=== PATIENT | female | born 1935 | race Caucasian/White ===

== ENCOUNTER 2018-09-13 05:22 | Inpatient (IN) ==
[2018-09-13] MEDS ORDERED: Metoprolol Tartrate 25 MG Tablet PO ONE (06:11)
[2018-09-13] MEDS ORDERED: Chlorhexidine Gluconate 2% 1 Pack (2 Cloths) TOPICAL ONE (06:11)
[2018-09-13] MEDS ORDERED: Sodium Chlor 0.9% Inj 40 ML, Bupivacaine Liposo PF 1.3% Inj 20 ML P-ARTICULR SCH ×2 (06:15)
[2018-09-13] MEDS ORDERED: Chlorhexidine 4% Topical 120 APPLIC/120 ML Bottle TOPICAL SCH (06:15)
[2018-09-13] MEDS ORDERED: Glycopyrrolate Inj 1 MG/5 ML Syringe IV.PUSH ONE (06:48)
[2018-09-13] MEDS ORDERED: Neostigmine Inj 5 MG/5 ML Syringe IV.PUSH ONE (06:48)
[2018-09-13] MEDS ORDERED: Phenylephrine/NS 1000 MCG/10ML Syringe IV.PUSH ONE (06:48)
[2018-09-13] MEDS ORDERED: Lidocaine PF 1% Inj 5 ML Syringe OTHER ONE (06:48)
[2018-09-13] MEDS ORDERED: SODIUM CHLOR 0.9% IV.SIG SCH ×2 (07:00→10:00)
[2018-09-13] MEDS ORDERED: ceFAZolin 2 GM Premix Inj 2 GM/50 ML PIGGYBACK IV.SIG SCH (07:00)
[2018-09-13] MEDS ORDERED: TRANEXAMIC ACID IV.SIG SCH ×2 (07:00→10:00)
[2018-09-13] MEDS ORDERED: Sodium Chlor 0.9% Inj 500 ML IV.SIG SCH (07:00)
[2018-09-13] MEDS ORDERED: Tranexamic Acid Inj 0 MG in Sodium Chlor 0.9% Inj 100 ML IV.SIG ONE (10:28)
[2018-09-13] MEDS ORDERED: Aluminum/Magnesium/Simethacone Susp 30 ML UDC PO PRN (10:28)
[2018-09-13] MEDS ORDERED: Acetaminophen 325 MG Tablet PO PRN (10:28)
[2018-09-13] MEDS ORDERED: Post-op Orders (for Pharmacy) OTHER STA (10:28)
[2018-09-13] MEDS ORDERED: Bisacodyl 10 MG Supp RECTAL PRN (10:28)
--- NOTE | 2018-09-13 10:42 | P.OP ---
- Preoperative Diagnosis (1) Primary osteoarthritis of left hip - Postoperative Diagnosis (1) Primary osteoarthritis of left hip Date of procedure: 09/13/18 Procedure: Left total hip arthroplasty using [place] prosthesis (direct anterior) Anesthesia: FARAZ local (Exparel) Surgeon: Fransisco Rothman MD Ball Winder: DEVEN Alvarez Estimated blood loss (mL): 200 Pathology: none sent Operation and Findings: Indications and Findings: This 82-year-old woman has had long-standing arthritis in her left hip that has been nonresponsive to conservative measures. She is unable to take nonsteroidal anti-inflammatory agents because she takes Plavix. She previously had a right total hip arthroplasty through an anterior approach by another orthopedic surgeon. 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 Physical findings showed limited range of motion in the left hip with tenderness on motion. She has an antalgic gait. There is a 1 cm leg length inequality with the left leg being longer than the right. Radiographic findings show severe osteoarthritis in the left hip with osteophytes, subchondral sclerosis and loss of articular cartilage to [id number]. We have had a discussion about her leg length inequality. She is aware that there is a chance that the left leg will be slightly longer than the preoperative findings which would result in her leg length inequality being slightly greater. The alternative of making the leg shorter to match her right leg could make her significantly unstable. Because she had an anterior hip done previously, this is done today. Operative findings: There was severe osteoarthritis in the left hip with loss of articular cartilage to expose subchondral bone. There is subchondral sclerosis. There were osteophytes. Implants: The acetabular component was a 50 mm Trident II cluster shell with a 36 mm inner diameter 0 X3 polyethylene liner. The femoral component was an Accolade 2, size 3 x 132 degree neck angle. The femoral head was a Biolox Delta , 36 mm outer diameter, -5 mm offset. The patient was brought to the clean air operating suite and a general endotracheal 45 anesthetic was administered. The patient was then positioned into a supine position. Both hips and lower extremities were then prepped with alcohol, Hibiclens and ChloraPrep and draped in the usual manner with the hips draped free. Patient received prophylactic antibiotics preoperatively. The patient also received tranexamic acid preoperatively. An appropriate timeout procedure was carried out. An incision was then made from a point 2 fingerbreadths distal and posterior to the anterior superior iliac spine. The incision was deepened through subcutaneous tissues down to the tensor fascia tarik. The fascia tarik was split longitudinally in line with its fibers the length of the incision. The tensor fascia tarik was teased away from the medial aspect of the fascia tarik itself. Retractors were placed in the lateral aspect of the hip at the femoral neck and at the lateral aspect of the greater trochanter. A retractor was placed on the medial side. And relief incision was made in the fascia tarik distally. Hemostasis was then carried out with electrocautery and ties. The posterior aspect of the fascia tarik was opened exposing the periarticular fat, which was excised as well. With retractors placed around the femoral neck as well as under the origin of the rectus femoris and reflected head of the rectus femoris , a longitudinal capsulotomy was made longitudinally along the femoral neck to the base of the femoral neck. Dissection was then carried out along the edge of the acetabulum. This was then carried down to the anterior aspect of the femoral neck opening the capsule and doing partial capsulectomy. The saw blade was placed into the appropriate position for a neck cut. C-arm fluoroscopy was used to verify its position. A single cut was made across the femoral neck. A second cut was made proximal to this under the femoral head. The napkin ring of bone was removed. The femoral head was removed. The acetabular soft tissues were cleaned including the depths of the acetabulum and the remnants of the ligamentum teres as well as the labrum. Retractors were placed about the acetabulum. Reaming this was initiated with a 45 millimeter reamer. This was carried in 1-2 mm increments up to 49 millimeters. A 50 millimeter external diameter trial prosthesis was placed into the acetabulum and seated appropriately. C-arm fluoroscopy verified this position. The trial prosthesis was removed. The actual prosthesis as noted above was impacted in place. When this was seated C arm fluoroscopy verified the appropriate position. A drill hole was made into the pelvis through the fenestration in the cup. An appropriate sized screw was inserted. Release of the capsule around the femur was then carried out with electrocautery. A bone hook in the medullary canal helped to position and appropriate this appropriately. With the previous retractors removed, retractors were placed about the proximal femur. Carefully, a double pronged retractor was placed under the tip of the greater trochanter posteriorly. The hook was used to laterally and distally place the proximal end of the femur. The position was placed into Trendelenburg with the foot dropped somewhat to break the bed. This hyperextended the hip. Preparation of the femur was initiated with a box osteotome followed by a curet to identify the medullary canal. Broaching was initiated with the starting broach and went in 1 size increments from size 0 up to size 3. The broach handle was removed. The femoral neck was trimmed with a calcar planar. Osteophytes were trimmed from the acetabulum. Local anesthetic was administered throughout the area of the acetabulum and posterior aspect of the femur. The trial neck was placed on the broach for the above-noted prosthesis. The femoral head trial was placed onto the femoral neck . A trial reduction was then carried out. Adjustment was made as needed. The stability, leg length and motion were excellent. There was no pistoning. The trial prosthesis was removed. The broach was removed. The femoral component was impacted into the medullary canal of the femur after irrigation and suctioning. When this was appropriately seated a trial reduction was carried out with the trial prosthesis. Again, there was no pistoning. The leg length was appropriate as verified clinically and radiographically. The stability and motion were excellent. The trial prosthesis was removed. After cleaning and drying the trunion of the femoral component, the above-noted femoral head was impacted onto the trunnion. The hip was reduced. The stability and mobility were checked along with leg lengths as noted above. The hip was positioned appropriately. Closure commenced after the remainder of the local anesthetic was injected throughout the hip. The fascia tarik was repaired with #1 Vicryl interrupted [id number] sutures. The subcutaneous tissues were closed with 2-0 Vicryl interrupted simple sutures with buried knots. The skin was closed with a continuous subcuticular closure of 4-0 Monocryl. The wound was approximated with Dermabond Prineo. A silver impregnated dressing was applied to the hip. The patient was transferred from the operating room to the recovery room in satisfactory condition having tolerated the procedure well. Counts are correct. Specimens: None. Estimated blood loss: 200 mL
[2018-09-13] MEDS ORDERED: fentaNYL Citrate Inj 100 MCG/2 ML Ampul ONE (10:54)
--- NOTE | 2018-09-13 10:55 | P.DCO ---
- Physical Therapy Physical Therapy: Gait training Hip: Total hip, Other (Anterior hip precautions), Protocol: Left, Progress to weight bearing Left Lower Extremity Weight Bearing: Weight bearing as tolerated Left Lower Extremity Range of Motion: Active ROM - Nursing Nursing: Dressing changes (Do not remove Dermabond Prineo (the tape that is directly on the wound).Leave the Optifoam dressing in place for 7 days. After this, daily dressing changes will be done taking care to avoid injuring or removing the Dermabond Prineo.) Dressing changes: Daily dressing change (Do not remove Dermabond Prineo (the tape that is directly on the wound).Leave the Optifoam dressing in place for 7 days. After this, daily dressing changes will be done taking care to avoid injuring or removing the Dermabond Prineo.), Coverderm/Primapore - Certification Need for Home Health services: I have seen patient Suzie Cole on 09/13/18. My clinical findings support the need for the requested home health care services because: Need for Home Health Services: Deconditioned with increased weakness, High risk of falls Homebound Certification: I certify that my clinical findings support that this patient is homebound because: Homebound Certification: Post-op weakness, Unsteady gait/balance, Unsafe to leave home unassisted
[2018-09-13] MEDS ORDERED: Ketorolac Inj 30 MG/ML (IVP) Vial ONE (11:34)
[2018-09-13] MEDS: Ketorolac Inj 30 MG/ML (IVP) Vial IV.PUSH SCH ×3 (11:38→23:30)
--- NOTE | 2018-09-13 14:05 | XR ---
EXAM DATE: 09/13/2018 2:01 PM EDT AGE/SEX: 82 years / Female INDICATIONS: Total left hip replacement. CLINICAL DATA: This is the patient's initial encounter. Patient reports that signs and symptoms have been present for 1 day and indicates a pain score of Nonresponsive. MEDICAL/SURGICAL HISTORY: None. Non-responsive. COMPARISON: . FINDINGS: The patient is post left hip arthroplasty. Orthopedic hardware is in excellent position. The alignmen t is good. CONCLUSION: Orthopedic hardware in excellent position. Electronically signed by: Garrison Sumner MD 09/13/2018 2:04 PM EDT
--- NOTE | 2018-09-13 17:30 | P.CON ---
History of Present Illness Service: Hospitalist Consult date: 09/13/18 Requesting Physician: Fransisco Rothman Reason for Consult: Assist with medical management Primary Care Provider: KELLIE Orona History of Present Illness: This is an 82yo female with a PMHX of DDD lumbar spine with cauda equina syndrome who self caths, HTN, dyslipidemia, hx of mesenteric artery stenosis s/ p angioplasty, bilateral carotid endarterectomy, bilateral iliac vein thrombosis s/p stenting, previous right total hip replacement and degenerative joint disease of the left hip who tried and failed attempts at conservative therapy as outpatient and underwent an elective left AASHISH performed by Dr. Rothman earlier today. Patient had an EBL of 200cc. Hospitalist services have been consulted to assist with ongoing medical management. Patient seen and examined. She is complaining of postoperative pain in the left hip and anterior thigh. She is upset she cannot have cranberry juice on a nondairy diet. She is asking for her Neurontin medication. She denies any chest pain or dyspnea. She denies any nausea, vomiting or abdominal pain. She lives alone and performs all of her own ADLs. Review of Systems All other systems reviewed negative except as stated in HPI PMFSH - History History Provided By: Patient - Medical History Medical History: Medical History (Last Reviewed 09/13/18 @ 17:13 by Hilary Rojo) Able to perform intermittent urethral self-catheterization Cauda equina syndrome Dental bridge present High cholesterol History of anesthesia reaction History of iliac vein thrombosis Hx of hysterectomy Hypertension Mesenteric artery stenosis Neuropathy Pain in right hip Self-catheterizes urinary bladder Wears glasses Wears partial dentures - Surgical History Surgical History: Surgical History (Last Reviewed 09/13/18 @ 17:13 by Hilary Rojo) History of bilateral carotid endarterectomy History of bunionectomy of both great toes History of total right hip arthroplasty Hx of appendectomy Hx of cataract removal with insertion of prosthetic lens Hx of detached retina repair Hx of dilation and curettage Hx of lumbar discectomy Hx of vein stripping - Family History Family History: Family History (Last Updated 09/13/18 @ 17:13 by Hilary Rojo) Father Tuberculosis Mother COPD (chronic obstructive pulmonary disease) - Social History I have reviewed the patient's Social History: Yes - Tobacco History Second Hand Smoke Exposure: No Smoking Status: Former smoker - Alcohol History How Often Do You Have a Drink Containing Alcohol: Never - Substance Use History Substance History: No History of Abuse - Travel History Recent Travel in the [place] Within the Last 8 Weeks: No Recent Travel Out of the Country Within the Last 8 Weeks: No Medications and Allergies Active Medications: Active Medications Acetaminophen (Tylenol) 650 mg PO Q6H PRN PRN Reason: Pain Less Than 3 On Scale Hydrocodone Bitart/Acetaminophen ([place] 7.5/325) 1 tab PO Q4H PRN PRN Reason: PAIN SCALE 4 TO 6 MODERATE Last Admin: 09/13/18 13:02 Dose: 1 tab Hydrocodone Bitart/Acetaminophen ([place] 7.5/325) 2 tab PO Q6H PRN PRN Reason: PAIN SCALE 7 TO 10 SEVERE Al Hydrox/Mg Hydrox/Simethicone (Mag-Al Plus Susp Liq) 30 ml PO Q6H PRN PRN Reason: INDIGESTION Al Hydroxide/Mg Hydroxide (Milk Of Magnesia Liq) 30 ml PO BID PRN PRN Reason: Mild Constipation Amlodipine Besylate (Norvasc) 10 mg PO HS [facility] Atorvastatin Calcium (Lipitor) 20 mg PO DAILY [facility] Bisacodyl (Dulcolax Supp) 10 mg RECTAL DAILY PRN PRN Reason: SEVERE CONSITIPATION Calcium Carbonate (Oscal) 500 mg PO BID [facility] Chlorhexidine Gluconate (Hibiclens 4% Topical) 1 applicatio TOPICAL ONCE [facility] Stop: 09/17/18 06:14 Clopidogrel Bisulfate (Plavix) 75 mg PO DAILY [facility] Diphenhydramine HCl (Benadryl) 25 mg PO Q6H PRN PRN Reason: ITCHING Docusate Sodium (Colace Liq) 50 mg PO HS [facility] Gabapentin (Neurontin) 300 mg PO TID [facility] Cefazolin Sodium/Dextrose (Ancef 2 Gm Premix Inj) 2 gm in 50 mls @ 100 mls/hr IV.SIG DEPUTY PROBATION OFFICER [facility] Stop: 09/17/18 06:59 Last Infusion: 09/13/18 08:32 Dose: Infused Tranexamic Acid 657 mg/ Sodium (Chloride) 106.57 mls @ 200 mls/hr IV.SIG ONCE [facility] Stop: 09/13/18 18:00 Last Infusion: 09/13/18 10:45 Dose: Infused Lactated Ringer's (Lr 1000 Ml Inj) 1,000 mls @ 30 mls/hr IV.SIG .Q24H [facility] Stop: 09/14/18 06:14 Last Infusion: 09/13/18 10:45 Dose: Infused Sodium Chloride (Ns Inj) 500 mls @ 30 mls/hr IV.SIG .Q10H [facility] Last Admin: 09/13/18 06:31 Dose: Not Given Lactated Ringer's (Lr 1000 Ml Inj) 1,000 mls @ 80 mls/hr IV.CONT .[id number] [facility] Last Admin: 09/13/18 11:30 Dose: 80 mls/hr Cefazolin Sodium 1,000 mg/ (Sodium Chloride) 100 mls @ 200 mls/hr IV.SIG Q6H [facility] Stop: 09/14/18 01:29 Last Admin: 09/13/18 13:25 Dose: 200 mls/hr Ketorolac Tromethamine (Toradol Inj) 15 mg IV.PUSH Q6H [facility] Stop: 09/15/18 05:31 Last Admin: 09/13/18 11:38 Dose: 15 mg Lactulose (Lactulose Liq) 30 ml PO DAILY PRN PRN Reason: SEVERE CONSITIPATION Loratadine (Claritin) 10 mg PO DAILY PRN PRN Reason: ALLERGIES Losartan Potassium (Cozaar) 50 mg PO BID [facility] Magnesium Oxide (Mag-Ox) 400 mg PO DAILY [facility] Metoprolol Tartrate (Lopressor) 25 mg PO DAILY [facility] Metoprolol Tartrate (Lopressor) 50 mg PO HS [facility] Miscellaneous Information (Mis Nursing Information) 0 each OTHER UNSCH PRN PRN Reason: SEE LABEL COMMENTS Stop: 09/14/18 10:48 Morphine Sulfate (Morphine Inj) 2 mg IV.PUSH Q3H PRN PRN Reason: BREAKTHROUGH PAIN Ondansetron HCl (Zofran Odt) 4 mg PO Q6H PRN PRN Reason: NAUSEA OR VOMITING Senna/Docusate Sodium (Anh-Colace) 1 tab PO BID [facility] Sennosides (Senokot) 17.2 mg PO BID PRN PRN Reason: Moderate Constipation Sodium Chloride (Ns Flush) 2 ml IV.FLUSH BID [facility] Sodium Chloride (Ns Flush) 2 ml IV.FLUSH PRN PRN PRN Reason: FLUSH AFTER USING IV ACCESS Spironolactone (Aldactone) 25 mg PO DAILY [facility] Vitamin D (Vitamin D3) 2,000 unit PO DAILY [facility] Zolpidem Tartrate (Ambien) 5 mg PO HS PRN PRN Reason: INSOMNIA Allergies Allergy/AdvReac Type Severity Reaction Status Date / Time ciprofloxacin Allergy Severe rash Verified 09/13/18 06:05 diatrizoate meglumine Allergy Severe hives Verified 09/13/18 06:05 gadobenic acid Allergy Severe hives Verified 09/13/18 06:05 gadodiamide Allergy Severe hives Verified 09/13/18 06:05 gadoteridol Allergy Severe hives Verified 09/13/18 06:05 hydrochlorothiazide Allergy Severe Itching, Verified 09/13/18 06:05 Generalized iodixanol Allergy Severe hives Verified 09/13/18 06:05 iohexol Allergy Severe hives Verified 09/13/18 06:05 milk [Dairy] Allergy Severe Swelling Verified 09/13/18 06:05 of Lip/Tongue/Throat penicillin G Allergy Severe rash Verified 09/13/18 06:05 Sulfa (Sulfonamide Allergy Severe rash Verified 09/13/18 06:05 Antibiotics) epinephrine AdvReac Severe elevated Verified 09/13/18 06:05 HEART RATE Home Medications Medication Instructions Recorded Confirmed Type amlodipine [Norvasc] 10 mg PO HS 09/02/18 09/13/18 History calcium carbonate [Calcium 500] 500 mg PO BID 09/02/18 09/13/18 History cholecalciferol (vitamin D3) 2,000 unit PO DAILY 09/02/18 09/13/18 History [Vitamin D3] clopidogrel [Plavix] 75 mg PO DAILY 09/02/18 09/13/18 History docusate sodium [Stool Softener] 50 mg PO HS 09/02/18 09/13/18 History fexofenadine [Dena Allergy] 180 mg PO Q24H PRN 09/02/18 09/13/18 History gabapentin [Neurontin] 1 cap PO TID 09/02/18 09/13/18 History hydrocodone-acetaminophen 1 tab PO HS PRN 09/02/18 09/13/18 History magnesium 250 mg PO DAILY 09/02/18 09/13/18 History metoprolol tartrate 25 mg PO DAILY 09/02/18 09/13/18 History metoprolol tartrate 50 mg PO HS 09/02/18 09/13/18 History olmesartan [Benicar] 20 mg PO BID 09/02/18 09/13/18 History omega [id number]-fish oil [Fish Oil] 2 cap PO DAILY 09/02/18 09/13/18 History rosuvastatin [Crestor] 10 mg PO DAILY 09/02/18 09/13/18 History spironolactone 25 mg PO DAILY 09/02/18 09/13/18 History Physical Exam Vital signs: Vital Signs 09/13/18 06:00 09/13/18 10:48 09/13/18 11:00 Temperature 98.3 F 97.4 F L Pulse Rate 66 70 69 Respiratory Rate 16 26 H 12 Blood Pressure 172/75 H 129/58 L 126/59 L Pulse Oximetry 98 99 100 09/13/18 11:15 09/13/18 11:30 09/13/18 11:45 Temperature Pulse Rate 66 63 66 Respiratory Rate 15 14 12 Blood Pressure 133/62 134/62 130/59 L Pulse Oximetry 99 100 100 09/13/18 12:00 09/13/18 12:58 Temperature 97.3 F L 98.7 F Pulse Rate 68 62 Respiratory Rate 14 18 Blood Pressure 126/60 132/60 Pulse Oximetry 100 99 Intake & Output 09/12/18 09/13/18 09/13/18 18:59 06:59 18:59 Intake Total 1663.14 / 1663.14 Output Total 400 / 400 Balance 1263.14 / 1263.14 Weight 65.7 kg Intake: IV 1263.14 / 1263.14 LR 1000 mL Inj 1,000 ML @ 30 1000 / 1000 mls/hr IV.SIG .Q24H [facility] Rx#: [id number] Cyklokapron Inj 657 MG In NS 213.14 / 213.14 Inj 100 ML @ 200 mls/hr IV.SIG ONCE [facility] Rx#:[id number] Ancef 2 GM Premix Inj 2 gm In 50 / 50 50 ml @ 100 mls/hr IV.SIG DEPUTY PROBATION OFFICER [facility] Rx#:[id number] Anesthesia Amount 400 / 400 Output: Estimated Blood Loss 400 / 400 Other: Weight On Admission 65.7 kg Narrative: GENERAL: WDWN elderly female patient, INAD. Awake and alert. Sitting up in bedside chair. SKIN: Warm and dry. HEAD: Atraumatic. Normocephalic. EYES: Pupils equal and round. No scleral icterus. No injection or drainage. ENT: No nasal bleeding or discharge. Mucous membranes pink and moist. NECK: Trachea midline. CARDIOVASCULAR: Regular rate and rhythm. RESPIRATORY: No accessory muscle use. Clear to auscultation. Breath sounds equal bilaterally. GASTROINTESTINAL: Abdomen soft, non-tender, nondistended. Hypoactive BS. MUSCULOSKELETAL: Extremities without clubbing, cyanosis, or edema. s/p Left total hip replacement, postop dressing in place, C/D/I. NEUROLOGICAL: Awake and alert. No obvious cranial nerve deficits. Motor grossly within normal limits. Able to move all extremities spontaneously. Normal speech. PSYCHIATRIC: Appropriate mood and affect; insight and judgment normal. - Urinary Catheter Management Straight Cath placed during this visit: yes, but has since been removed by the nurse Reason for continuing: Not indwelling catheter Insertion date: 09/13/18 Insertion time: 11:50 Removal date: 09/13/18 Removal time: 12:02 Assessment and Plan - Plan 82yo female with a PMHX of 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 Rothman earlier today. Hospitalist services have been consulted to assist with ongoing medical management. DJD left hip, tried and failed attempts at conservative management, s/p elective left total hip arthroplasty -Management per Ortho service -maintain hip precautions -monitor H/H postoperatively -PT eval/tx -pain management with bowel regimen -monitor wound for proper healing Hypertension BP currently well controlled -continue on Lopressor, Cozaar, Norvasc and Aldactone -continue to monitor BP and adjust treatment accordingly Dyslipidemia -continue patient on statin therapy Neuropathy -continue patient on home Gabapentin 300mg TID DDD lumbar spine Cauda equina syndrome, chronic Self caths at home -continue with self catheterization Hx of carotid stenosis, mesenteric artery stenosis and bilateral iliac vein thrombosis -patient resumed on home medication Plavix per Ortho service DVT prophylaxis -per Orthopedic service Thank you very kindly for this consultation. We will continue to follow along with you. Code Status: Full Discussed Condition With: patient, nursing staff Discharge Planning: discharge disposition per primary service
[2018-09-13] MEDS ORDERED: Zolpidem Tartrate 5 MG Tablet PO PRN (21:00)
[2018-09-13] MEDS ORDERED: amLODIPine 10 MG Tablet PO SCH (21:00)
[2018-09-13] MEDS ORDERED: Gabapentin 300 MG Capsule PO SCH (21:00)
[2018-09-13] MEDS ORDERED: Metoprolol Tartrate 50 MG Tablet PO SCH (21:00)
[2018-09-13] MEDS: Gabapentin 300 MG Capsule PO SCH (21:48)
[2018-09-13] MEDS: Morphine Inj 4 MG/ML Vial IV.PUSH PRN (21:48)
[2018-09-13] MEDS: Docusate Sodium Liq 100 MG/10 ML UDC PO SCH (21:51)
[2018-09-13] MEDS: Senna/Docusate Sodium 8.6/50 MG Tablet PO SCH (21:52)
[2018-09-13] MEDS: Calcium Carbonate 500 MG Tablet PO SCH (21:52)
[2018-09-14] MEDS: Morphine Inj 4 MG/ML Vial IV.PUSH PRN ×2 (02:17→05:51)
[2018-09-14 05:39] LABS: Hematocrit 25.8 % (35.0-46.0); Hemoglobin 9.1 gm/dL (11.6-15.3)
[2018-09-14 05:55] LABS: Calcium 8.2 mg/dL (8.5-10.1); Carbon Dioxide 29.6 meq/L (21.0-32.0); Potassium 4.7 meq/L (3.5-5.1)
[2018-09-14] MEDS: Ketorolac Inj 30 MG/ML (IVP) Vial IV.PUSH SCH ×3 (06:00→17:37)
--- NOTE | 2018-09-14 06:19 | P.PNOP ---
Subjective Interval history: Postop day #1 She indicates that she has been very painful. She has been taking the pain medication. She has trouble moving her leg. Physical therapy reports that the ambulation distance was 30 feet. Physical Exam Vital signs: Vital Signs 09/13/18 10:48 09/13/18 11:00 09/13/18 11:15 Temperature 97.4 F L Pulse Rate 70 69 66 Respiratory Rate 26 H 12 15 Blood Pressure 129/58 L 126/59 L 133/62 Pulse Oximetry 99 100 99 09/13/18 11:30 09/13/18 11:45 09/13/18 12:00 Temperature 97.3 F L Pulse Rate 63 66 68 Respiratory Rate 14 12 14 Blood Pressure 134/62 130/59 L 126/60 Pulse Oximetry 100 100 100 09/13/18 12:58 09/13/18 16:00 09/13/18 20:00 Temperature 98.7 F 98.1 F 97.3 F L Pulse Rate 62 70 61 Respiratory Rate 18 18 18 Blood Pressure 132/60 121/65 116/56 L Pulse Oximetry 99 100 97 09/14/18 00:00 Temperature 97.9 F Pulse Rate 72 Respiratory Rate 17 Blood Pressure 120/55 L Pulse Oximetry 94 L Intake & Output 09/13/18 09/13/18 09/14/18 06:59 18:59 06:59 Intake Total 2163.14 / 2163.14 100 / 100 Output Total 800 / 800 Balance 1363.14 / 1363.14 100 / 100 Weight 65.7 kg 65.7 kg Intake: IV 1363.14 / 1363.14 100 / 100 LR 1000 mL Inj 1,000 ML @ 30 1000 / 1000 mls/hr IV.SIG .Q24H [facility] Rx#: [id number] Cyklokapron Inj 657 MG In NS 213.14 / 213.14 Inj 100 ML @ 200 mls/hr IV.SIG ONCE [facility] Rx#:[id number] Ancef 2 GM Premix Inj 2 gm In 50 / 50 50 ml @ 100 mls/hr IV.SIG [employer] [facility] Rx#:[id number] Ancef Inj 1,000 MG In NS Inj 100 / 100 100 / 100 100 ML @ 200 mls/hr IV.SIG Q6H [facility] Rx#:[id number] Anesthesia Amount 800 / 800 Output: Estimated Blood Loss 800 / 800 Other: Date of Last Bowel Movement 09/12/18 Weight On Admission 65.7 kg Narrative: She is resting comfortably, supine in bed. The neurovascular status is intact. The dressing is dry and intact. There is no significant tenderness to palpation in the thigh or perioperative area. - Urinary Catheter Management Straight Cath placed during this visit: yes, but has since been removed by the nurse Reason for continuing: Not indwelling catheter Insertion date: 09/13/18 Insertion time: 11:50 Removal date: 09/13/18 Removal time: 12:02 Results - Labs CBC & Chem 7: 09/14/18 05:15 09/14/18 05:15 Laboratory Results - last 24 hr 09/13/18 09/14/18 09/14/18 06:10 05:15 05:15 Hgb 9.1 L Hct 25.8 L Sodium 138 Potassium 4.7 Chloride 103 Carbon Dioxide 29.6 Anion Gap 5 BUN 21 H Creatinine 0.90 Estimated GFR 60 L Random Glucose 125 H Calcium 8.2 L Blood Type O Positive Blood Type Recheck Not needed Antibody Screen Negative - Imaging Impressions Hip X-Ray 09/13/18 00:00 CONCLUSION: Orthopedic hardware in excellent position. - Procedures Postop right total hip arthroplasty using Vinod prosthesis (direct anterior approach). Assessment and Plan - Ortho Post Op Day # 1 - Problem List (1) Status post total replacement of left hip Code(s): Z96.642 - Presence of left artificial hip joint Status: Acute - Assessment and Plan Condition: Good. Orthopedically stable. DVT prophylaxis: TEDs, resumption of Plavix, sequentials. Discharge plans: Home with home health care. An appointment was scheduled through the office. Prescriptions: [place] 7.5/325; Patient is having significant pain caused by a total hip arthroplasty which will last more than 3 days. Trial of Tylenol has not helped. I believe that it is medically necessary to treat patients pain because it is affecting patients ability to participate in postoperative rehabilitation and perform activities of daily living in a comfortable and efficient manner.
[2018-09-14] MEDS ORDERED: Spironolactone 25 MG Tablet PO SCH (09:00)
[2018-09-14] MEDS ORDERED: Non-Formulary Drug (Omega 3-Dha-Epa-Fish Oil [Fish Oil] 2 CAP) PO SCH (09:00)
[2018-09-14] MEDS ORDERED: Loratadine 10 MG Tablet PO PRN (09:00)
--- NOTE | 2018-09-14 09:00 | P.PNIM ---
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 Patient seen and examined laying in bed, complains she cannot move her left. Patient stated that this happened to her when she had back surgery and had a physical therapy for 3 months. Patient stated pain under control right now patient denies any headache, chest pain or shortness of breath. Patient denies any abdominal pain, nausea, vomiting, diarrhea or constipation. Patient denies any fever or chills. Physical Exam Vital signs: Vital Signs 09/13/18 10:48 09/13/18 11:00 09/13/18 11:15 Temperature 97.4 F L Pulse Rate 70 69 66 Respiratory Rate 26 H 12 15 Blood Pressure 129/58 L 126/59 L 133/62 Pulse Oximetry 99 100 99 09/13/18 11:30 09/13/18 11:45 09/13/18 12:00 Temperature 97.3 F L Pulse Rate 63 66 68 Respiratory Rate 14 12 14 Blood Pressure 134/62 130/59 L 126/60 Pulse Oximetry 100 100 100 09/13/18 12:58 09/13/18 16:00 09/13/18 20:00 Temperature 98.7 F 98.1 F 97.3 F L Pulse Rate 62 70 61 Respiratory Rate 18 18 18 Blood Pressure 132/60 121/65 116/56 L Pulse Oximetry 99 100 97 09/14/18 00:00 09/14/18 04:00 Temperature 97.9 F 98.4 F Pulse Rate 72 80 Respiratory Rate 17 18 Blood Pressure 120/55 L 102/49 L Pulse Oximetry 94 L 95 Intake & Output 09/13/18 09/14/18 09/14/18 18:59 06:59 18:59 Intake Total 2163.14 / 2163.14 100 / 100 Output Total 800 / 800 500 / 500 Balance 1363.14 / 1363.14 -400 / -400 Weight 65.7 kg 65.5 kg Intake: IV 1363.14 / 1363.14 100 / 100 LR 1000 mL Inj 1,000 ML @ 30 1000 / 1000 mls/hr IV.SIG .Q24H [facility] Rx#: [id number] Cyklokapron Inj 657 MG In NS 213.14 / 213.14 Inj 100 ML @ 200 mls/hr IV.SIG ONCE [facility] Rx#:[id number] Ancef 2 GM Premix Inj 2 gm In 50 / 50 50 ml @ 100 mls/hr IV.SIG STEWARD/STEWARDESS BATH [facility] Rx#:[id number] Ancef Inj 1,000 MG In NS Inj 100 / 100 100 / 100 100 ML @ 200 mls/hr IV.SIG Q6H [facility] Rx#:[id number] Anesthesia Amount 800 / 800 Output: Estimated Blood Loss 800 / 800 Urine Amount (Catheter) 500 / 500 Straight 500 / 500 Other: Date of Last Bowel Movement 09/12/18 Narrative: GENERAL: Well-developed, well-nourished, elderly female, in no apparent distress SKIN: Warm and dry. Left hip incision dressed dry and intact, trace edema HEAD: Atraumatic. Normocephalic. EYES: Pupils equal and round. No scleral icterus. No injection or drainage. ENT: No nasal bleeding or discharge. Mucous membranes pink and moist. NECK: Trachea midline. No JVD. CARDIOVASCULAR: Regular rate and rhythm, positive murmur RESPIRATORY: No accessory muscle use. Clear to auscultation. Breath sounds equal bilaterally. GASTROINTESTINAL: Abdomen obese, soft, non-tender, nondistended. Hepatic and splenic margins not palpable. MUSCULOSKELETAL: Extremities without clubbing, cyanosis. No obvious deformities. Left hip/lower leg with very limited range of motion, left hip trace edema. Moving all other 3 extremities NEUROLOGICAL: Awake and alert. No obvious cranial nerve deficits. Motor grossly within normal limits. Normal speech. PSYCHIATRIC: Anxious mood and affect; insight and judgment normal. - Urinary Catheter Management Straight Cath placed during this visit: yes, but has since been removed by the nurse Reason for continuing: Not indwelling catheter Insertion date: 09/13/18 Insertion time: 11:50 Removal date: 09/13/18 Removal time: 12:02 Results - Labs CBC & Chem 7: 09/14/18 05:15 09/14/18 05:15 Laboratory Results - last 24 hr 09/14/18 09/14/18 05:15 05:15 Hgb 9.1 L Hct 25.8 L Sodium 138 Potassium 4.7 Chloride 103 Carbon Dioxide 29.6 Anion Gap 5 BUN 21 H Creatinine 0.90 Estimated GFR 60 L Random Glucose 125 H Calcium 8.2 L - Imaging Impressions Hip X-Ray 09/13/18 00:00 CONCLUSION: Orthopedic hardware in excellent position. - Procedures Postop right total hip arthroplasty using Vinod prosthesis (direct anterior approach). 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 Rothman earlier today. Hospitalist services have been consulted to assist with ongoing medical management. DJD left hip, tried and failed attempts at conservative management, s/p elective left total hip arthroplasty -Management per Ortho service -maintain hip precautions -monitor H/H postoperatively -PT eval/tx -pain management with bowel regimen -monitor wound for proper healing Hypertension BP in the low side, likely due to sedative medications/anesthesia -IV fluid half-normal saline times 2 L -continue on Lopressor, -Hold Cozaar Cozaar, Norvasc and Aldactone for low blood pressure -continue to monitor BP and adjust treatment accordingly Dyslipidemia -continue patient on statin therapy Neuropathy. Chronic -continue patient on home Gabapentin 300mg TID DDD lumbar spine Cauda equina syndrome, chronic Self catheter at home -continue with self catheterization Hx of carotid stenosis, mesenteric artery stenosis and bilateral iliac vein thrombosis -patient resumed on home medication Plavix per Ortho service DVT prophylaxis -per Orthopedic service Code Status: Full code Discussed Condition With: Patient and nurse
[2018-09-14] MEDS: Gabapentin 300 MG Capsule PO SCH ×3 (10:21→17:37)
[2018-09-14] MEDS: Magnesium Oxide 400 MG Tablet PO SCH (10:21)
[2018-09-14] MEDS: Calcium Carbonate 500 MG Tablet PO SCH ×2 (10:22→22:00)
[2018-09-14] MEDS: Senna/Docusate Sodium 8.6/50 MG Tablet PO SCH ×2 (10:22→21:50)
[2018-09-14] MEDS: Metoprolol Tartrate 25 MG Tablet PO SCH ×2 (10:24→17:47)
[2018-09-14] MEDS: Sodium Chloride 0.45 % Inj 1,000 ML IV.CONT SCH (10:34)
[2018-09-15] MEDS: Sodium Chloride 0.45 % Inj 1,000 ML IV.CONT SCH ×3 (01:24→16:44)
[2018-09-15] MEDS: Ketorolac Inj 30 MG/ML (IVP) Vial IV.PUSH SCH ×2 (02:00→07:26)
[2018-09-15] MEDS: Metoprolol Tartrate 25 MG Tablet PO SCH ×2 (02:04→08:47)
[2018-09-15] MEDS: Docusate Sodium Liq 100 MG/10 ML UDC PO SCH ×2 (02:05→20:18)
[2018-09-15 05:56] LABS: Baso % (Auto) 0.2 % (0.0-2.0); Eos # (Auto) 0.1 th/mm3 (0.0-0.4); Eos % (Auto) 0.5 % (0.0-4.0); Hematocrit 21.8 % (35.0-46.0); Hemoglobin 7.5 gm/dL (11.6-15.3); Lymph % (Auto) 9.3 % (9.0-44.0); Mean Corpuscular HGB Conc 34.2 % (32.0-36.0); Mean Corpuscular Hemoglobin 32.7 pg (27.0-34.0); Mean Corpuscular Volume 95.6 fL (80.0-100.0); Mean Platelet Volume 8.6 fL (7.0-11.0); Mono # (Auto) 0.9 th/mm3 (0.0-0.9); Mono % (Auto) 8.1 % (0.0-8.0); Neut # (Auto) 8.7 th/mm3 (1.8-7.7); Neut % (Auto) 81.9 % (16.0-70.0); Platelet Count 171 th/mm3 (150-450); Red Blood Count 2.28 mil/mm3 (4.00-5.30); Red Cell Distribution Width 12.8 % (11.6-17.2); White Blood Count 10.6 th/mm3 (4.0-11.0)
[2018-09-15 06:10] LABS: Calcium 8.5 mg/dL (8.5-10.1); Carbon Dioxide 25.9 meq/L (21.0-32.0); Potassium 4.7 meq/L (3.5-5.1)
--- NOTE | 2018-09-15 07:26 | P.PNOP ---
Subjective Interval history: Postop day #2 She indicates today that in light of her slow progress with therapy as well as the difficulty that she currently has with self-catheterization, she would prefer going to a long term facility for rehabilitation at least for a few days. She has some pain in the thigh still. She has difficulty raising the leg. She denies any neurologic deficits. Physical therapy reports that the ambulation distance was 15 feet, hampered by dizziness. Physical Exam Vital signs: Vital Signs 09/14/18 08:00 09/14/18 12:00 09/14/18 15:54 Temperature 98.1 F 98 F 98.7 F Pulse Rate 62 71 78 Respiratory Rate 16 16 16 Blood Pressure 93/45 L 120/62 121/58 L Pulse Oximetry 91 L 93 L 92 L 09/14/18 20:00 09/15/18 00:00 09/15/18 04:00 Temperature 97.4 F L 98.1 F 97.9 F Pulse Rate 73 76 80 Respiratory Rate 18 18 18 Blood Pressure 128/60 110/62 119/56 L Pulse Oximetry 93 L 93 L 94 L Intake & Output 09/14/18 09/15/18 09/15/18 18:59 06:59 18:59 Intake Total 1640 / 1640 Output Total 1100 / 1100 Balance 1640 / 1640 -1100 / -1100 Weight 65.5 kg Intake: IV 1000 / 1000 LR 1000 mL Inj 1,000 ML @ 80 1000 / 1000 mls/hr IV.CONT .[id number] [facility] Rx# :[id number] Oral 640 / 640 Output: Urine Amount (Catheter) 1100 / 1100 Straight 1100 / 1100 Other: # Voids 0 # Bowel Movements 0 Narrative: She is resting comfortably, supine in bed. The dressing is dry and intact. The neurovascular status is intact. There is some swelling and tenderness in the proximal thigh. - Urinary Catheter Management Straight Cath placed during this visit: yes, but has since been removed by the nurse Reason for continuing: Not indwelling catheter Insertion date: 09/14/18 Insertion time: 19:54 Removal date: 09/13/18 Removal time: 12:02 Results - Labs CBC & Chem 7: 09/15/18 04:47 09/15/18 04:47 Laboratory Results - last 24 hr 09/15/18 09/15/18 04:47 04:47 WBC 10.6 RBC 2.28 L Hgb 7.5 L Hct 21.8 L MCV 95.6 MCH 32.7 MCHC 34.2 RDW 12.8 Plt Count 171 D MPV 8.6 Neut % (Auto) 81.9 H Lymph % (Auto) 9.3 [place] % (Auto) 8.1 H Eos % (Auto) 0.5 Baso % (Auto) 0.2 Neut # (Auto) 8.7 H Lymph # (Auto) 1.0 [place] # (Auto) 0.9 Eos # (Auto) 0.1 Baso # (Auto) 0.0 WBC Differential . Differential Comment Auto diff final Sodium 133 L Potassium 4.7 Chloride 99 Carbon Dioxide 25.9 Anion Gap 8 BUN 28 H Creatinine 1.07 H Estimated GFR 49 L Random Glucose 118 H Calcium 8.5 - Imaging Hip X-Ray 09/13/18 00:00 CONCLUSION: Orthopedic hardware in excellent position. - Procedures Postop right total hip arthroplasty using Vinod prosthesis (direct anterior approach). Assessment and Plan - Ortho Post Op Day # 2 - Problem List (1) Status post total replacement of left hip Code(s): Z96.642 - Presence of left artificial hip joint Status: Acute Plan: To new postop care and PT. - Assessment and Plan Condition: Good. Orthopedically stable. DVT prophylaxis: TEDs, resumption of Plavix, sequentials. Discharge plans: She has decided to go to a long term facility for rehabilitation and prefers either [facility] or [facility]. An appointment was scheduled through the office. Prescriptions: [place] 7.5/325; Patient is having significant pain caused by a total hip arthroplasty which will last more than 3 days. Trial of Tylenol has not helped. I believe that it is medically necessary to treat patients pain because it is affecting patients ability to participate in postoperative rehabilitation and perform activities of daily living in a comfortable and efficient manner.
--- NOTE | 2018-09-15 08:46 | P.PNIM ---
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 Patient seen and examined laying in the bed, denies any pain stated no pain if she is not moving however states that she is in excruciating pain when moving at 5-6 out of 10 scale. Pain is aggravated by moving and relieved with rest. Patient stated that she self cath at home however at this time because of her surgery she is unable to self cath herself and discuss concern about going home to make arrangement for a self cath or the option of going to nursing rehab facility for a few days to assist with her self cath. Patient stated that she will talk to her daughter and help her decide what to do. Discussed options concern will discuss with social sciences lecturer to assist with placement. Patient denies any headache or dizziness, chest pain or shortness of breath. Patient denies any abdominal pain, nausea, vomiting, diarrhea or constipation. Patient denies any headache or dizziness. Physical Exam Vital signs: Vital Signs 09/14/18 12:00 09/14/18 15:54 09/14/18 20:00 Temperature 98 F 98.7 F 97.4 F L Pulse Rate 71 78 73 Respiratory Rate 16 16 18 Blood Pressure 120/62 121/58 L 128/60 Pulse Oximetry 93 L 92 L 93 L 09/15/18 00:00 09/15/18 04:00 Temperature 98.1 F 97.9 F Pulse Rate 76 80 Respiratory Rate 18 18 Blood Pressure 110/62 119/56 L Pulse Oximetry 93 L 94 L Intake & Output 09/14/18 09/15/18 09/15/18 18:59 06:59 18:59 Intake Total 1640 / 1640 Output Total 1100 / 1100 Balance 1640 / 1640 -1100 / -1100 Weight 65.5 kg Intake: IV 1000 / 1000 LR 1000 mL Inj 1,000 ML @ 80 1000 / 1000 mls/hr IV.CONT .[id number] [facility] Rx# :[id number] Oral 640 / 640 Output: Urine Amount (Catheter) 1100 / 1100 Straight 1100 / 1100 Other: # Voids 0 Date of Last Bowel Movement 09/12/18 # Bowel Movements 0 Narrative: GENERAL: Well-developed, well-nourished, elderly female, in no apparent distress SKIN: Warm and dry. Left hip incision dressed dry and intact, trace edema HEAD: Atraumatic. Normocephalic. EYES: Pupils equal and round. No scleral icterus. No injection or drainage. ENT: No nasal bleeding or discharge. Mucous membranes pink and moist. NECK: Trachea midline. No JVD. CARDIOVASCULAR: Regular rate and rhythm, positive murmur RESPIRATORY: No accessory muscle use. Clear to auscultation. Breath sounds equal bilaterally. GASTROINTESTINAL: Abdomen obese, soft, non-tender, nondistended. Hepatic and splenic margins not palpable. MUSCULOSKELETAL: Extremities without clubbing, cyanosis. No obvious deformities. Left hip/lower leg with very limited range of motion, left hip trace edema. Moving all other 3 extremities NEUROLOGICAL: Awake and alert. No obvious cranial nerve deficits. Motor grossly within normal limits. Normal speech. PSYCHIATRIC: Anxious mood and affect; insight and judgment normal. - Urinary Catheter Management Straight Cath placed during this visit: yes, but has since been removed by the nurse Reason for continuing: Not indwelling catheter Insertion date: 09/14/18 Insertion time: 19:54 Removal date: 09/13/18 Removal time: 12:02 Results - Labs CBC & Chem 7: 09/15/18 04:47 09/15/18 04:47 Laboratory Results - last 24 hr 09/15/18 09/15/18 04:47 04:47 WBC 10.6 RBC 2.28 L Hgb 7.5 L Hct 21.8 L MCV 95.6 MCH 32.7 MCHC 34.2 RDW 12.8 Plt Count 171 D MPV 8.6 Neut % (Auto) 81.9 H Lymph % (Auto) 9.3 [place] % (Auto) 8.1 H Eos % (Auto) 0.5 Baso % (Auto) 0.2 Neut # (Auto) 8.7 H Lymph # (Auto) 1.0 [place] # (Auto) 0.9 Eos # (Auto) 0.1 Baso # (Auto) 0.0 WBC Differential . Differential Comment Auto diff final Sodium 133 L Potassium 4.7 Chloride 99 Carbon Dioxide 25.9 Anion Gap 8 BUN 28 H Creatinine 1.07 H Estimated GFR 49 L Random Glucose 118 H Calcium 8.5 - Procedures Postop right total hip arthroplasty using [place] prosthesis (direct anterior approach). Assessment and Plan - Assessment (1) Hypertension Code(s): I10 - Essential (primary) hypertension Status: Acute (2) Hyperlipidemia Code(s): E78.5 - Hyperlipidemia, unspecified Status: Acute (3) DDD (degenerative disc disease), lumbar Code(s): M51.36 - Other intervertebral disc degeneration, lumbar region Status : Acute (4) Cauda equina syndrome with neurogenic bladder Code(s): G83.4 - Cauda equina syndrome Status: Acute (5) Status post total replacement of left hip Code(s): Z96.642 - Presence of left artificial hip joint Status: Acute (6) Primary osteoarthritis of left hip Code(s): M16.12 - Unilateral primary osteoarthritis, left hip Status: Acute - Plan This is an 82yo female with a PMHX of 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 Rothman earlier today. Hospitalist services have been consulted to assist with ongoing medical management. DJD left hip, tried and failed attempts at conservative management, s/p elective left total hip arthroplasty -Management per Ortho service -maintain hip precautions -monitor H/H postoperatively -PT eval/tx -pain management with bowel regimen -monitor wound for proper healing DDD lumbar spine Cauda equina syndrome: self-catheterization Chronic -medical staff services coordinator consult assist with placement arrangements for self- catheterization upon discharge Hypertension BP in the low side, likely due to sedative medications/anesthesia -IV fluid half-normal saline times 2 L -continue on Lopressor, -Hold Cozaar Cozaar, Norvasc and Aldactone for low blood pressure -continue to monitor BP and adjust treatment accordingly Dyslipidemia -continue patient on statin therapy Neuropathy. Chronic -continue patient on home Gabapentin 300mg TID DDD lumbar spine Cauda equina syndrome, chronic Self catheter at home -continue with self catheterization Hx of carotid stenosis, mesenteric artery stenosis and bilateral iliac vein thrombosis -patient resumed on home medication Plavix per Ortho service DVT prophylaxis: SCD/GIOVANI hose -Plavix per Orthopedic service Code Status: full code Discussed Condition With: patient and nurse
[2018-09-15] MEDS: Calcium Carbonate 500 MG Tablet PO SCH ×2 (08:47→20:18)
[2018-09-15] MEDS: Senna/Docusate Sodium 8.6/50 MG Tablet PO SCH ×2 (08:48→20:18)
[2018-09-15] MEDS: Gabapentin 300 MG Capsule PO SCH ×3 (08:48→17:35)
[2018-09-15] MEDS: Magnesium Oxide 400 MG Tablet PO SCH (08:50)
[2018-09-16] MEDS: Metoprolol Tartrate 25 MG Tablet PO SCH ×2 (05:14→09:10)
[2018-09-16] MEDS: Sodium Chloride 0.45 % Inj 1,000 ML IV.CONT SCH ×2 (05:14→11:03)
[2018-09-16 06:56] LABS: Baso % (Auto) 0.2 % (0.0-2.0); Eos # (Auto) 0.1 th/mm3 (0.0-0.4); Eos % (Auto) 0.6 % (0.0-4.0); Hematocrit 23.6 % (35.0-46.0); Hemoglobin 8.2 gm/dL (11.6-15.3); Lymph # (Auto) 1.4 th/mm3 (1.0-4.8); Lymph % (Auto) 13.6 % (9.0-44.0); Mean Corpuscular HGB Conc 34.6 % (32.0-36.0); Mean Corpuscular Hemoglobin 32.8 pg (27.0-34.0); Mean Corpuscular Volume 94.8 fL (80.0-100.0); Mean Platelet Volume 8.7 fL (7.0-11.0); Mono # (Auto) 0.9 th/mm3 (0.0-0.9); Mono % (Auto) 9.1 % (0.0-8.0); Neut # (Auto) 7.7 th/mm3 (1.8-7.7); Neut % (Auto) 76.5 % (16.0-70.0); Platelet Count 203 th/mm3 (150-450); Red Blood Count 2.49 mil/mm3 (4.00-5.30); Red Cell Distribution Width 12.9 % (11.6-17.2); White Blood Count 10.1 th/mm3 (4.0-11.0)
[2018-09-16 07:20] LABS: Calcium 8.9 mg/dL (8.5-10.1); Potassium 4.7 meq/L (3.5-5.1)
--- NOTE | 2018-09-16 07:28 | P.PNOP ---
Subjective Interval history: Postop day #3 She still has pain when she tries to move her hip. Otherwise, she is doing relatively well. Physical therapy reports that the ambulation distance was 3 feet. Physical Exam Vital signs: Vital Signs 09/15/18 08:00 09/15/18 12:00 09/15/18 12:27 Temperature 98.4 F 99.5 F Pulse Rate 90 76 Respiratory Rate 18 17 18 Blood Pressure 130/61 107/52 L Pulse Oximetry 93 L 95 09/15/18 16:00 09/15/18 17:02 09/15/18 20:00 Temperature 98.9 F 97.7 F Pulse Rate 90 100 H Respiratory Rate 18 18 17 Blood Pressure 128/61 124/58 L Pulse Oximetry 95 97 09/16/18 00:00 09/16/18 04:00 Temperature 99.9 F H 98.0 F Pulse Rate 98 H 98 H Respiratory Rate 16 16 Blood Pressure 115/56 L 125/60 Pulse Oximetry 94 L 94 L Intake & Output 09/15/18 09/16/18 09/16/18 18:59 06:59 18:59 Intake Total 1040 / 1040 200 / 200 Output Total 850 / 850 650 / 650 Balance 190 / 190 -450 / -450 Weight 69.3 kg Intake: Oral 1040 / 1040 200 / 200 Output: Urine Amount (Catheter) 850 / 850 650 / 650 Straight 850 / 850 650 / 650 Other: Date of Last Bowel Movement 09/13/18 # Bowel Movements 0 Narrative: She is resting comfortably, supine in bed. The dressing is dry and intact. Her thigh is less tender today than yesterday. Her neurovascular status is intact. - Urinary Catheter Management Straight Cath placed during this visit: yes, but has since been removed by the nurse Reason for continuing: Not indwelling catheter Insertion date: 09/16/18 Insertion time: 05:10 Removal date: 09/16/18 Removal time: 05:21 Results - Labs CBC & Chem 7: 09/16/18 05:34 09/16/18 05:34 Laboratory Results - last 24 hr 09/16/18 09/16/18 05:34 05:34 WBC 10.1 RBC 2.49 L Hgb 8.2 L Hct 23.6 L MCV 94.8 MCH 32.8 MCHC 34.6 RDW 12.9 Plt Count 203 MPV 8.7 Neut % (Auto) 76.5 H Lymph % (Auto) 13.6 [place] % (Auto) 9.1 H Eos % (Auto) 0.6 Baso % (Auto) 0.2 Neut # (Auto) 7.7 Lymph # (Auto) 1.4 [place] # (Auto) 0.9 Eos # (Auto) 0.1 Baso # (Auto) 0.0 WBC Differential . Differential Comment Auto diff final Sodium 134 L Potassium 4.7 Chloride 100 Carbon Dioxide 24.0 Anion Gap 10 BUN 26 H Creatinine 1.02 H Estimated GFR 52 L Random Glucose 107 H Calcium 8.9 - Procedures Postop right total hip arthroplasty using [place] prosthesis (direct anterior approach). Assessment and Plan - Ortho Post Op Day # 3 - Problem List (1) Status post total replacement of left hip Code(s): Z96.642 - Presence of left artificial hip joint Status: Acute - Assessment and Plan Condition: Good. Orthopedically stable. DVT prophylaxis: TEDs, resumption of Plavix, sequentials. Discharge plans: She has decided to go to a fpc facility for rehabilitation and prefers either [facility] or [facility]. An appointment was scheduled through the office. Prescriptions: [place] 7.5/325; Patient is having significant pain caused by a total hip arthroplasty which will last more than 3 days. Trial of Tylenol has not helped. I believe that it is medically necessary to treat patients pain because it is affecting patients ability to participate in postoperative rehabilitation and perform activities of daily living in a comfortable and efficient manner.
--- NOTE | 2018-09-16 07:56 | P.DS ---
Date of admission: 09/13/18 05:22 Primary care physician: KELLIE Orona Attending physician on discharge: Fransisco Rothman Anticipated date of discharge: 09/16/18 Brief History from admission: This 83-year-old woman was admitted for an elective total hip arthroplasty on the left. She has had long-term pain in her left hip nonresponsive to conservative measures as detailed in the history and physical examination. Her ambulation tolerance was significantly limited. She had pain on motion and activities of daily living. Physical findings showed limited range of motion in the left hip with tenderness on motion. She had an antalgic gait. There was a leg length inequality with the right leg being significantly shorter than the left due to a prior periprosthetic fracture after a total hip arthroplasty by another physician on the right side. X-rays showed severe osteoarthritis in the left hip with loss of articular cartilage to [id number], subchondral sclerosis and osteophytes. DS: Diagnosis - Discharge Diagnosis (1) Status post total replacement of left hip Status: Acute Diagnosis: Principal (2) Cauda equina syndrome with neurogenic bladder Status: Chronic Diagnosis: Secondary (3) DDD (degenerative disc disease), lumbar Status: Chronic Diagnosis: Secondary (4) Hyperlipidemia Status: Chronic Diagnosis: Secondary (5) Hypertension Status: Chronic Diagnosis: Principal (6) Primary osteoarthritis of left hip Status: Chronic DS: Medications - Discharge Medications Prescriptions: hydrocodone-acetaminophen 1 tab PO Q4H PRN 7 Days #42 tab PRN Reason: Pain DS: Summary Hospital Course: The patient was admitted as noted above. The above noted operative procedure was carried out that day. Preoperatively prophylactic antibiotics were administered Ancef according to protocol. These were continued postoperatively. The patient also received tranexamic acid to help with hemostasis according to protocol. In the postanesthesia care unit mechanical methods of DVT prophylaxis in the form of GIOVANI stockings and sequentials were initiated. Physical therapy was initiated on the day of surgery. On postoperative day #1 physical therapy continued. DVT prophylaxis with resumption of Plavix was initiated at this time. The patient continued physical therapy throughout the hospitalization. The distance walked and range of motion improved throughout the hospitalization. The patient was discharged on postoperative day 3 with the disposition being to a detention facility for physical therapy and rehabilitation. An appointment for follow-up was made prior to admission. - Time Spent with Patient Total time spent providing and/or coordinating discharge services: Less than 30 minutes - Quality: VTE Deep Vein Thrombosis/Pulmonary Embolism Present on Admission: No Exam Vital signs: Vital Signs 09/15/18 08:00 09/15/18 12:00 09/15/18 12:27 Temperature 98.4 F 99.5 F Pulse Rate 90 76 Respiratory Rate 18 17 18 Blood Pressure 130/61 107/52 L Pulse Oximetry 93 L 95 09/15/18 16:00 09/15/18 17:02 09/15/18 20:00 Temperature 98.9 F 97.7 F Pulse Rate 90 100 H Respiratory Rate 18 18 17 Blood Pressure 128/61 124/58 L Pulse Oximetry 95 97 09/16/18 00:00 09/16/18 04:00 Temperature 99.9 F H 98.0 F Pulse Rate 98 H 98 H Respiratory Rate 16 16 Blood Pressure 115/56 L 125/60 Pulse Oximetry 94 L 94 L Intake & Output 09/15/18 09/16/18 09/16/18 18:59 06:59 18:59 Intake Total 1040 / 1040 200 / 200 Output Total 850 / 850 650 / 650 Balance 190 / 190 -450 / -450 Weight 69.3 kg Intake: Oral 1040 / 1040 200 / 200 Output: Urine Amount (Catheter) 850 / 850 650 / 650 Straight 850 / 850 650 / 650 Other: Date of Last Bowel Movement 09/13/18 # Bowel Movements 0 Narrative: She is resting comfortably, supine in bed. The neurovascular status is intact. The dressing is dry and intact. There is slight swelling in the thigh but no extreme tension. Results Procedures completed during hospitalization: Postop right total hip arthroplasty using Vinod prosthesis (direct anterior approach). Completed studies during hospitalization: Hip X-Ray 09/13/18 00:00 CONCLUSION: Orthopedic hardware in excellent position. Labs on day of discharge: Labs from last 24 hours 09/16/18 09/16/18 05:34 05:34 WBC 10.1 RBC 2.49 L Hgb 8.2 L Hct 23.6 L MCV 94.8 MCH 32.8 MCHC 34.6 RDW 12.9 Plt Count 203 MPV 8.7 Neut % (Auto) 76.5 H Lymph % (Auto) 13.6 [place] % (Auto) 9.1 H Eos % (Auto) 0.6 Baso % (Auto) 0.2 Neut # (Auto) 7.7 Lymph # (Auto) 1.4 [place] # (Auto) 0.9 Eos # (Auto) 0.1 Baso # (Auto) 0.0 WBC Differential . Differential Comment Auto diff final Sodium 134 L Potassium 4.7 Chloride 100 Carbon Dioxide 24.0 Anion Gap 10 BUN 26 H Creatinine 1.02 H Estimated GFR 52 L Random Glucose 107 H Calcium 8.9 - Impressions ITS Impressions Hip X-Ray 09/13/18 00:00 CONCLUSION: Orthopedic hardware in excellent position. Discharge Plan - Discharge Disposition Patient Disposition: Discharge to SNF - Discharge Condition Condition: Stable - Discharge Order Discharge Orders: Discharge Order (Routine); Ordered 09/16/18 Ordered By: Fransisco Rothman - Discharge Details Anticipated Discharge Date: 09/16/18 - Physicians Team Primary Care Provider: Michelle Lopez Attending Provider: Fransisco Rothman Other Providers: [facility] ; [facility] ; Marina Arroyo DO - Rxs /Orders / Referrals /Forms Prescriptions: New hydrocodone-acetaminophen 7.5-325 mg Tablet 1 tab PO Q4H PRN (Reason: Pain) 7 Days Qty: 42 RF: 0 Continue amlodipine [Norvasc] 10 mg Tablet 10 mg PO HS calcium carbonate [Calcium 500] 500 mg calcium (1,250 mg) Tablet 500 mg PO BID cholecalciferol (vitamin D3) [Vitamin D3] 2,000 unit Tablet 2,000 unit PO DAILY clopidogrel [Plavix] 75 mg Tablet 75 mg PO DAILY docusate sodium [Stool Softener] 50 mg Capsule 50 mg PO HS fexofenadine [Dena Allergy] 180 mg Tablet 180 mg PO Q24H PRN (Reason: ALLERGIES) gabapentin [Neurontin] 300 mg Capsule 1 cap PO TID magnesium 250 mg Tablet 250 mg PO DAILY metoprolol tartrate 25 mg Tablet 25 mg PO DAILY metoprolol tartrate 50 mg Tablet 50 mg PO HS olmesartan [Benicar] 20 mg Tablet 20 mg PO BID omega 4-esc-iry-fish oil [Fish Oil] 1,000 mg (120 mg-180 mg) Capsule 2 cap PO DAILY rosuvastatin [Crestor] 10 mg Tablet 10 mg PO DAILY spironolactone 25 mg Tablet 25 mg PO DAILY Discontinued hydrocodone-acetaminophen 5-325 mg Tablet 1 tab PO HS PRN (Reason: Pain) Referrals: Michelle Lopez PA [Primary Care Provider] - See Instructions Fransisco Rothman MD [Physician] - See Instructions - Discharge Instructions Patient Printed Instructions: Narcotic Pain Management (DC), Fall Prevention ( DC), Total Hip Replacement (DC), Deep Vein Thrombosis Prevention (DC) Additional Instructions: TAKE MEDS PRESCRIBED ATTEND ALL FOLLOW UP APPOINTMENTS OR CALL OFFICE TO SCHEDULE - Post Discharge Care Plan Care Plan Goals: Discharge Care Plan Goals for Total Hip Replacement You had a hip replacement surgery. This means your natural hip was replaced with an artificial joint (prosthesis). You may be recovering at home or in a rehabilitation facility. Either way, you must take care of your new hip. Here are some goals to help you heal well. Directions to Meet your Goals: 1. Activity & Exercises: * Take pain medicine as directed by your doctor. * Dont drive until your doctor says its OK. And never drive while taking opioid pain medicine. * Wear the support stockings you were given in the hospital as directed by your surgeon. * Dont sit for more than 30 to 45 minutes at one time. * Dont lean forward while sitting. * Dont cross your legs. * Keep your feet flat on the floor. Dont turn your foot or leg inward. This stresses your hip joint. * Use an elevated toilet seat for 6 weeks after surgery. * Nap if you are tired, but dont stay in bed all day. * Sit on a firm cushion when you ride in a car and avoid sitting too low. Try not to bend your hip too much when getting in and out of the car. 2. Prevent Falls/Injury: * Follow your doctors orders regarding how much weight to put on the affected leg. * Dont bend at the hip when you bend over. Don't bend at the waist to put on socks and shoes. And avoid picking up items from the floor. * Use a cane, crutches, a walker, or handrails until your balance, flexibility, and strength improve. And remember to ask for help from others when you need it. * Free up your hands so that you can use them to keep balance. Use a darlene pack , apron, or pockets to carry things. * Arrange your household to keep the items you need handy. Keep everything else out of the way. * Remove items that may cause you to fall, such as throw rugs and electrical cords. * Use nonslip bath mats, grab bars, an elevated toilet seat, and a shower chair in your bathroom * Sit on a shower stool or chair when you shower to keep from falling. 3. Precautions: * Prevent infection. Any infection will need to be treated immediately. Call your doctor right away if you think you might have an infection. * Tell your dentist that you have an artificial joint and take antibiotics as prescribed before any dental work. * Tell all your healthcare providers about your artificial joint before any medical procedure. * Maintain a healthy weight. Get help to lose any extra pounds. Added body weight puts stress on the joints. 4. Incision Care: * Prevent infection by washing your hands often. If an infection occurs, it will need to be treated right away. * Call your doctor right away if you think you may have an infection. Symptoms include a fever or an incision that leaks white, green, or yellow fluid. * Don't soak your incision in water until your doctor says its OK. This means no hot tubs, bathtubs, or swimming pools. * Follow your doctor's instructions for changing the dressing. * Dont rub the incision, or apply creams or lotions to it. * If you notice any redness or drainage around the bandage site, contact your surgeon's office immediately. 5. Follow-Up: Do Not miss your follow-up appointment. Keep up with all your appointments and yearly check ups When to call your doctor: Call your doctor right away if you have: Hip pain gets worse Pain or swelling in your calf or leg not related to your incision Tenderness or redness in your calf Fever of 100.4F (38C) or higher, or as directed by your healthcare provider Shaking chills Swelling or redness at the incision site gets worse Fluid draining from the incision Call 911: Call 911 right away if you have: Chest pain Shortness of breath Any pain or tenderness in your calf
[2018-09-16] MEDS: Gabapentin 300 MG Capsule PO SCH (09:10)
[2018-09-16] MEDS: Calcium Carbonate 500 MG Tablet PO SCH (09:10)
[2018-09-16] MEDS: Senna/Docusate Sodium 8.6/50 MG Tablet PO SCH (09:10)
[2018-09-16] MEDS: Magnesium Oxide 400 MG Tablet PO SCH (09:11)
[2018-09-16] MEDS ORDERED: Gabapentin 300 MG Capsule PO SCH (21:00)
== END 2018-09-16 12:47 ==
LOC: HSDI 05:22 → N06 12:25
PROVIDERS: ADMIT Orthopaedic Surgery; ATTEND Orthopaedic Surgery

== ENCOUNTER 2018-09-17 02:50 | Inpatient (IN) ==
[2018-09-17 03:21] LABS: ABG Base Excess -1.9 mmol/L (-2-2); ABG PCO2 34 mmHg (38-42); ABG PO2 132 mmHg (61-120)
--- NOTE | 2018-09-17 03:21 | ED ---
HPI General Chief Complaint: Respiratory Symptoms Stated Complaint: Respiratory Time Seen by Provider: 09/17/18 02:56 Source: patient, EMS and old records reviewed Mode of arrival: EMS Limitations: no limitations History of Present Illness The patient is an 83-year-old female status post elective left total hip arthroplasty 2 days ago that was discharged to rehab facility just a few hours hours prior to coming back to the ED. Patient stated that she was discharged and since she was at the facility she has been complaining of shortness of breath for several hours. Paramedics report that on arrival her O2 saturation was in the 70s and then placed on top with improvement only up to the upper 80s. She was also given 1 sublingual nitro with minimal improvement of her symptoms. She denies any fever or chills. No cough. Marked improvement of her dyspnea after she was placed on BiPAP on arrival. MD Complaint: Reports shortness of breath Onset (ago): hour(s) (7) Context: Reports other (Recent surgery) Severity: severe Consistency/Duration: constant Relieving factors: other (CPAP sublingual nitro) Exacerbating factors: lying flat and exertion Known history of: Reports congestive heart failure; Denies COPD, asthma and DVT Associated symptoms: Reports chest pain and orthopnea; Denies pain with inspiration, fever, cough, wheezing, sputum production and lower extremity pain Treatment prior to arrival: Reports NIPPV, nitroglycerin and other Related Data Home oxygen amount: none Home Medications Medication Instructions Recorded Confirmed amlodipine [Norvasc] 10 mg PO HS 09/02/18 09/17/18 calcium carbonate [Calcium 500] 500 mg PO BID 09/02/18 09/17/18 cholecalciferol (vitamin D3) 2,000 unit PO DAILY 09/02/18 09/17/18 [Vitamin D3] clopidogrel [Plavix] 75 mg PO DAILY 09/02/18 09/17/18 docusate sodium [Stool Softener] 50 mg PO HS 09/02/18 09/17/18 fexofenadine [Dena Allergy] 180 mg PO Q24H PRN 09/02/18 09/17/18 gabapentin [Neurontin] 1 cap PO TID 09/02/18 09/17/18 magnesium 250 mg PO DAILY 09/02/18 09/17/18 metoprolol tartrate 25 mg PO DAILY 09/02/18 09/17/18 metoprolol tartrate 50 mg PO HS 09/02/18 09/17/18 olmesartan [Benicar] 20 mg PO BID 09/02/18 09/17/18 omega 7-znn-yvi-fish oil [Fish Oil] 2 cap PO DAILY 09/02/18 09/17/18 rosuvastatin [Crestor] 10 mg PO DAILY 09/02/18 09/17/18 spironolactone 25 mg PO DAILY 09/02/18 09/17/18 bisacodyl [Dulcolax (bisacodyl)] 10 mg OR Q8H PRN 09/17/18 09/17/18 magnesium citrate [Citroma] 296 ml PO Q8H PRN 09/17/18 09/17/18 Previous Rx's Medication Instructions Recorded hydrocodone-acetaminophen 1 tab PO Q4H PRN 7 Days #42 tab 09/14/18 Allergies Allergy/AdvReac Type Severity Reaction Status Date / Time ciprofloxacin Allergy Severe rash Verified 09/13/18 06:05 diatrizoate meglumine Allergy Severe hives Verified 09/13/18 06:05 gadobenic acid Allergy Severe hives Verified 09/13/18 06:05 gadodiamide Allergy Severe hives Verified 09/13/18 06:05 gadoteridol Allergy Severe hives Verified 09/13/18 06:05 hydrochlorothiazide Allergy Severe Itching, Verified 09/13/18 06:05 Generalized iodixanol Allergy Severe hives Verified 09/13/18 06:05 iohexol Allergy Severe hives Verified 09/13/18 06:05 milk [Dairy] Allergy Severe Swelling Verified 09/13/18 06:05 of Lip/Tongue/Throat penicillin G Allergy Severe rash Verified 09/13/18 06:05 Sulfa (Sulfonamide Allergy Severe rash Verified 09/13/18 06:05 Antibiotics) epinephrine AdvReac Severe elevated Verified 09/13/18 06:05 HEART RATE Review of Systems ROS: all other systems reviewed are negative [facility] Medical History Medical History Able to perform intermittent urethral self-catheterization (Acute) Cauda equina syndrome (Acute) Dental bridge present (Acute) High cholesterol (Acute) History of anesthesia reaction (Acute) History of iliac vein thrombosis (Acute) Hx of hysterectomy (Acute) Hypertension (Acute) Mesenteric artery stenosis (Acute) Neuropathy (Acute) Pain in right hip (Acute) Self-catheterizes urinary bladder (Acute) Wears glasses (Acute) Wears partial dentures (Acute) Surgical History Surgical History History of bilateral carotid endarterectomy (Acute) History of bunionectomy of both great toes (Acute) History of total right hip arthroplasty (Acute) Hx of appendectomy (Acute) Hx of cataract removal with insertion of prosthetic lens (Acute) Hx of detached retina repair (Acute) Hx of dilation and curettage (Acute) Hx of lumbar discectomy (Acute) Hx of vein stripping (Acute) Family History Family History Father Tuberculosis Mother COPD (chronic obstructive pulmonary disease) Social History Social History Substance History: No History of Abuse Second Hand Smoke Exposure: No Smoking Status: Former smoker How Often Do You Have a Drink Containing Alcohol: Never Recent Travel in [facility] within the Last 8 Weeks: No Recent Out of Country Travel within the Last 8 Weeks: No Immunization History Tetanus Immunization: >5 Years Exam Narrative Exam Narrative: GENERAL: Alert and oriented in moderate respiratory distress. Well-nourished. SKIN: Focused skin assessment warm/dry. Pale poor turgor. Left hip surgical incision clean dry and intact. HEAD: Atraumatic. Normocephalic. EYES: Pupils equal and round. No scleral icterus. No injection or drainage. ENT: No nasal bleeding or discharge. Mucous membranes pink and moist. NECK: Trachea midline. No JVD. CARDIOVASCULAR: Tachycardia with regular rhythm. No murmur appreciated. RESPIRATORY: No accessory muscle use. Tachypnea clear to auscultation. Breath sounds equal bilaterally. GASTROINTESTINAL: Abdomen soft, non-tender, nondistended. Hepatic and splenic margins not palpable. MUSCULOSKELETAL: No obvious deformities. No clubbing. No cyanosis. No edema. NEUROLOGICAL: Awake and alert. No obvious cranial nerve deficits. Motor grossly within normal limits. Normal speech. PSYCHIATRIC: Appropriate mood and affect; insight and judgment normal. Course Hospital Course: Patient was also placed on noninvasive mechanical ventilation with marked improvement of her respiratory distress. Reevaluation(s) Reevaluation #2: Patient has abnormal EKG without signs of STEMI at this time and a troponin of 0.96 and no complaint of chest pain at this time. We will contact interventional cardiology for recommendations. Time: 04:19 Initial Documented Vital Signs Temperature 99.3 F 09/17/18 02:56 Pulse Rate 106 H 09/17/18 02:56 Respiratory Rate 25 H 09/17/18 02:56 Blood Pressure 176/75 H 09/17/18 02:56 Pulse Oximetry 100 09/17/18 02:56 Last Documented Vital Signs Temperature 99.3 F 09/17/18 02:56 Pulse Rate 85 09/17/18 05:32 Respiratory Rate 20 09/17/18 05:32 Blood Pressure 130/60 09/17/18 05:32 Pulse Oximetry 94 L 09/17/18 05:50 Critical Care Time Critical Care Time: Yes Total Critical Care Time: 30 Attestation: Aggregate critical care time was 30 minutes. Time to perform other separately billable procedures was not included in the critical care time. My time did not include minutes spent treating any other patients simultaneously or on activities that did not directly contribute to the patient's treatment. The services I provided to this patient were to treat and/or prevent clinically significant deterioration that could result in: I provided critical care services requiring my management, as noted below: Chart data review, documentation time, medication orders and management, vital sign assessments/reviewing monitor data, ordering and reviewing lab tests, ordering and interpreting/reviewing x-rays and diagnostic studies, care of the patient and discussion of the patient with the admitting physicians. Medical Decision Making MDM Narrative Medical decision making narrative: Patient respiratory distress on arrival improved with BiPAP. She did meet Sirs criteria with tachycardia and tachypnea for which she was started on cefepime after we reviewed the chest x-ray was suggestive of pneumonia. Admitting team added aztreonam and azithromycin. Patient had an elevated troponin of 0.[address] elevation in my findings on EKG. She had no chest pain at all times. Interventional cardiology was consulted and we are awaiting further recommendations in the meantime we started the patient on heparin drip after she was given a bolus. Cultures were obtained. She was placed on BiPAP which she remained. Hemodynamically stable. No chest pain. Shortness of breath improved. The leukocytosis of 15.6 without left shift and no lactic acidosis. Blood gases did not reveal hypoxemia. Elevated proBNP at 618. Due to the fact the patient had recent hip surgery ordered a VQ scan since she has iodine allergy. Medical Screen Exam Complete: Yes Emergency Medical Condition: Yes Lab Data Lab results reviewed: Yes I reviewed the patient's lab results. Result diagrams: 09/17/18 03:15 09/17/18 03:15 Lab Results 09/17/18 09/17/18 09/17/18 Range/Units 03:01 03:15 03:15 WBC 15.6 H D (4.0-11.0) th/mm3 RBC 2.92 L (4.00-5.30) mil/mm3 Hgb 9.3 L (11.6-15.3) gm/dL Hct 27.9 L (35.0-46.0) % MCV 95.4 (80.0-100.0) fL MCH 31.9 (27.0-34.0) pg MCHC 33.4 (32.0-36.0) % RDW 13.1 (11.6-17.2) % Plt Count 332 D (150-450) th/mm3 MPV 8.5 (7.0-11.0) fL Neut % (Auto) 73.0 H (16.0-70.0) % Lymph % (Auto) 16.4 (9.0-44.0) % [place] % (Auto) 9.9 H (0.0-8.0) % Eos % (Auto) 0.3 (0.0-4.0) % Baso % (Auto) 0.4 (0.0-2.0) % Neut # (Auto) 11.4 H (1.8-7.7) th/mm3 Lymph # (Auto) 2.6 (1.0-4.8) th/mm3 [place] # (Auto) 1.5 H (0.0-0.9) th/mm3 Eos # (Auto) 0.0 (0.0-0.4) th/mm3 Baso # (Auto) 0.1 (0.0-0.2) th/mm3 WBC Differential . Differential Comment Auto diff final PT (9.8-11.6) sec INR Ratio APTT (23.4-31.7) sec Puncture Site Right radial Patient Temperature 98.6 O2 Saturation 97 (90-100) % ABG pH 7.42 (7.380-7.420) ABG pCO2 34 L (38-42) mmHg ABG pO2 132 H (61-120) mmHg ABG HCO3 22 (22-26) mmol/L ABG O2 Content 12.5 (12.0-20.0) Vol % ABG Base Excess -1.9 (-2-2) mmol/L ABG Methemoglobin 0.5 (0-2) % Johnnie Test Present Hemoglobin 9.0 L (12.0-16.0) G/DL Carboxyhemoglobin 1.5 (0-4) % O2 Delivery Device Bipap Vent Setting [id number] Inspired O2 100 % Critical Value No Sodium 130 L (136-145) meq/L Potassium 4.9 (3.5-5.1) meq/L Chloride 95 L (98-107) meq/L Carbon Dioxide 24.3 (21.0-32.0) meq/L Anion Gap 11 (5-15) meq/L BUN 28 H (7-18) mg/dL Creatinine 1.08 H (0.50-1.00) mg/dL Estimated GFR 48 L (>89) mL/min Random Glucose 158 H (74-106) mg/dL Lactic Acid (0.4-2.0) mmol/L Calcium 9.1 (8.5-10.1) mg/dL Total Bilirubin 0.7 (0.2-1.0) mg/dL AST 43 H (15-37) U/L ALT 22 (10-53) U/L Alkaline Phosphatase 62 (45-117) U/L Troponin I 0.96 H* (0.02-0.05) ng/mL B-Natriuretic Peptide (0-100) pg/mL Total Protein 6.8 (6.4-8.2) g/dL Albumin 2.4 L (3.4-5.0) g/dL 09/17/18 09/17/18 09/17/18 Range/Units 03:15 03:15 04:56 WBC (4.0-11.0) th/mm3 RBC (4.00-5.30) mil/mm3 Hgb (11.6-15.3) gm/dL Hct (35.0-46.0) % MCV (80.0-100.0) fL MCH (27.0-34.0) pg MCHC (32.0-36.0) % RDW (11.6-17.2) % Plt Count (150-450) th/mm3 MPV (7.0-11.0) fL Neut % (Auto) (16.0-70.0) % Lymph % (Auto) (9.0-44.0) % [place] % (Auto) (0.0-8.0) % Eos % (Auto) (0.0-4.0) % Baso % (Auto) (0.0-2.0) % Neut # (Auto) (1.8-7.7) th/mm3 Lymph # (Auto) (1.0-4.8) th/mm3 [place] # (Auto) (0.0-0.9) th/mm3 Eos # (Auto) (0.0-0.4) th/mm3 Baso # (Auto) (0.0-0.2) th/mm3 WBC Differential Differential Comment PT 10.8 (9.8-11.6) sec INR 1.1 Ratio APTT 30.7 (23.4-31.7) sec Puncture Site Patient Temperature O2 Saturation (90-100) % ABG pH (7.380-7.420) ABG pCO2 (38-42) mmHg ABG pO2 (61-120) mmHg ABG HCO3 (22-26) mmol/L ABG O2 Content (12.0-20.0) Vol % ABG Base Excess (-2-2) mmol/L ABG Methemoglobin (0-2) % Johnnie Test Hemoglobin (12.0-16.0) G/DL Carboxyhemoglobin (0-4) % O2 Delivery Device Vent Setting Inspired O2 % Critical Value Sodium (136-145) meq/L Potassium (3.5-5.1) meq/L Chloride (98-107) meq/L Carbon Dioxide (21.0-32.0) meq/L Anion Gap (5-15) meq/L BUN (7-18) mg/dL Creatinine (0.50-1.00) mg/dL Estimated GFR (>89) mL/min Random Glucose (74-106) mg/dL Lactic Acid 1.7 (0.4-2.0) mmol/L Calcium (8.5-10.1) mg/dL Total Bilirubin (0.2-1.0) mg/dL AST (15-37) U/L ALT (10-53) U/L Alkaline Phosphatase (45-117) U/L Troponin I (0.02-0.05) ng/mL B-Natriuretic Peptide 618 H (0-100) pg/mL Total Protein (6.4-8.2) g/dL Albumin (3.4-5.0) g/dL Imaging Data Radiologist's impression: Chest X-Ray 09/17/18 02:56 CONCLUSION: Bilateral lower lobe atelectasis versus pneumonia. Small left effusion ECG Data EKG Prior to Arrival: No Attestation: I personally reviewed and interpreted this ECG as follows: Prior ECG tracings: available for review Interpretation: Sinus tachycardia. Intraventricular conduction delay with QTC of 386 and OR interval 194. Nonspecific ST-T wave abnormalities. No ST elevation NC noted Discharge Plan Discharge Disposition Patient Disposition: 30 Still Patient Discharge Condition Condition: Serious Discharge Details Diagnosis: NSTEMI (non-ST elevated myocardial infarction), Status post total replacement of left hip, Hypertension, PNA (pneumonia) Physicians Team ED Provider: Ciaran Camilo Primary Care Provider: Selvin Ennis Attending Provider: Andrea Miles Other Providers: Jeovanny Louis Discharge Interventions Interventions: Vital Signs Last Done: 09/17/18 03:51 Status ED Status: Admitted Patient
[2018-09-17 03:34] LABS: Baso # (Auto) 0.1 th/mm3 (0.0-0.2); Baso % (Auto) 0.4 % (0.0-2.0); Eos % (Auto) 0.3 % (0.0-4.0); Hematocrit 27.9 % (35.0-46.0); Hemoglobin 9.3 gm/dL (11.6-15.3); Lymph # (Auto) 2.6 th/mm3 (1.0-4.8); Lymph % (Auto) 16.4 % (9.0-44.0); Mean Corpuscular HGB Conc 33.4 % (32.0-36.0); Mean Corpuscular Hemoglobin 31.9 pg (27.0-34.0); Mean Corpuscular Volume 95.4 fL (80.0-100.0); Mean Platelet Volume 8.5 fL (7.0-11.0); Mono # (Auto) 1.5 th/mm3 (0.0-0.9); Mono % (Auto) 9.9 % (0.0-8.0); Neut # (Auto) 11.4 th/mm3 (1.8-7.7); Platelet Count 332 th/mm3 (150-450); Red Blood Count 2.92 mil/mm3 (4.00-5.30); Red Cell Distribution Width 13.1 % (11.6-17.2); White Blood Count 15.6 th/mm3 (4.0-11.0)
--- NOTE | 2018-09-17 03:41 | XR ---
EXAM DATE: 09/17/2018 3:21 AM EDT AGE/SEX: 83 years / Female INDICATIONS: Hypoxia. CLINICAL DATA: This is the patient's initial encounter. Patient reports that signs and symptoms have been present for 1 day and indicates a pain score of 0/10. MEDICAL/SURGICAL HISTORY: None. . Left hip. COMPARISON: No prior exams available for comparison. FINDINGS: The cardiac silhouette is normal in transverse diameter. There is bilateral lower lobe atelectasis ve rsus pneumonia. A small left sided effusion is present. There is prominence of the aortic knob is wit h calcification characteristic of atherosclerotic vascular disease. CONCLUSION: Bilateral lower lobe atelectasis versus pneumonia. Small left effusion Electronically signed by: Kamari Arriola MD 09/17/2018 3:40 AM EDT
[2018-09-17 03:51] LABS: Alanine Aminotransferase 22 U/L (10-53); Albumin 2.4 g/dL (3.4-5.0); Anion Gap 11 meq/L (5-15); Aspartate Aminotransferase 43 U/L (15-37); Blood Urea Nitrogen 28 mg/dL (7-18); Calcium 9.1 mg/dL (8.5-10.1); Carbon Dioxide 24.3 meq/L (21.0-32.0); Chloride 95 meq/L (98-107); Glomerular Filtration Rate 48 mL/min (>89); Glucose,Random 158 mg/dL (74-106); Potassium 4.9 meq/L (3.5-5.1); Sodium 130 meq/L (136-145)
[2018-09-17 03:55] LABS: Alkaline Phosphatase 62 U/L (45-117); Total Protein 6.8 g/dL (6.4-8.2)
[2018-09-17 04:09] LABS: Troponin I 0.96 ng/mL (0.02-0.05)
[2018-09-17] MEDS ORDERED: Heparin 10,000 UNITS/10 ML Vial (for IV use) IV.PUSH STA (04:39)
[2018-09-17] MEDS ORDERED: Heparin Drip 25,000 UNIT/250 ML BAG IV.CONT PRN (04:39)
[2018-09-17] MEDS ORDERED: Bisacodyl 10 MG Supp RECTAL PRN (04:40)
--- NOTE | 2018-09-17 04:58 | P.HPIM ---
History of Present Illness Primary Care Physician: Selvin Ennis DO History of Present Illness: This is an 83-year-old female with a PMH of HTN, Hyperlipidemia, Cauda Equina Syndrome and h/o Left Hip Arthroplasty who was sent to the ER from Rehab for c/ o SOB. Per EMS, pt found to be hypoxic w/ O2 sat 74% and placed on CPAP, s/p Lasix 64mg IV by EMS, transitioned to BIPAP on arrival. Denies fever, chills, cough or chest pain. On arrival, BP 176/75, HR 106, O2 sat 100% on BiPAP, Temp 99.3. BC 15.6. ABG essentially unremarkable. Chemistry unremarkable. Troponin 0 0.96. BNP 618. CXR bilateral lower lobe atelectasis versus pneumonia, small left effusion. Remains chest pain free. Currently on Heparin gtt. - Diagnosis (1) NSTEMI (non-ST elevated myocardial infarction) (2) Hypoxia (3) PNA (pneumonia) (4) Status post total replacement of left hip Review of Systems PAST FAMILY HISTORY: Reviewed. No h/o DM or CAD All other systems reviewed negative except as stated in HPI [facility] - Medical History Medical History: Medical History (Last Reviewed 09/17/18 @ 03:20 by Ciaran Camilo DO) Able to perform intermittent urethral self-catheterization Cauda equina syndrome Dental bridge present High cholesterol History of anesthesia reaction History of iliac vein thrombosis Hx of hysterectomy Hypertension Mesenteric artery stenosis Neuropathy Pain in right hip Self-catheterizes urinary bladder Wears glasses Wears partial dentures - Surgical History Surgical History: Surgical History (Last Reviewed 09/17/18 @ 03:20 by Ciaran Camilo DO) History of bilateral carotid endarterectomy History of bunionectomy of both great toes History of total right hip arthroplasty Hx of appendectomy Hx of cataract removal with insertion of prosthetic lens Hx of detached retina repair Hx of dilation and curettage Hx of lumbar discectomy Hx of vein stripping - Family History Family History: Family History (Last Reviewed 09/17/18 @ 03:20 by Ciaran Camilo DO) Father Tuberculosis Mother COPD (chronic obstructive pulmonary disease) - Tobacco History Second Hand Smoke Exposure: No Smoking Status: Former smoker - Alcohol History How Often Do You Have a Drink Containing Alcohol: Never - Substance Use History Substance History: No History of Abuse - Travel History Recent Travel in the [place] Within the Last 8 Weeks: No Recent Travel Out of the Country Within the Last 8 Weeks: No - Immunization History Tetanus Immunization: >5 Years Medications and Allergies Active Medications: Active Medications Acetaminophen (Tylenol) 650 mg PO Q4H PRN PRN Reason: Temp > 100.4 Al Hydroxide/Mg Hydroxide (Milk Of Magnesia Liq) 30 ml PO Q12H PRN PRN Reason: Mild Constipation Albuterol (Duoneb Neb (Prn)) 1 ampul NEB Q4HR NEB PRN PRN Reason: SOB/WHEEZING Bisacodyl (Dulcolax Supp) 10 mg RECTAL DAILY PRN PRN Reason: SEVERE CONSITIPATION Heparin Sodium/Dextrose (Heparin/D5w 25,000 U/250 Ml) 25,000 unit in 250 mls @ 0 mls/hr IV.CONT TITRATE PRN; Protocol PRN Reason: Per Protocol Azithromycin 500 mg/ Sodium (Chloride) 250 mls @ 250 mls/hr IV.SIG Q24H MAUREEN Aztreonam 1,000 mg/ Sodium (Chloride) 100 mls @ 200 mls/hr IV.SIG Q8H MAUREEN Lactulose (Lactulose Liq) 30 ml PO DAILY PRN PRN Reason: SEVERE CONSITIPATION Morphine Sulfate (Morphine Inj) 2 mg IV.PUSH Q4H PRN PRN Reason: PAIN 6-10 Ondansetron HCl (Zofran Inj) 4 mg IV.PUSH Q6H PRN PRN Reason: NAUSEA OR VOMITING Senna/Docusate Sodium (Anh-Colace) 1 tab PO BID MAUREEN Sennosides (Senokot) 17.2 mg PO Q12H PRN PRN Reason: Moderate Constipation Allergies Allergy/AdvReac Type Severity Reaction Status Date / Time ciprofloxacin Allergy Severe rash Verified 09/13/18 06:05 diatrizoate meglumine Allergy Severe hives Verified 09/13/18 06:05 gadobenic acid Allergy Severe hives Verified 09/13/18 06:05 gadodiamide Allergy Severe hives Verified 09/13/18 06:05 gadoteridol Allergy Severe hives Verified 09/13/18 06:05 hydrochlorothiazide Allergy Severe Itching, Verified 09/13/18 06:05 Generalized iodixanol Allergy Severe hives Verified 09/13/18 06:05 iohexol Allergy Severe hives Verified 09/13/18 06:05 milk [Dairy] Allergy Severe Swelling Verified 09/13/18 06:05 of Lip/Tongue/Throat penicillin G Allergy Severe rash Verified 09/13/18 06:05 Sulfa (Sulfonamide Allergy Severe rash Verified 09/13/18 06:05 Antibiotics) epinephrine AdvReac Severe elevated Verified 09/13/18 06:05 HEART RATE Home Medications Medication Instructions Recorded Confirmed Type amlodipine [Norvasc] 10 mg PO HS 09/02/18 09/13/18 History calcium carbonate [Calcium 500] 500 mg PO BID 09/02/18 09/13/18 History cholecalciferol (vitamin D3) 2,000 unit PO DAILY 09/02/18 09/13/18 History [Vitamin D3] clopidogrel [Plavix] 75 mg PO DAILY 09/02/18 09/13/18 History docusate sodium [Stool Softener] 50 mg PO HS 09/02/18 09/13/18 History fexofenadine [Dena Allergy] 180 mg PO Q24H PRN 09/02/18 09/13/18 History gabapentin [Neurontin] 1 cap PO TID 09/02/18 09/13/18 History magnesium 250 mg PO DAILY 09/02/18 09/13/18 History metoprolol tartrate 25 mg PO DAILY 09/02/18 09/13/18 History metoprolol tartrate 50 mg PO HS 09/02/18 09/13/18 History olmesartan [Benicar] 20 mg PO BID 09/02/18 09/13/18 History omega 6-ybt-osd-fish oil [Fish Oil] 2 cap PO DAILY 09/02/18 09/13/18 History rosuvastatin [Crestor] 10 mg PO DAILY 09/02/18 09/13/18 History spironolactone 25 mg PO DAILY 09/02/18 09/13/18 History Exam Vital signs: Vital Signs 09/17/18 02:56 09/17/18 03:05 09/17/18 03:31 Temperature 99.3 F Pulse Rate 106 H Respiratory Rate 25 H Blood Pressure 176/75 H Pulse Oximetry 100 100 100 09/17/18 03:47 09/17/18 03:51 09/17/18 04:44 Temperature Pulse Rate 94 H 94 H Respiratory Rate 20 Blood Pressure 147/63 H Pulse Oximetry 97 95 Intake & Output 09/16/18 09/16/18 09/17/18 06:59 18:59 06:59 Weight 74.843 kg Narrative: PE: GENERAL: Pleasant elderly white female in no acute distress. Currently on BIPAP SKIN: Focused skin assessment warm and dry. HEENT: PERRLA, EOMI. No scleral icterus or conjunctival pallor. No lid lag or facial droop. CARDIOVASCULAR: Regular rate and rhythm. No obvious murmurs to auscultation. No chest tenderness to palpation. RESPIRATORY: No obvious rhonchi or wheezing. Clear to auscultation. Breath sounds equal bilaterally. GASTROINTESTINAL: Abdomen soft, non-tender, nondistended. BS normal. MUSCULOSKELETAL: Extremities without clubbing, cyanosis, or edema. No obvious deformities. NEUROLOGICAL: Awake, alert and oriented x4. No focal neurologic deficits. Moving both upper and lower extremities spontaneously. PSYCHIATRIC: Appropriate mood and affect. Insight and judgment normal. Results - Labs CBC & Chem 7: 09/17/18 03:15 09/17/18 03:15 Labs: Short CBC 09/17/18 Range/Units 03:15 WBC 15.6 H D (4.0-11.0) th/mm3 Hgb 9.3 L (11.6-15.3) gm/dL Hct 27.9 L (35.0-46.0) % Plt Count 332 D (150-450) th/mm3 BMP 09/17/18 03:15 Sodium 130 L Potassium 4.9 Chloride 95 L Carbon Dioxide 24.3 BUN 28 H Creatinine 1.08 H Calcium 9.1 Cardiac Enzymes 09/17/18 Range/Units 03:15 Troponin I 0.96 H* (0.02-0.05) ng/mL Liver Function 09/17/18 Range/Units 03:15 Total Bilirubin 0.7 (0.2-1.0) mg/dL AST 43 H (15-37) U/L ALT 22 (10-53) U/L Alkaline Phosphatase 62 (45-117) U/L Albumin 2.4 L (3.4-5.0) g/dL - Imaging Impressions Chest X-Ray 09/17/18 02:56 CONCLUSION: Bilateral lower lobe atelectasis versus pneumonia. Small left effusion Caprini VTE Risk Assessment Caprini VTE Risk Assessment: Moderate/High Risk (score >= 2) Caprini Risk Assessment Model: Point Value = 1 Point Value = 2 Point Value = 3 Point Value = 5 Age 41-60 Minor surgery BMI > 25 kg/m2 Swollen legs Varicose veins or History of unexplained or recurrent spontaneous Oral contraceptives or hormone replacement Sepsis (< 1 month) Serious lung disease, including pneumonia (< 1 month) Abnormal pulmonary function Acute myocardial infarction Congestive heart failure (< 1 month) History of inflammatory bowel disease Medical patient at bed rest Age 61-74 Arthroscopic surgery Major open surgery (> 45 min) Laparoscopic surgery (> 45 min) Malignancy Confined to bed (> 72 hours) Immobilizing plaster cast Central venous access Age >= 75 History of VTE Family history of VTE Factor V Leiden Prothrombin [id number] Lupus anticoagulant Anticardiolipin antibodies Elevated serum homocysteine Heparin-induced thrombocytopenia Other congenital or acquired thrombophilia Stroke (< 1 month) Elective arthroplasty Hip, pelvis, or leg fracture Acute spinal cord injury (< 1 month) Prophylaxis Regimen: Total Risk Factor Score Risk Level Prophylaxis Regimen 0-1 Low Early ambulation 2 Moderate Order ONE of the following: *Sequential Compression Device (SCD) *Heparin 5000 units SQ BID 3-4 Higher Order ONE of the following medications: *Heparin 5000 units SQ TID *Enoxaparin/Lovenox 40 mg SQ daily (WT < 150 kg, CrCl > 30 mL/min) *Enoxaparin/Lovenox 30 mg SQ daily (WT < 150 kg, CrCl > 10-29 mL/min) *Enoxaparin/Lovenox 30 mg SQ BID (WT < 150 kg, CrCl > 30 mL/min) AND/OR *Sequential Compression Device (SCD) 5 or more Highest Order ONE of the following medications: *Heparin 5000 units SQ TID (Preferred with Epidurals) *Enoxaparin/Lovenox 40 mg SQ daily (WT < 150 kg, CrCl > 30 mL/min) *Enoxaparin/Lovenox 30 mg SQ daily (WT < 150 kg, CrCl > 10-29 mL/min) *Enoxaparin/Lovenox 30 mg SQ BID (WT < 150 kg, CrCl > 30 mL/min) AND *Sequential Compression Device (SCD) Assessment and Plan - Assessment (1) NSTEMI (non-ST elevated myocardial infarction) Code(s): I21.4 - Non-ST elevation (NSTEMI) myocardial infarction Status: Acute (2) Hypoxia Code(s): R09.02 - Hypoxemia Status: Acute (3) PNA (pneumonia) Code(s): J18.9 - Pneumonia, unspecified organism Status: Acute (4) Status post total replacement of left hip Code(s): Z96.642 - Presence of left artificial hip joint Status: Acute - Plan A/P: 1. NSTEMI: Trop 0.96, no c/o chest pain, possibly related to cardiac strain/ demand from significant hypoxia, will admit to [facility], continue Heparin gtt, NTG/ Morphine prn, resume ASA/Plavix, Statin and Metoprolol. Consult Cardiology for further eval/intervention. 2. Hypoxia: O2 sat 70% on RA per EMS, s/p Lasix and placed on CPAP, currently on BIPAP. O2 sat 100%, ABG w/ no significant abnormality, will wean as tolerated. Monitor O2. DuoNeb prn. 3. PNA: CXR w/ bilateral lower lobe atelectasis vs pneumonia, in light of hypoxia/leukocytosis will continue w/ IV Abx for PNA, DuoNeb prn as above. 4. HTN: Uncontrolled, BP 170's on arrival, likely compounded by respiratory distress, monitor BP, antihypertensives as needed for BP >180 5. DVT Prophylaxis: Heparin gtt 6. Social work for d/c planning as needed. 7. Case discussed w/ ER physician at length, labs/records/imaging reviewed by me.
[2018-09-17 05:40] LABS: Activated Partial Thrombo Time 30.7 sec (23.4-31.7); INR 1.1 Ratio; Prothrombin Time 10.8 sec (9.8-11.6)
[2018-09-17] MEDS ORDERED: Iohexol 350 MG/ML 100 ML Vial (for Cath Lab) IVCONTRAST ONE (08:01)
[2018-09-17] MEDS: Morphine Inj 4 MG/ML Vial IV.PUSH PRN ×3 (09:17→20:55)
--- NOTE | 2018-09-17 11:18 | NM ---
EXAM DATE: 09/17/2018 11:10 AM EDT AGE/SEX: 83 years / Female INDICATIONS: Embolism. CLINICAL DATA: This is the patient's subsequent encounter. Patient reports that signs and symptoms h ave been present for 2 days and indicates a pain score of 0/10. MEDICAL/SURGICAL HISTORY: Hypercholesterolemia. Hypertension. Cauda equina syndrome, Hx of roscoe ac vein thrombosis, mesenteric artery stenosis, neuropathy, dental bridge present. Hysterectomy. Ap pendectomy. Bilateral carotid endarterectomy, bunionectomy of both great toes, total right hip arthro plasty, cataract surgery, dilation and curettage, lumbar discectomy. COMPAR[place]: [facility] [place] 1[place] SINGLE AP, 09/17/2018. . DOSE: 1.3 mCi Tc99m DTPA aerosol 8.8 mCi Tc99m MAA IV TECHNIQUE: Following five minutes of tidal breathing of DTPA aerosol, planar images of the lungs wer e performed in eight projections. The patient was then injected with MAA, and eight-view perfusion s can was performed. FINDINGS: There is a homogeneous pattern of aerosol delivery to the periphery of both lungs. No focal ventilat ory defects are seen. The perfusion lung scan demonstrates a homogenous pattern of uptake in both lungs. No segmental or s ubsegmental defects are seen. CONCLUSION: No ventilation/perfusion mismatch is identified. Examination is low probability for PE. Electronically signed by: Juan Barnes MD 09/17/2018 11:17 AM EDT
[2018-09-17] MEDS: Azithromycin Inj 500 MG in Sodium Chlor 0.9% Inj 250 ML IV.SIG SCH (12:45)
[2018-09-17] MEDS: Senna/Docusate Sodium 8.6/50 MG Tablet PO SCH ×2 (12:46→21:28)
--- NOTE | 2018-09-17 15:46 | P.PNIM ---
Subjective Interval history: Patient is laying down in bed. She denies any current chest pain. She is not having any shortness of breath currently while on supplemental oxygen. Physical Exam Vital signs: Vital Signs 09/17/18 02:56 09/17/18 03:05 09/17/18 03:31 Temperature 99.3 F Pulse Rate 106 H Respiratory Rate 25 H Blood Pressure 176/75 H Pulse Oximetry 100 100 100 09/17/18 03:47 09/17/18 03:51 09/17/18 04:44 Temperature Pulse Rate 94 H 94 H Respiratory Rate 20 Blood Pressure 147/63 H Pulse Oximetry 97 95 09/17/18 05:10 09/17/18 05:32 09/17/18 05:50 Temperature Pulse Rate 85 Respiratory Rate 16 20 Blood Pressure 130/60 Pulse Oximetry 95 94 L 09/17/18 06:50 09/17/18 07:28 Temperature Pulse Rate Respiratory Rate Blood Pressure Pulse Oximetry 93 L 93 L Intake & Output 09/16/18 09/17/18 09/17/18 18:59 06:59 18:59 Intake Total 100 / 100 Balance 100 / 100 Weight 74.843 kg Intake: IV 100 / 100 Maxipime Inj 2,000 MG In NS Inj 100 / 100 100 ML @ 200 mls/hr IV.SIG ONCE ONE Rx#:[id number] Narrative: General patient complains of some shortness of breath however is comfortable on supplemental oxygen. No chest pain. HEENT extraocular movements are intact, clear oropharyngeal mucosa, nasal cannula in place. Cardiovascular S1-S2 audible, RRR, no murmurs rubs or gallops Respiratory clear to auscultation bilaterally Abdomen soft, nontender, nondistended, normal bowel sounds Extremities complains of some left hip pain. It is status post left hip arthroplasty. Neuro cranial nerves II through XII intact - Urinary Catheter Management Indwelling Urethral Catheter Cath placed during this visit: yes Reason for continuing: Other continuation reason Insertion date: 09/17/18 Insertion time: 03:00 Results - Labs CBC & Chem 7: 09/17/18 03:15 09/17/18 03:15 Laboratory Results - last 24 hr 09/17/18 09/17/18 09/17/18 03:01 03:15 03:15 WBC 15.6 H D RBC 2.92 L Hgb 9.3 L Hct 27.9 L MCV 95.4 MCH 31.9 MCHC 33.4 RDW 13.1 Plt Count 332 D MPV 8.5 Neut % (Auto) 73.0 H Lymph % (Auto) 16.4 Cocke % (Auto) 9.9 H Eos % (Auto) 0.3 Baso % (Auto) 0.4 Neut # (Auto) 11.4 H Lymph # (Auto) 2.6 Cocke # (Auto) 1.5 H Eos # (Auto) 0.0 Baso # (Auto) 0.1 WBC Differential . Differential Comment Auto diff final PT INR APTT Puncture Site Right radial Patient Temperature 98.6 O2 Saturation 97 ABG pH 7.42 ABG pCO2 34 L ABG pO2 132 H ABG HCO3 22 ABG O2 Content 12.5 ABG Base Excess -1.9 ABG Methemoglobin 0.5 Johnnie Test Present Hemoglobin 9.0 L Carboxyhemoglobin 1.5 O2 Delivery Device Bipap Vent Setting [id number] Inspired O2 100 Critical Value No Sodium 130 L Potassium 4.9 Chloride 95 L Carbon Dioxide 24.3 Anion Gap 11 BUN 28 H Creatinine 1.08 H Estimated GFR 48 L Random Glucose 158 H Lactic Acid Calcium 9.1 Total Bilirubin 0.7 AST 43 H ALT 22 Alkaline Phosphatase 62 Troponin I 0.96 H* B-Natriuretic Peptide Total Protein 6.8 Albumin 2.4 L 09/17/18 09/17/18 09/17/18 03:15 03:15 04:56 WBC RBC Hgb Hct MCV MCH MCHC RDW Plt Count MPV Neut % (Auto) Lymph % (Auto) Cocke % (Auto) Eos % (Auto) Baso % (Auto) Neut # (Auto) Lymph # (Auto) Cocke # (Auto) Eos # (Auto) Baso # (Auto) WBC Differential Differential Comment PT 10.8 INR 1.1 APTT 30.7 Puncture Site Patient Temperature O2 Saturation ABG pH ABG pCO2 ABG pO2 ABG HCO3 ABG O2 Content ABG Base Excess ABG Methemoglobin Johnnie Test Hemoglobin Carboxyhemoglobin O2 Delivery Device Vent Setting Inspired O2 Critical Value Sodium Potassium Chloride Carbon Dioxide Anion Gap BUN Creatinine Estimated GFR Random Glucose Lactic Acid 1.7 Calcium Total Bilirubin AST ALT Alkaline Phosphatase Troponin I B-Natriuretic Peptide 618 H Total Protein Albumin 09/17/18 13:05 WBC RBC Hgb Hct MCV MCH MCHC RDW Plt Count MPV Neut % (Auto) Lymph % (Auto) Cocke % (Auto) Eos % (Auto) Baso % (Auto) Neut # (Auto) Lymph # (Auto) Cocke # (Auto) Eos # (Auto) Baso # (Auto) WBC Differential Differential Comment PT INR APTT 46.0 H D Puncture Site Patient Temperature O2 Saturation ABG pH ABG pCO2 ABG pO2 ABG HCO3 ABG O2 Content ABG Base Excess ABG Methemoglobin Johnnie Test Hemoglobin Carboxyhemoglobin O2 Delivery Device Vent Setting Inspired O2 Critical Value Sodium Potassium Chloride Carbon Dioxide Anion Gap BUN Creatinine Estimated GFR Random Glucose Lactic Acid Calcium Total Bilirubin AST ALT Alkaline Phosphatase Troponin I B-Natriuretic Peptide Total Protein Albumin Microbiology 09/17/18 04:56 Nasal Wash Influenza Types A,B Antigen - Final Negative for FLU A and B antigen Infection due to influenza A or B cannot be ruled out since the antigen present in the sample may be below the detection limit of the test. - Imaging Impressions Chest X-Ray 09/17/18 02:56 CONCLUSION: Bilateral lower lobe atelectasis versus pneumonia. Small left effusion Pulmonary Perfusion Imaging 09/17/18 03:21 CONCLUSION: No ventilation/perfusion mismatch is identified. Examination is low probability for PE. Assessment and Plan - Assessment (1) NSTEMI (non-ST elevated myocardial infarction) Code(s): I21.4 - Non-ST elevation (NSTEMI) myocardial infarction Status: Acute (2) Hypoxia Code(s): R09.02 - Hypoxemia Status: Acute (3) PNA (pneumonia) Code(s): J18.9 - Pneumonia, unspecified organism Status: Acute (4) Status post total replacement of left hip Code(s): Z96.642 - Presence of left artificial hip joint Status: Acute - Plan This patient is a 83-year-old female with a diagnosis of hypertension, dyslipidemia, cauda equina syndrome, and history of left hip arthroplasty which was done a week ago and was sent from her rehab center for complaints of shortness of breath. As per the EMS report the patient was found to be hypoxic with an O2 saturation of around 75% on room air. Patient denied any chest pain no fevers or chills. She was brought into the emergency department for evaluation and care. 1. Non-ST segment elevation NJ 2. Acute hypoxic respiratory failure likely secondary to #1 The patient presented with complaints of shortness of breath. She denied having any chest pain. EKG was done which shows sinus tachycardia 1 heart rate in the low 100s. Widened QRS, with questionable septal infarct. Troponins was elevated at 0.96. Next set of troponins is currently pending. Cardiology evaluated the patient. She is currently on aspirin, statin, beta- ivonne, Plavix, heparin drip. Plan is for cardiac catheterization possibly today. I will follow-up with cardiology regarding the plan. Patient is hypoxic on room air. Currently she is requiring 2 L of supplemental oxygen. On my evaluation the patient denied having any chest pain. Continue supplemental oxygen. 3. Questionable pneumonia Patient's chest x-ray shows a left lower lobe questionable pneumonia versus atelectasis. Currently the patient is short of breath however she is afebrile. She does have an elevation in her WBC count. I will continue antibiotics for today. The patient remains afebrile and is asymptomatic we will stop antibiotics tomorrow. I believe the patient's symptoms likely due to an STEMI. 4. Recent left hip arthroplasty We will continue with pain medications as needed for today. DVT prophylaxis, patient is currently on heparin drip. (3) PNA (pneumonia) Qualifiers: Pneumonia type: due to unspecified organism Laterality: right Lung location : lower lobe of lung Qualified Code(s): J18.1 - Lobar pneumonia, unspecified organism
[2018-09-17] MEDS ORDERED: Famotidine PF Inj 20 MG/2 ML Vial IV.PUSH ONE (16:15)
[2018-09-17] MEDS ORDERED: MethylPREDNISolone Sod Succinate Inj 125 MG/2 ML Vial IV.PUSH ONE (16:15)
--- NOTE | 2018-09-17 17:55 | P.CONCA ---
History of Present Illness Service: Cardiology Consult date: 09/17/18 Requesting Physician: Shaggy Leon Reason for Consult: Uremic Pericarditis Primary Care Provider: Selvin Ennis DO History of Present Illness: This is a 83-year-old female with a past medical history of hypertension, hyperlipidemia, cauda equina syndrome and left hip arthroplasty. She states that she was at rehab s/p hip surgery and became very short of breath around 0100 this morning and EMS was called. She denied any CP during this episode. Per the records, EMS found her to be hypoxic and placed on CPAP in the field and transitioned to BIPAP once in the Emergency Department. Currently, she denies any CP, pressure, palpitations, dizziness, edema or SOB. Review of Systems All other systems reviewed negative except as stated in HPI PMFSH - Medical History Medical History: Medical History (Last Reviewed 09/17/18 @ 08:06 by Dashawn Rebolledo) Able to perform intermittent urethral self-catheterization Cauda equina syndrome Dental bridge present High cholesterol History of anesthesia reaction History of iliac vein thrombosis Hx of hysterectomy Hypertension Mesenteric artery stenosis Neuropathy Pain in right hip Self-catheterizes urinary bladder Wears glasses Wears partial dentures - Surgical History Surgical History: Surgical History (Last Reviewed 09/17/18 @ 08:06 by Dashawn Rebolledo) History of bilateral carotid endarterectomy History of bunionectomy of both great toes History of total right hip arthroplasty Hx of appendectomy Hx of cataract removal with insertion of prosthetic lens Hx of detached retina repair Hx of dilation and curettage Hx of lumbar discectomy Hx of vein stripping - Family History Family History: Family History (Last Reviewed 09/17/18 @ 03:20 by Ciaran Camilo DO) Father Tuberculosis Mother COPD (chronic obstructive pulmonary disease) - Tobacco History Second Hand Smoke Exposure: No Smoking Status: Former smoker - Alcohol History How Often Do You Have a Drink Containing Alcohol: Never - Substance Use History Substance History: No History of Abuse - Travel History Recent Travel in the [place] Within the Last 8 Weeks: No Recent Travel Out of the Country Within the Last 8 Weeks: No - Immunization History Tetanus Immunization: >5 Years Medications and Allergies Allergies Allergy/AdvReac Type Severity Reaction Status Date / Time ciprofloxacin Allergy Severe rash Verified 09/13/18 06:05 diatrizoate meglumine Allergy Severe hives Verified 09/13/18 06:05 gadobenic acid Allergy Severe hives Verified 09/13/18 06:05 gadodiamide Allergy Severe hives Verified 09/13/18 06:05 gadoteridol Allergy Severe hives Verified 09/13/18 06:05 hydrochlorothiazide Allergy Severe Itching, Verified 09/13/18 06:05 Generalized iodixanol Allergy Severe hives Verified 09/13/18 06:05 iohexol Allergy Severe hives Verified 09/13/18 06:05 milk [Dairy] Allergy Severe Swelling Verified 09/13/18 06:05 of Lip/Tongue/Throat penicillin G Allergy Severe rash Verified 09/13/18 06:05 Sulfa (Sulfonamide Allergy Severe rash Verified 09/13/18 06:05 Antibiotics) epinephrine AdvReac Severe elevated Verified 09/13/18 06:05 HEART RATE Home Medications Medication Instructions Recorded Confirmed Type amlodipine [Norvasc] 10 mg PO HS 09/02/18 09/17/18 History calcium carbonate [Calcium 500] 500 mg PO BID 09/02/18 09/17/18 History cholecalciferol (vitamin D3) 2,000 unit PO DAILY 09/02/18 09/17/18 History [Vitamin D3] clopidogrel [Plavix] 75 mg PO DAILY 09/02/18 09/17/18 History docusate sodium [Stool Softener] 50 mg PO HS 09/02/18 09/17/18 History fexofenadine [Dena Allergy] 180 mg PO Q24H PRN 09/02/18 09/17/18 History gabapentin [Neurontin] 1 cap PO TID 09/02/18 09/17/18 History magnesium 250 mg PO DAILY 09/02/18 09/17/18 History metoprolol tartrate 25 mg PO DAILY 09/02/18 09/17/18 History metoprolol tartrate 50 mg PO HS 09/02/18 09/17/18 History olmesartan [Benicar] 20 mg PO BID 09/02/18 09/17/18 History omega 1-poe-wnh-fish oil [Fish Oil] 2 cap PO DAILY 09/02/18 09/17/18 History rosuvastatin [Crestor] 10 mg PO DAILY 09/02/18 09/17/18 History spironolactone 25 mg PO DAILY 09/02/18 09/17/18 History bisacodyl [Dulcolax (bisacodyl)] 10 mg [place] Q8H PRN 09/17/18 09/17/18 History magnesium citrate [Citroma] 296 ml PO Q8H PRN 09/17/18 09/17/18 History Active Medications: Active Medications Acetaminophen (Tylenol) 650 mg PO Q4H PRN PRN Reason: Temp > 100.4 Al Hydroxide/Mg Hydroxide (Milk Of Magnesia Liq) 30 ml PO Q12H PRN PRN Reason: Mild Constipation Albuterol (Duoneb Neb (Prn)) 1 ampul NEB Q4HR NEB PRN PRN Reason: SOB/WHEEZING Aspirin (Aspirin Chew) 81 mg PO DAILY MAUREEN Atorvastatin Calcium (Lipitor) 40 mg PO HS [facility] Bisacodyl (Dulcolax Supp) 10 mg RECTAL DAILY PRN PRN Reason: SEVERE CONSITIPATION Clopidogrel Bisulfate (Plavix) 75 mg PO DAILY [facility] Heparin Sodium/Dextrose (Heparin/D5w 25,000 U/250 Ml) 25,000 unit in 250 mls @ 0 mls/hr IV.CONT TITRATE PRN; Protocol PRN Reason: Per Protocol Last Admin: 09/17/18 05:47 Dose: 900 units/hr, 9 mls/hr Azithromycin 500 mg/ Sodium (Chloride) 250 mls @ 250 mls/hr IV.SIG Q24H [facility] Last Admin: 09/17/18 12:45 Dose: 250 mls/hr Aztreonam 1,000 mg/ Sodium (Chloride) 100 mls @ 200 mls/hr IV.SIG Q8H [facility] Last Admin: 09/17/18 13:51 Dose: 200 mls/hr Lactulose (Lactulose Liq) 30 ml PO DAILY PRN PRN Reason: SEVERE CONSITIPATION Metoprolol Tartrate (Lopressor) 12.5 mg PO BID [facility] Morphine Sulfate (Morphine Inj) 2 mg IV.PUSH Q4H PRN PRN Reason: PAIN 6-10 Last Admin: 09/17/18 13:51 Dose: 2 mg Ondansetron HCl (Zofran Inj) 4 mg IV.PUSH Q6H PRN PRN Reason: NAUSEA OR VOMITING Senna/Docusate Sodium (Anh-Colace) 1 tab PO BID [facility] Last Admin: 09/17/18 12:46 Dose: Not Given Sennosides (Senokot) 17.2 mg PO Q12H PRN PRN Reason: Moderate Constipation Exam Vital signs: Vital Signs 09/17/18 02:56 09/17/18 03:05 09/17/18 03:31 Temperature 99.3 F Pulse Rate 106 H Respiratory Rate 25 H Blood Pressure 176/75 H Pulse Oximetry 100 100 100 09/17/18 03:47 09/17/18 03:51 09/17/18 04:44 Temperature Pulse Rate 94 H 94 H Respiratory Rate 20 Blood Pressure 147/63 H Pulse Oximetry 97 95 09/17/18 05:10 09/17/18 05:32 09/17/18 05:50 Temperature Pulse Rate 85 Respiratory Rate 16 20 Blood Pressure 130/60 Pulse Oximetry 95 94 L 09/17/18 06:50 09/17/18 07:28 Temperature Pulse Rate Respiratory Rate Blood Pressure Pulse Oximetry 93 L 93 L Intake & Output 09/16/18 09/17/18 09/17/18 18:59 06:59 18:59 Intake Total 100 / 100 Balance 100 / 100 Weight 74.843 kg Intake: IV 100 / 100 Maxipime Inj 2,000 MG In NS Inj 100 / 100 100 ML @ 200 mls/hr IV.SIG ONCE ONE Rx#:[id number] - Constitutional no acute distress - Routine HEENT Exam Head: Present: normocephalic Eye: Present: PERRL ENT: Present: mucous membranes moist - Routine Neck Exam Present: full ROM - Routine Respiratory Exam Present: CTA bilaterally, crackles Comments: fine crackles bilateral lower lobes. - Routine Cardiovascular Exam Present: S1, S2. Absent: murmur, gallop, rubs - Routine Abdominal Exam Present: normoactive bowel sounds - Routine Extremities Exam Present: full ROM, pulses intact, normal capillary refill. Absent: cyanosis, clubbing, edema - Routine Skin Exam Present: intact - Routine Neurological Exam Present: oriented X3 Results 09/17/18 03:15 09/17/18 03:15 Cardiac Enzymes 09/17/18 09/17/18 09/17/18 Range/Units 03:15 03:15 14:40 AST 43 H (15-37) U/L Troponin I 0.96 H* 1.16 H* D (0.02-0.05) ng/mL B-Natriuretic Peptide 618 H (0-100) pg/mL Coagulation 09/17/18 09/17/18 09/17/18 Range/Units 03:15 04:56 13:05 PT 10.8 (9.8-11.6) sec APTT 30.7 46.0 H D (23.4-31.7) sec B-Natriuretic Peptide 618 H (0-100) pg/mL CBC 09/17/18 Range/Units 03:15 WBC 15.6 H D (4.0-11.0) th/mm3 RBC 2.92 L (4.00-5.30) mil/mm3 Hgb 9.3 L (11.6-15.3) gm/dL Hct 27.9 L (35.0-46.0) % Plt Count 332 D (150-450) th/mm3 Neut # (Auto) 11.4 H (1.8-7.7) th/mm3 Lymph # (Auto) 2.6 (1.0-4.8) th/mm3 [place] # (Auto) 1.5 H (0.0-0.9) th/mm3 Eos # (Auto) 0.0 (0.0-0.4) th/mm3 Baso # (Auto) 0.1 (0.0-0.2) th/mm3 Comprehensive Metabolic Panel 09/17/18 Range/Units 03:15 Sodium 130 L (136-145) meq/L Potassium 4.9 (3.5-5.1) meq/L Chloride 95 L (98-107) meq/L Carbon Dioxide 24.3 (21.0-32.0) meq/L BUN 28 H (7-18) mg/dL Creatinine 1.08 H (0.50-1.00) mg/dL Calcium 9.1 (8.5-10.1) mg/dL AST 43 H (15-37) U/L ALT 22 (10-53) U/L Alkaline Phosphatase 62 (45-117) U/L Total Protein 6.8 (6.4-8.2) g/dL Albumin 2.4 L (3.4-5.0) g/dL Intake and Output 09/17/18 09/17/18 09/17/18 06:59 14:59 22:59 Intake Total 100 / 100 Balance 100 / 100 Intake: IV 100 / 100 Maxipime Inj 2,000 MG In NS Inj 100 / 100 100 ML @ 200 mls/hr IV.SIG ONCE ONE Rx#:[id number] Other: Weight 74.843 kg - Imaging and Cardiology Imaging: Impressions Chest X-Ray 09/17/18 02:56 CONCLUSION: Bilateral lower lobe atelectasis versus pneumonia. Small left effusion Pulmonary Perfusion Imaging 09/17/18 03:21 CONCLUSION: No ventilation/perfusion mismatch is identified. Examination is low probability for PE. Assessment and Plan - Assessment (1) NSTEMI (non-ST elevated myocardial infarction) Code(s): I21.4 - Non-ST elevation (NSTEMI) myocardial infarction Status: Acute (2) Hypertension Code(s): I10 - Essential (primary) hypertension Status: Chronic (3) Hyperlipidemia Code(s): E78.5 - Hyperlipidemia, unspecified Status: Chronic (4) DDD (degenerative disc disease), lumbar Code(s): M51.36 - Other intervertebral disc degeneration, lumbar region Status : Chronic (5) Cauda equina syndrome with neurogenic bladder Code(s): G83.4 - Cauda equina syndrome Status: Chronic (6) Hypoxia Code(s): R09.02 - Hypoxemia Status: Acute (7) PNA (pneumonia) Code(s): J18.9 - Pneumonia, unspecified organism Status: Acute (8) Status post total replacement of left hip Code(s): Z96.642 - Presence of left artificial hip joint Status: Acute - Plan Troponin levels are trending up, we will proceed with cardiac catheterization. Due to patient's allergy to IV contrast, we will give 125mg Solu-Medrol, 25mg Benadryl and 50mg Zantac prior to procedure. Have consent signed for cardiac catheterization with possible angioplasty and stent placement, on chart. Keep patient NPO. Cardiac catheterization risk factors such as, but not limited to: bleeding and/ or infection at the insertion site, acute kidney injury, damage to the coronary arteries, stroke, heart attack and/or possible . Patient verbalized understanding and wishes to proceed. The patient was seen and evaluated by Dr. Huitron who participated in care, management and decision making. - Attending Attestation Patient seen and examined. I reviewed and agree with evaluation and plan as presented. Presentation c/w NSTEMI. Will proceed with cardiac catheterization and coronary intervention if necessary today. (2) Hypertension Qualifiers: Hypertension type: unspecified Qualified Code(s): I10 - Essential (primary) hypertension (7) PNA (pneumonia) Qualifiers: Pneumonia type: due to unspecified organism Laterality: right Lung location : lower lobe of lung Qualified Code(s): J18.1 - Lobar pneumonia, unspecified organism
[2018-09-17] MEDS ORDERED: Heparin 10,000 UNITS/10 ML Vial (for IV use) ONE (18:26)
[2018-09-17] MEDS ORDERED: Heparin/NS PF Inj 500 ML ONE (18:27)
[2018-09-17] MEDS ORDERED: fentaNYL Citrate Inj 100 MCG/2 ML Ampul ONE (18:31)
--- NOTE | 2018-09-17 19:10 | CATHPROC ---
[employer] HIS Report Study Information Study Number Admission Scheduled Start Study Start [id number] Sep 17 2018 4:51AM 09/17/2018 Sep 17 2018 5:58PM [place] [facility] Cardiac Catheterization Admit Source Facility Department Emergency department [facility] - Facilities Maintenance Manager Physician and Clinical Staff Initial Catie Granados Group Fitness Instructor Stacey Barillas,RALEIGH Group Fitness Instructor Peyton Renee,[place] Recorder Daniel Cabrera RCIS(BS) Scrub Freddy John RT(R) Procedures Performed Procedure Location (Site) Vessel Name Angiogram LV LV Ventricle Coronary Angiograms LCA Left Coronary Coronary Angiograms RCA Right Coronary L Heart Cath Equipment Time Newspaper Editor Description Size Mfg Part Number Used/Scraped TRANSDUCER, TRSpindle ResearchJANES [id number] 18:14 Ship Mate GREGORIO * Used W/STOCKCOCK *[id number] [id number] *[id number] [id number] *[id number] [id number] *[id number] 18:14 [employer] BLANKET,WARM AIR CCL * Used *[id number] 18:14 [employer] PACK, CCL CUSTOM * Used *[id number] 18:14 Endorphin PACER PEN, SKIN DUAL W/ RULER * Used *[id number] 18:14 [employer] WIRE, 3MMJ .035 180CM 180CM Used *[id number] PROBE COVER, STERILE [id number] 18:14 [employer] * Used ULTRASOUND W/ GEL *[id number] 18:14 NAMIC MANIFOLD, 4 PORT * Used *[id number] 18:14 NAMIC TUBING, HIGH PRESSURE 48" 48" Used *[id number] 18:14 [employer]COMED OMNIPAQUE, 350 MG, 150ML 150ML [id number] Used 18:41 NYCOMED OMNIPAQUE, 350 MG, 50ML 50ML [id number] Used [id number] 18:14 TERUMVioozer MEDICAL SHEATH, FR5 TERUMO (10CM) FR 5 Used *[id number] History: Current Medications Medication Dosage/Unit Route Frequency Last Date/Time Taken ASA PLAVIX History: Allergies Allergy Reaction Sulfa (Sulfonamide Antibiotics) rash iohexol hives epinephrine elevated HEART RATE diatrizoate meglumine hives ciprofloxacin rash gadoteridol hives gadodiamide hives cortisone inj elevated b/p penicillin G rash iodixanol hives gadobenic acid hives hydrochlorothiazide Itching, Generalized milk Swelling of Lip/Tongue/Throat History: Risk Factors Family History of Hypertension Dyslipidemia Previous ID Previous Heart Failure Premature CAD Yes Yes No No No Prior Valve Prior PCI Prior CABG Surgery No No No Cerebrovascular Peripheral Artery Chronic Lung On Dialysis Diabetes Disease Disease Disease No Yes No Yes No History: Symptoms/Diagnosis Selection Items Chest pain History: Stress Tests Stress or Imaging Studies Performed No History: Other Disease Selection Items HTN History: Other Current Smoker Method Quit Packs a Day Years Used Pack Years No Cigarettes 20 Years Ago 1 40 40 Labs Hgb (g/dl) Hct (%) WBC (l/cumm) Platelets (thousands) 11.60-17.00 35.00-51.00 4.00-11.00 150.00-450.00 9.3 27.9 15.6 332 Glucose (mg/dl) BUN (mg/dl) Creatinine (mg/dl) BUN:Creatinine (1:x) 74.00-106.00 7.00-18.00 0.50-1.30 10.00-20.00 158 28 1.0 28 Na (meq/l) K (meq/l) 136.00-145.00 3.50-5.10 130 4.9 INR (PTT:PT) 0.90-1.10 1.1 Troponin I (ng/ml) CPK-MB (ng/ML) 0.02-0.05 0.50-3.60 1.16 Not Drawn Medication Medication Total Dose (Bolus/Oral) Medication Total Dosage/Unit 1% XYLOCAINE 20 mL FENTANYL 12.5 mcg Medications (Bolus/Oral) Medication Time Given Dosage/Unit Administered By Reason 1% XYLOCAINE 09/17/2018 6:35:44 PM 20 mL Catie Huitron 20 mL 1% XYLOCAINE given in lab by Catie Huitron in Left Groin via Subcutaneous. FENTANYL 09/17/2018 6:36:32 PM 12.5 mcg Peyton Renee 12.5 mcg FENTANYL given in lab by Peyton Renee, RN in Right Forearm via Peripheral IV. Ordered by Catie Huitron. Medication (Drip) Medication Time Given Dosage/Unit Concentration/Unit Diluent (ml) Solution IV Solutions 09/17/2018 6:10:23 PM 0 mL (IV) 500 NaCl .9 Patient arrived on IV Solutions in Right Forearm via Peripheral IV. Pump/Drip Flow = 20 ml/hr using N aCl .9. Ordered by Catie Huitron. Initial Case Assessment Cardiovascular HR Rhythm NIBP Chest Pain 112 afib 137/59 0 Edema Present Skin color Skin None Normal Warm Dry Circulatory - Right Pulses Dorsalis Pedis Femoral 1 2 Scale (0,1,2,3,4,d) Circulatory - Left Pulses Dorsalis Pedis Femoral 1 2 Scale (0,1,2,3,4,d) Neurological State Oriented to time-place- Alert Moves all extremities person Respiration - General Respiration Rate SpO2 (%) O2 (lpm) (B/min) 15 93 10 Final Case Assessment Cardiovascular HR Rhythm NIBP Chest Pain 100 afib 106/55 0 Edema Present Skin color Skin None Normal Warm Dry Circulatory - Right Pulses Dorsalis Pedis Femoral 1 2 Scale (0,1,2,3,4,d) Circulatory - Left Pulses Dorsalis Pedis Femoral 1 2 Scale (0,1,2,3,4,d) Neurological State Oriented to time-place- Alert Moves all extremities person Respiration - General Respiration Rate SpO2 (%) O2 (lpm) (B/min) 15 93 10 Chronological Log Time Study Chronological Log 17:57:40 Patient arrived via Bed. Heparin drip DCed upon picker box operator per MD. 17:57:41 Patient Name, D.O.B, / Armband Verified By R.N. 17:57:43 Consent signed by the physician and the patient and verified by the Facilities Maintenance Manager staff. Vitals capture started with the following parameters, Patient=Adult, Interval=5 min, Initial Pr noycpx=897 mmHg, 18:06:27 Deflation Rate=5 mmHg, Cuff placed on Left Arm 18:06:41 Reference ECG taken 18:07:04 KC=554 bpm, XUXL=748/65 mmhg, SpO2=84 %, Resp=17 B/min, Pain=0, Niharika=10, Arroyo=2 18:10:16 Pre-op and post- op instructions given; patient acknowledges understanding of instructions. 18:10:17 Presedation assessment performed by Facilities Maintenance Manager RN. 18:10:17 Immediate Presedation assesment performed by physician. 18:10:18 Patient has been NPO for More than 6Hrs. 18:10:19 Skin Breakdown- bandage left hip. 18:10:20 Patient Warmer Placed on the Table. 18:10:21 Jolie Prominences Protected 18:10:22 A # 20 IV was noted in the Forearm (right). Grade = 0 Patient arrived on IV Solutions in Right Forearm via Peripheral IV. Pump/Drip Flow = 20 ml/hr u sing NaCl .9. Ordered 18:10:23 by Catie Huitron. 18:10:23 History and physical on the chart or being dictated. 18:12:07 TV=713 bpm, GGAT=195/59 mmhg, SpO2=88.0 %, Resp=11 B/min, Pain=0, Niharika=10, Arroyo=2 Assessment: Initial Case, PV=329 BPM, Rhythm=afib, TMPG=974/59 mmhg, Chest Pain=0, Edema=None, Color=Normal, Skin = Warm, Dry Right Pulses: Erasto Ped=1, Femoral=2 18:12:08 Left Pulses: Erasto Ped=1, Femoral=2 Neurological: State=Alert, Ox3, HAN Respiration: Resp=15 B/min, SpO2=93 %, O2=10 lpm 18:14:09 MD arrived. 18:15:02 Rebreather mask applied 18:17:11 VY=384 bpm, QQFB=266/62 mmhg, SpO2=90.0 %, Resp=18 B/min, Pain=0, Niharika=10, Arroyo=2 18:19:03 Left groin prepped with 2% chlorhexidine, and draped after a 3 min. waiting time. 18:22:10 OM=625 bpm, QPVR=028/66 mmhg, SpO2=95.0 %, Resp=16 B/min, Pain=0, Niharika=10, Arroyo=2 18:25:09 Pressure channel 1 zeroed. 18:25:18 Contrast Scanned 18:25:18 Immediate Presedation assesment performed by physician. 18:27:11 ND=639 bpm, CVWB=021/64 mmhg, SpO2=97.0 %, Resp=14 B/min, Pain=0, Niharika=10, Arroyo=2 18:32:12 EN=061 bpm, KHIE=337/65 mmhg, SpO2=97.0 %, Resp=13 B/min, Pain=0, Niharika=10, Arroyo=2 Time Out. Correct patient, correct procedure, correct physician, labs, allergies, and equipment verified with computer laboratory technician 18:35:31 team present. Fire risk assesment completed (see hard stop sheet for coding). Time Out Conc urred by and individual staff in procedure. 18:35:41 Case Start 18:35:44 20 mL 1% XYLOCAINE given in lab by Catie Huitron in Left Groin via Subcutaneous. 12.5 mcg FENTANYL given in lab by Peyton Renee RN in Right Forearm via Peripheral IV. Orde red by Tomy, 18:36:32 Catie. 18:37:11 DU=885 bpm, FNAI=440/62 mmhg, SpO2=96.0 %, Resp=13 B/min, Pain=0, Niharika=10, Arroyo=2 18:37:36 Access site was Left Femoral Artery. 18:37:40 A SHEATH, FR5 TERUMO (10CM) FR 5 was advanced into the Fem Art (left) using the Percutaneou s technique. A PIGTAIL ANG. INFINITI CATHETER FR 5 was advanced over a wire. OMNIPAQUE, 350 MG, 150ML 150ML was used 18:37:50 for injections. 18:38:44 Activated Clotting Time Drawn Recorded Pressure: LV, MG=216, Condition=Condition 1 18:40:40 (Left Ventricle) LV 177/2/25 18:41:02 The LV was injected at 10 cc/sec for a total of 30. OMNIPAQUE, 350 MG, 50ML 50ML used. 18:42:15 ACT (Normal Range 90-180) = 14.3 Recorded Pressure: LV, Ao, OI=730, Condition=Condition 1 18:42:39 (Left Ventricle) LV 152/4/11, (Aorta) Ao 156/57/97 18:42:49 GR=135 bpm, ZESD=734/63 mmhg, SpO2=95.0 %, Resp=15 B/min, Pain=0, Niharika=10, Arroyo=2 18:43:01 Catheter was removed A JL 4.0 INFINITI CATHETER FR 5 was advanced over a wire. OMNIPAQUE, 350 MG, 150ML 150ML was us ed for 18:43:02 injections. 18:45:11 The LCA was injected and visualized at various angles. OMNIPAQUE, 350 MG, 150ML 150ML used . 18:47:05 OI=450 bpm, OKJB=038/55 mmhg, SpO2=94.0 %, Resp=18 B/min After removing the current catheter a AR MOD INFINITI CATHETER FR 5 was advanced over a WIRE, 3 MMJ .035 180CM 18:47:37 180CM. 18:48:56 The RCA was injected and visualized at various angles. OMNIPAQUE, 350 MG, 150ML 150ML used . 18:49:50 Catheter was removed 18:49:53 Case End (Physician broke scrub) Assessment: Final Case, XB=222 BPM, Rhythm=afib, YZYS=407/55 mmhg, Chest Pain=0, Edema=None, Color=Normal, Skin = Warm, Dry Right Pulses: Erasto Ped=1, Femoral=2 18:49:58 Left Pulses: Erasto Ped=1, Femoral=2 Neurological: State=Alert, Ox3, HAN Respiration: Resp=15 B/min, SpO2=93 %, O2=10 lpm 18:50:13 Catheter(s) removed without difficulty 18:51:30 Case End (Physician broke scrub) 18:52:39 CI=548 bpm, LPMA=040/61 mmhg, SpO2=93.0 %, Resp=18 B/min, Pain=0, Niharika=10, Arroyo=2 18:57:05 MP=683 bpm, QEGN=821/56 mmhg, SpO2=93.0 %, Resp=16 B/min, Pain=0, Niharika=10, Arroyo=2 18:58:21 Sheath removed; pressure applied to access site. 18:58:28 Sterile dressing applied to site 18:58:29 No case complications noted. 18:58:30 Cine recording checked. 18:58:31 Bedside Report will be given. 18:58:34 A Left Heart Cath was performed. 19:02:08 YY=436 bpm, GOWT=786/58 mmhg, SpO2=94.0 %, Resp=17 B/min, Pain=0, Niharika=10, Arroyo=2 19:07:09 ZE=909 bpm, UKRA=580/59 mmhg, SpO2=93.0 %, Resp=15 B/min, Pain=0, Niharika=10, Arroyo=2 19:10:28 Vitals capture stopped. 19:10:34 Sterile dressing applied to site 19:10:36 Patient moved to stretcher End Study - Contrast Media Used In Study Contrast Total Opened (mL) Total Used (mL) Total Wasted (mL) Omnipaque 100 100 0 End Study - Maximum Contrast Load Max Contrast Load (mL) 374.1 End Study - Radiation Exposure Fluoro Time (minutes) 2.4 End Study - Patient Disposition Complications Transferred To Interventional Outcome No Facilities Maintenance Manager Holding No attempt made
--- NOTE | 2018-09-17 19:47 | ECG ---
Date Performed: 09/17/2018 Time Performed: 03:01:40 PTAGE: 83 years EKG: SINUS TACHYCARDIA Left bundle branch block PREVIOUS TRACING :05/06/2016 @08.22.30 Compared to previous tracing, sinus rate has increa sed DOCTOR: Bradley Key Interpretating Date/Time 09/17/2018 19:46:40
--- NOTE | 2018-09-17 19:49 | ECG ---
Date Performed: 09/17/2018 Time Performed: 04:23:32 PTAGE: 83 years EKG: Sinus rhythm Left bundle branch block ABNORMAL ECG PREVIOUS TRACING : 09/17/2018 @03..40 Since the previous tracing, no significant change noted DOCTOR: Bradley Key Interpretating Date/Time 09/17/2018 19:47:45
--- NOTE | 2018-09-17 19:51 | MA ---
cc: Catie Huitron MD DATE: 09/17/2018 INDICATION: Acute coronary syndrome; angina, class IV; congestive heart failure. PROCEDURE PERFORMED: 1. Retrograde left heart catheterization with left ventriculography and selective coronary angiography. 2. Moderate sedation. ACCESS SITE: Left femoral artery. EQUIPMENT USED: A 5 Faroese pigtail catheter and 5 Faroese JL4 and AR modified coronary catheters. MEDICATIONS: Fentanyl IV. CONTRAST: Omnipaque 100 mL. COMPLICATIONS: None. ESTIMATED BLOOD LOSS: Less than 10 mL. METHOD OF HEMOSTASIS: Manual compression. RESULTS: A. HEMODYNAMICS: Heart rate 105 beats per minute, left ventricular end-diastolic pressure 12 mmHg, left ventricle 156/8, aorta 156/57/97. B. LEFT VENTRICULOGRAPHY: Ejection fraction 45%, mild global hypokinesis, no mitral regurgitation. C: CORONARY ANGIOGRAPHY: The left main coronary artery has 40% ostial stenosis and 50% distal stenosis. The left anterior descending coronary artery has 40% stenosis in the mid portion. D1 is patent. Ostial circumflex has 80% stenosis. OM1 is patent. Ramus intermedius is a large vessel which is patent. The right coronary artery has 40% stenosis in the mid portion. PDA has 50% proximal stenosis. PLV patent. DIAGNOSES: 1. Coronary artery disease with 80% stenosis of the left circumflex artery and moderate left main coronary artery disease. 2. Mild left ventricular systolic dysfunction. DISPOSITION: Ms. Cole was found to have evidence of significant stenosis in the left circumflex artery and moderate disease in the left main coronary artery. I recommend medical therapy including therapy for angina, congestive heart failure and aggressive modification of cardiac risk factors. PCI of the left circumflex artery would be a high risk intervention due to the stenosis in the left main coronary artery. She will follow up with Dr. De La Cruz, her primary hob grinder, after discharge. MD CHEMA Deutsch/brittani , 07:07 PM , 07:15 PM ROSAURA
[2018-09-17] MEDS: Metoprolol Tartrate 25 MG Tablet PO SCH (21:28)
[2018-09-17 22:46] LABS: Calcium 8.2 mg/dL (8.5-10.1); Carbon Dioxide 23.3 meq/L (21.0-32.0); Potassium 4.5 meq/L (3.5-5.1)
[2018-09-17 22:47] LABS: Troponin I 0.84 ng/mL (0.02-0.05)
[2018-09-17] MEDS ORDERED: Sodium Chloride 0.9% 2 ML Flush PRN IV.FLUSH (22:50)
[2018-09-18] MEDS: Morphine Inj 4 MG/ML Vial IV.PUSH PRN ×2 (04:02→09:14)
[2018-09-18] MEDS: Acetaminophen 325 MG Tablet PO PRN ×2 (04:04→09:20)
[2018-09-18] MEDS: Isosorbide Mononitrate 30 MG ER 24HR Tablet (Imdur) PO SCH (06:14)
[2018-09-18 07:29] LABS: Baso % (Auto) 0.1 % (0.0-2.0); Hematocrit 21.9 % (35.0-46.0); Hemoglobin 7.5 gm/dL (11.6-15.3); Lymph # (Auto) 0.4 th/mm3 (1.0-4.8); Lymph % (Auto) 5.1 % (9.0-44.0); Mean Corpuscular HGB Conc 34.4 % (32.0-36.0); Mean Corpuscular Hemoglobin 32.8 pg (27.0-34.0); Mean Corpuscular Volume 95.3 fL (80.0-100.0); Mean Platelet Volume 8.1 fL (7.0-11.0); Mono # (Auto) 0.3 th/mm3 (0.0-0.9); Mono % (Auto) 3.2 % (0.0-8.0); Neut # (Auto) 7.6 th/mm3 (1.8-7.7); Neut % (Auto) 91.6 % (16.0-70.0); Platelet Count 264 th/mm3 (150-450); Red Cell Distribution Width 12.9 % (11.6-17.2); White Blood Count 8.3 th/mm3 (4.0-11.0)
[2018-09-18 07:58] LABS: Albumin 1.9 g/dL (3.4-5.0); Anion Gap 10 meq/L (5-15); Aspartate Aminotransferase 40 U/L (15-37); Blood Urea Nitrogen 32 mg/dL (7-18); Calcium 8.1 mg/dL (8.5-10.1); Carbon Dioxide 24.2 meq/L (21.0-32.0); Chloride 102 meq/L (98-107); Glomerular Filtration Rate 53 mL/min (>89); Glucose,Random 161 mg/dL (74-106); Potassium 4.6 meq/L (3.5-5.1); Sodium 136 meq/L (136-145)
[2018-09-18 08:02] LABS: Alanine Aminotransferase 29 U/L (10-53); Alkaline Phosphatase 57 U/L (45-117); Total Protein 5.8 g/dL (6.4-8.2)
[2018-09-18] MEDS: Senna/Docusate Sodium 8.6/50 MG Tablet PO SCH ×2 (09:10→20:35)
[2018-09-18] MEDS: Metoprolol Tartrate 25 MG Tablet PO SCH ×2 (09:11→20:36)
[2018-09-18] MEDS: Azithromycin Inj 500 MG in Sodium Chlor 0.9% Inj 250 ML IV.SIG SCH (09:16)
[2018-09-18] MEDS: Sodium Chloride 0.9% 2 ML Flush BID IV.FLUSH SCH ×2 (09:17→20:36)
--- NOTE | 2018-09-18 16:32 | P.PNIM ---
Subjective Interval history: Patient denies any chest pain. She says she wants to go home and begin rehab. She does not have any other complaints today. Physical Exam Vital signs: Vital Signs 09/17/18 19:00 09/17/18 20:00 09/17/18 21:00 Temperature 98.9 F Pulse Rate 105 H 111 H 98 H Respiratory Rate 16 Blood Pressure 108/55 L Pulse Oximetry 96 09/17/18 22:00 09/17/18 23:00 09/17/18 23:47 Temperature Pulse Rate 108 H 83 82 Respiratory Rate 16 Blood Pressure 100/49 L Pulse Oximetry 94 L 09/18/18 00:00 09/18/18 01:00 09/18/18 02:00 Temperature Pulse Rate 80 86 82 Respiratory Rate Blood Pressure Pulse Oximetry 09/18/18 03:00 09/18/18 03:43 09/18/18 04:00 Temperature Pulse Rate 85 93 H 102 H Respiratory Rate 18 Blood Pressure 122/56 L Pulse Oximetry 97 09/18/18 05:00 09/18/18 06:00 09/18/18 07:00 Temperature 98.7 F Pulse Rate 90 72 89 Respiratory Rate 16 Blood Pressure 146/65 H Pulse Oximetry 94 L 09/18/18 08:00 09/18/18 09:00 09/18/18 10:00 Temperature Pulse Rate 96 H 102 H 86 Respiratory Rate Blood Pressure Pulse Oximetry 09/18/18 11:00 09/18/18 12:00 09/18/18 12:49 Temperature 98.4 F Pulse Rate 79 84 Respiratory Rate 16 Blood Pressure 105/63 Pulse Oximetry 98 98 09/18/18 13:00 09/18/18 14:00 09/18/18 15:00 Temperature 98.1 F Pulse Rate 68 96 H 100 H Respiratory Rate 16 Blood Pressure 129/53 L Pulse Oximetry 92 L Intake & Output 09/17/18 09/18/18 09/18/18 18:59 06:59 18:59 Intake Total 350 / 350 798 / 798 350 / 350 Output Total 2200 / 2200 Balance 350 / 350 -1402 / -1402 350 / 350 Weight 68.5 kg Intake: IV 350 / 350 318 / 318 350 / 350 Heparin/NS PF Inj 500 ML @ 0 0 / 0 mls/hr .ROUTE .STK-MED ONE Rx#: [id number] Heparin/D5W 25,000 U/250 mL 25, 118 / 118 000 unit In 250 ml @ Per Protocol IV.CONT TITRATE PRN Rx #:[id number] Azithromycin Inj 500 MG In NS 250 / 250 250 / 250 Inj 250 ML @ 250 mls/hr IV.SIG Q24H MAUREEN Rx#:[id number] Azactam Inj 1,000 MG In NS Inj 100 / 100 200 / 200 100 / 100 100 ML @ 200 mls/hr IV.SIG Q8H MAUREEN Rx#:[id number] Oral 480 / 480 Output: Urine 2200 / 2200 Other: Date of Last Bowel Movement 09/14/18 09/12/18 # Bowel Movements 0 Weight On Admission 74.8 kg Narrative: General patient complains of some shortness of breath however is comfortable on on room air while at rest. No chest pain. HEENT extraocular movements are intact, clear oropharyngeal mucosa, nasal cannula in place. Cardiovascular S1-S2 audible, RRR, no murmurs rubs or gallops Respiratory clear to auscultation bilaterally Abdomen soft, nontender, nondistended, normal bowel sounds Extremities complains of some left hip pain. She is status post left hip arthroplasty. Some swelling noted around the cardiac cath site however this appears to be due to the recent left hip arthroplasty. Neuro cranial nerves II through XII intact - Urinary Catheter Management Indwelling Urethral Catheter Cath placed during this visit: yes Reason for continuing: Other continuation reason Insertion date: 09/17/18 Insertion time: 03:00 Results - Labs CBC & Chem 7: 09/18/18 05:27 09/18/18 05:27 Laboratory Results - last 24 hr 09/17/18 09/18/18 09/18/18 21:40 05:27 05:27 WBC 8.3 RBC 2.30 L Hgb 7.5 L Hct 21.9 L MCV 95.3 MCH 32.8 MCHC 34.4 RDW 12.9 Plt Count 264 MPV 8.1 Neut % (Auto) 91.6 H Lymph % (Auto) 5.1 L [place] % (Auto) 3.2 Eos % (Auto) 0.0 Baso % (Auto) 0.1 Neut # (Auto) 7.6 Lymph # (Auto) 0.4 L [place] # (Auto) 0.3 Eos # (Auto) 0.0 Baso # (Auto) 0.0 WBC Differential . Differential Comment Auto diff final Sodium 134 L 136 Potassium 4.5 4.6 Chloride 100 102 Carbon Dioxide 23.3 24.2 Anion Gap 11 10 BUN 26 H 32 H Creatinine 0.84 0.99 Estimated GFR 64 L 53 L Random Glucose 188 H 161 H Calcium 8.2 L D 8.1 L Magnesium 2.0 Total Bilirubin 0.5 AST 40 H ALT 29 Alkaline Phosphatase 57 Troponin I 0.84 H* D Total Protein 5.8 L D Albumin 1.9 L Microbiology 09/17/18 03:10 Blood - Peripheral Aerobic Blood Culture - Preliminary No growth in 1 day 09/17/18 03:10 Blood - Peripheral Anaerobic Blood Culture - Preliminary No growth in 1 day 09/17/18 03:15 Blood - Peripheral Aerobic Blood Culture - Preliminary No growth in 1 day 09/17/18 03:15 Blood - Peripheral Anaerobic Blood Culture - Preliminary No growth in 1 day Assessment and Plan - Assessment (1) NSTEMI (non-ST elevated myocardial infarction) Code(s): I21.4 - Non-ST elevation (NSTEMI) myocardial infarction Status: Acute (2) Hypoxia Code(s): R09.02 - Hypoxemia Status: Acute (3) PNA (pneumonia) Code(s): J18.9 - Pneumonia, unspecified organism Status: Acute (4) Status post total replacement of left hip Code(s): Z96.642 - Presence of left artificial hip joint Status: Acute - Plan This patient is a 83-year-old female with a diagnosis of hypertension, dyslipidemia, cauda equina syndrome, and history of left hip arthroplasty which was done a week ago and was sent from her rehab center for complaints of shortness of breath. As per the EMS report the patient was found to be hypoxic with an O2 saturation of around 75% on room air. Patient denied any chest pain no fevers or chills. She was brought into the emergency department for evaluation and care. 1. Non-ST segment elevation [place] 2. Acute hypoxic respiratory failure likely secondary to #1 The patient currently does not have any complaints of chest pain. Yesterday the patient underwent cardiac catheterization which showed a significant stenosis in the left circumflex artery and moderate disease in the left main coronary artery. Cardiology recommends maximizing medical therapy for angina and congestive heart failure as well as aggressive modification of cardiac risk factors. No PCI of the left circumflex artery was done as this is a high risk intervention given the stenosis of the left main coronary. Continue aspirin, statin, Plavix, beta-ivonne, Imdur I will await recommendations from cardiology today. We will continue to titrate the patient off supplemental oxygen. Currently on room air with an O2 saturation of 92% at rest. 3. A symptom medic anemia An ultrasound of the left groin was ordered to evaluate the cardiac catheterization site. There is some swelling on the left side however this could possibly be due to the recent left hip arthroplasty. The patient did have a drop in her hemoglobin. I will follow-up the ultrasound. Follow-up a.m. hemoglobin level. 4. Recent left hip arthroplasty We will continue with pain medications as needed. Patient is afebrile. No signs of infection near the surgical site. DVT prophylaxis, patient is currently on heparin drip. (3) PNA (pneumonia) Qualifiers: Pneumonia type: due to unspecified organism Laterality: right Lung location : lower lobe of lung Qualified Code(s): J18.1 - Lobar pneumonia, unspecified organism
[2018-09-19] MEDS: Isosorbide Mononitrate 30 MG ER 24HR Tablet (Imdur) PO SCH (06:30)
[2018-09-19] MEDS: Acetaminophen 325 MG Tablet PO PRN (06:31)
[2018-09-19] MEDS: Senna/Docusate Sodium 8.6/50 MG Tablet PO SCH ×2 (09:06→20:59)
[2018-09-19] MEDS: Sodium Chloride 0.9% 2 ML Flush BID IV.FLUSH SCH ×2 (09:06→20:59)
[2018-09-19] MEDS: Metoprolol Tartrate 25 MG Tablet PO SCH ×2 (09:06→21:00)
[2018-09-19] MEDS: Azithromycin Inj 500 MG in Sodium Chlor 0.9% Inj 250 ML IV.SIG SCH (09:06)
[2018-09-19 09:22] LABS: Baso % (Auto) 0.3 % (0.0-2.0); Eos % (Auto) 0.3 % (0.0-4.0); Hematocrit 22.4 % (35.0-46.0); Hemoglobin 7.6 gm/dL (11.6-15.3); Lymph # (Auto) 1.4 th/mm3 (1.0-4.8); Lymph % (Auto) 9.6 % (9.0-44.0); Mean Corpuscular HGB Conc 33.9 % (32.0-36.0); Mean Corpuscular Hemoglobin 32.2 pg (27.0-34.0); Mean Corpuscular Volume 95.1 fL (80.0-100.0); Mean Platelet Volume 8.1 fL (7.0-11.0); Mono # (Auto) 1.1 th/mm3 (0.0-0.9); Mono % (Auto) 7.5 % (0.0-8.0); Neut # (Auto) 12.2 th/mm3 (1.8-7.7); Neut % (Auto) 82.3 % (16.0-70.0); Platelet Count 338 th/mm3 (150-450); Red Blood Count 2.36 mil/mm3 (4.00-5.30); Red Cell Distribution Width 13.2 % (11.6-17.2); White Blood Count 14.8 th/mm3 (4.0-11.0)
[2018-09-19 09:47] LABS: Calcium 8.1 mg/dL (8.5-10.1); Carbon Dioxide 26.4 meq/L (21.0-32.0); Magnesium 2.9 mg/dL (1.5-2.5); Potassium 4.3 meq/L (3.5-5.1)
--- NOTE | 2018-09-19 10:32 | US ---
EXAM DATE: 09/19/2018 10:24 AM EST AGE/SEX: 83 years / Female INDICATIONS: Hematoma. CLINICAL DATA: This is the patient's initial encounter. Patient reports that signs and symptoms have been present for 1 week and indicates a pain score of 1/10. MEDICAL/SURGICAL HISTORY: Hypercholesterolemia. Hypertension. Cauda equine syndrome. Seizures. Iliac vein thrombosis. Mesenteric artery stenosis. Neuropathy. Right hip pain. Glasses. Dentures. H ysterectomy. Carotid endarterectomy. Appendectomy. Bunionectomy. Right hip arthroplasty. Bilateral cataract removal. Detached retina repair. Dilation and curettage. Lumbar discectomy. Vein stripping. COMPARISON: [facility], US LEG VENOUS DOPPLER, BILATERAL, 07/06/2015. . TECHNIQUE: Valentino-scale and color Doppler imaging of the inguinal region was performed. FINDINGS: Vascular: The arteries and veins in the inguinal region demonstrate no acute abnormality. There is no aneurysm, pseudoaneurysm, or thrombosis. Other: No hematoma is present. The visualized surrounding structures demonstrate no abnormality. CONCLUSION: 1. Femoral vessels are patent. 2. No evidence of pseudoaneurysm. Electronically signed by: Chadwick Salinas MD 09/19/2018 10:31 AM EST
[2018-09-19] MEDS: Azithromycin 250 MG Tablet PO SCH (11:31)
[2018-09-19 11:38] LABS: Eosinophils 1 % (0-4); Lymphocytes 8 % (9-44); Monocytes 5 % (0-8); Myelocytes 2 % (0-0); Platelet Estimate Normal (Normal); Platelet Morphology Normal (Normal); Tallied Nucleated RBC 1 (0-0); Toxic Granulation 1+
[2018-09-19 11:39] LABS: Dimorphic RBC Present
[2018-09-19] MEDS: Gabapentin 300 MG Capsule PO SCH ×2 (14:06→18:10)
--- NOTE | 2018-09-19 17:50 | P.DS ---
Date of admission: 09/17/18 04:51 Primary care physician: Selvin Ennis DO Brief History from admission: This is an 83-year-old female with a PMH of HTN, Hyperlipidemia, Cauda Equina Syndrome and h/o Left Hip Arthroplasty who was sent to the ER from Rehab for c/ o SOB. DS: Diagnosis - Discharge Diagnosis (1) NSTEMI (non-ST elevated myocardial infarction) Status: Acute (2) Hypoxia Status: Acute (3) PNA (pneumonia) Status: Acute (4) Status post total replacement of left hip Status: Acute DS: Summary Hospital Course: This patient is an 83-year-old female with a diagnosis of hypertension, dyslipidemia, cauda equina syndrome, and history of left hip arthroplasty which was done approximately 9 days ago. The patient also has urinary retention and self catheterizes at home. Currently she has a Mack catheter in place. Patient was found to be hypoxic with an O2 saturation around 75% at the rehab center where she was discharged to after the left hip arthroplasty. 1. Non-ST segment elevation [place] 2. Acute hypoxic respiratory failure secondary to #1 Patient denied having any complaints of chest pain however did have shortness of breath. Cardiology evaluated the patient due to her slight elevation in troponins. She subsequently underwent cardiac catheterization which showed significant stenosis in the left circumflex artery and moderate disease in the left main coronary artery. Cardiology recommended maximizing medical therapy for angina and congestive heart failure as well as aggressive modification of cardiac risk factors. No PCI was done as this would be high risk intervention given the stenosis in the left main coronary. She is to continue aspirin, statin, Plavix, beta-ivonne, Imdur. The patient is currently on room air to 1 L of supplemental oxygen. She is stable to be transferred and continue rehab at [facility]. After discharge from the rehab facility patient should have regular follow-up with a well tender. 3. Asymptomatic anemia. Patient recently had left hip arthroplasty. After the cardiac catheterization there was a drop in the patient's hemoglobin from 9-7.5. There was a concern for possible hematoma, an ultrasound was done of the left artery catheterization site which showed no findings of pseudoaneurysm or hematoma. Hemoglobin has been stable over the past couple of days. Follow-up a.m. labs. 4. Recent left hip arthroplasty Wound appears clean and left hip no signs of infection. [facility] to [facility]. She can follow-up with Dr. Rothman for further management recommendations of her left hip arthroplasty. 5. Questionable pneumonia Patient had one fever on initial evaluation in our hospital. Chest imaging did show atelectasis versus pneumonia. WBC count was slightly elevated. Patient is currently on azithromycin. Continue azithromycin for 3 more days. 6. Urinary retention Patient says she self catheterizes at home. I recommend removing Mack catheter in the next few days if possible and continue self catheterizations to avoid catheter-induced infections. - Time Spent with Patient Total time spent providing and/or coordinating discharge services: Greater than 30 minutes - Quality: VTE Deep Vein Thrombosis/Pulmonary Embolism Present on Admission: No Exam Vital signs: Vital Signs 09/18/18 19:00 09/18/18 20:00 09/18/18 21:00 Temperature 98.2 F Pulse Rate 94 H 104 H 98 H Respiratory Rate 18 Blood Pressure 134/57 L Pulse Oximetry 97 09/18/18 22:00 09/18/18 22:17 09/18/18 23:00 Temperature Pulse Rate 92 H 86 Respiratory Rate 18 Blood Pressure 113/62 Pulse Oximetry 94 L 98 09/19/18 00:00 09/19/18 01:00 EDT 09/19/18 01:00 EST Temperature Pulse Rate 82 92 H 94 H Respiratory Rate Blood Pressure Pulse Oximetry 09/19/18 02:00 09/19/18 03:00 09/19/18 04:00 Temperature Pulse Rate 72 69 92 H Respiratory Rate 16 Blood Pressure 117/49 L Pulse Oximetry 97 09/19/18 05:00 09/19/18 06:00 09/19/18 07:00 Temperature 97.7 F Pulse Rate 76 90 90 Respiratory Rate 16 Blood Pressure 129/55 L Pulse Oximetry 96 09/19/18 08:00 09/19/18 09:00 09/19/18 10:00 Temperature Pulse Rate 88 92 H 92 H Respiratory Rate Blood Pressure Pulse Oximetry 09/19/18 10:39 09/19/18 11:00 09/19/18 12:00 Temperature 97.9 F Pulse Rate 83 86 Respiratory Rate 16 Blood Pressure 136/68 Pulse Oximetry 95 91 L 09/19/18 13:00 09/19/18 14:00 09/19/18 15:00 Temperature 98.3 F Pulse Rate 92 H 84 85 Respiratory Rate 16 Blood Pressure 148/63 H Pulse Oximetry 92 L 09/19/18 16:00 Temperature Pulse Rate 90 Respiratory Rate Blood Pressure Pulse Oximetry Intake & Output 09/18/18 09/19/18 09/19/18 19:59 06:59 18:59 Intake Total 75 / 75 Output Total Balance 75 / 75 Weight Intake: IV 75 / 75 Azithromycin Inj 500 MG In NS 75 / 75 Inj 250 ML @ 250 mls/hr IV.SIG Q24H MAUREEN Rx#:[id number] Azactam Inj 1,000 MG In NS Inj 100 ML @ 200 mls/hr IV.SIG Q8H MAUREEN Rx#:[id number] Oral Output: Urine Other: Date of Last Bowel Movement 09/19/18 # Bowel Movements Narrative: General patient complains of some shortness of breath when she moves around however is comfortable on on room air while at rest. No chest pain. HEENT extraocular movements are intact, clear oropharyngeal mucosa, nasal cannula in place. Cardiovascular S1-S2 audible, RRR, no murmurs rubs or gallops Respiratory clear to auscultation bilaterally Abdomen soft, nontender, nondistended, normal bowel sounds Extremities complains of some left hip pain. She is status post left hip arthroplasty. Neuro cranial nerves II through XII intact Results Procedures completed during hospitalization: Cardiac catheterization Labs on day of discharge: Labs from last 24 hours 09/19/18 09/19/18 07:39 07:39 WBC 14.8 H RBC 2.36 L Hgb 7.6 L Hct 22.4 L MCV 95.1 MCH 32.2 MCHC 33.9 RDW 13.2 Plt Count 338 MPV 8.1 Prelim Diff (Auto) Slide review pending Neut % (Auto) 82.3 H Lymph % (Auto) 9.6 [place] % (Auto) 7.5 Eos % (Auto) 0.3 Baso % (Auto) 0.3 Neut # (Auto) 12.2 H Lymph # (Auto) 1.4 [place] # (Auto) 1.1 H Eos # (Auto) 0.0 Baso # (Auto) 0.0 WBC Differential Manual diff final Seg Neuts % (Manual) 82 H Band Neuts % (Manual) 2 Lymphocytes % (Manual) 8 L Monocytes % (Manual) 5 Eosinophils % (Manual) 1 Myelocytes % (Man) 2 H Abs Neuts (Manual) 12.7 H Nucleated RBCs/100 WBC 1 H Differential Comment . Toxic Granulation 1+ H Platelet Estimate Normal Platelet Morphology Normal Dimorphic RBCs Present H Polychromasia 2.0 H Sodium 138 Potassium 4.3 Chloride 101 Carbon Dioxide 26.4 Anion Gap 11 BUN 46 H Creatinine 0.98 Estimated GFR 54 L Random Glucose 117 H Calcium 8.1 L Magnesium 2.9 H D Preliminary micro results at discharge 09/17/18 03:10 Aerobic Blood Culture - Preliminary Blood - Peripheral No growth in 2 days Anaerobic Blood Culture - Preliminary No growth in 2 days 09/17/18 03:15 Aerobic Blood Culture - Preliminary Blood - Peripheral No growth in 2 days Anaerobic Blood Culture - Preliminary No growth in 2 days - Impressions ITS Impressions Chest X-Ray 09/17/18 02:56 CONCLUSION: Bilateral lower lobe atelectasis versus pneumonia. Small left effusion Pulmonary Perfusion Imaging 09/17/18 03:21 CONCLUSION: No ventilation/perfusion mismatch is identified. Examination is low probability for PE. Lower Extremity Ultrasound 09/19/18 10:00 CONCLUSION: 1. Femoral vessels are patent. 2. No evidence of pseudoaneurysm. Discharge Plan - Discharge Disposition Patient Disposition: 62 Rehab Inpatient - Discharge Condition Condition: Stable - Discharge Order Discharge Orders: Discharge Order (Routine); Ordered 09/19/18 Ordered By: Andrea Miles - Physicians Team Primary Care Provider: Selvin Ennis Attending Provider: Andrea Miles Other Providers: Kamari Do MD
[2018-09-19] MEDS: Nystatin/Diphenhydramine/Lidocaine Mouthwash (Adult) 120 ML Botttle SWISH-SPIT PRN (18:11)
[2018-09-20] MEDS: Acetaminophen 325 MG Tablet PO PRN ×2 (06:37→13:53)
[2018-09-20] MEDS: Isosorbide Mononitrate 30 MG ER 24HR Tablet (Imdur) PO SCH (06:37)
[2018-09-20] MEDS: Nystatin/Diphenhydramine/Lidocaine Mouthwash (Adult) 120 ML Botttle SWISH-SPIT PRN ×2 (06:40→19:34)
[2018-09-20] MEDS: Gabapentin 300 MG Capsule PO SCH ×3 (09:15→17:35)
[2018-09-20] MEDS: Metoprolol Tartrate 25 MG Tablet PO SCH ×2 (09:15→20:47)
[2018-09-20] MEDS: Senna/Docusate Sodium 8.6/50 MG Tablet PO SCH ×2 (09:15→20:47)
[2018-09-20] MEDS: Azithromycin 250 MG Tablet PO SCH (09:16)
[2018-09-20] MEDS: Sodium Chloride 0.9% 2 ML Flush BID IV.FLUSH SCH ×2 (09:17→20:46)
[2018-09-20 09:31] LABS: Baso # (Auto) 0.1 th/mm3 (0.0-0.2); Baso % (Auto) 0.4 % (0.0-2.0); Eos # (Auto) 0.1 th/mm3 (0.0-0.4); Eos % (Auto) 0.9 % (0.0-4.0); Hematocrit 21.1 % (35.0-46.0); Hemoglobin 7.6 gm/dL (11.6-15.3); Lymph # (Auto) 1.2 th/mm3 (1.0-4.8); Lymph % (Auto) 9.9 % (9.0-44.0); Mean Corpuscular Hemoglobin 33.9 pg (27.0-34.0); Mean Corpuscular Volume 94.3 fL (80.0-100.0); Mean Platelet Volume 7.5 fL (7.0-11.0); Mono # (Auto) 0.6 th/mm3 (0.0-0.9); Neut # (Auto) 9.8 th/mm3 (1.8-7.7); Neut % (Auto) 83.8 % (16.0-70.0); Platelet Count 340 th/mm3 (150-450); Red Blood Count 2.24 mil/mm3 (4.00-5.30); Red Cell Distribution Width 13.4 % (11.6-17.2); White Blood Count 11.7 th/mm3 (4.0-11.0)
[2018-09-20 09:55] LABS: Calcium 7.9 mg/dL (8.5-10.1); Carbon Dioxide 24.5 meq/L (21.0-32.0); Magnesium 2.7 mg/dL (1.5-2.5); Potassium 4.1 meq/L (3.5-5.1)
[2018-09-20 10:20] LABS: Eosinophils 2 % (0-4); Lymphocytes 10 % (9-44); Monocytes 2 % (0-8); Platelet Estimate Normal (Normal); Platelet Morphology Normal (Normal); Tallied Nucleated RBC 1 (0-0)
--- NOTE | 2018-09-20 11:41 | XR ---
EXAM DATE: 09/20/2018 11:35 AM EST AGE/SEX: 83 years / Female INDICATIONS: Short of breath. CLINICAL DATA: This is the patient's subsequent encounter. Patient reports that signs and symptoms h ave been present for 1 week and indicates a pain score of 0/10. MEDICAL/SURGICAL HISTORY: . Hypercholesterolemia. Hypertension. Cauda equina syndrome, Hx of i liac vein thrombosis, mesenteric artery stenosis, neuropathy, dental bridge present. . Hysterectom y. Appendectomy. Bilateral carotid endarterectomy, bunionectomy of both great toes, total right hip a rthroplasty, cataract surgery, dilation and curettage, lumbar discectomy. COMPARISON: [facility] [place], CHEST 1V SINGLE AP, 09/17/2018. . FINDINGS: A single AP view of the chest demonstrates bibasilar densities and probable small left pleural effusi on. Slight interstitial thickening, less prominent. The cardiomediastinal contours are unremarkable. Osseous structures are intact. CONCLUSION: Bibasilar densities and small left pleural effusion. Electronically signed by: Luis Calvo MD 09/20/2018 11:40 AM EST
[2018-09-20] MEDS ORDERED: Sodium Chlor 0.9% Inj 250 ML IV.SIG SCH (12:00)
--- NOTE | 2018-09-20 12:09 | P.PNIM ---
Subjective Interval history: Patient says she feels fine while she is at rest. She does get short of breath when she begins to move around or attempts to ambulate. Physical Exam Vital signs: Vital Signs 09/19/18 13:00 09/19/18 14:00 09/19/18 15:00 Temperature 98.3 F Pulse Rate 92 H 84 85 Respiratory Rate 16 Blood Pressure 148/63 H Pulse Oximetry 92 L 09/19/18 16:00 09/19/18 17:00 09/19/18 18:00 Temperature Pulse Rate 90 94 H 98 H Respiratory Rate Blood Pressure Pulse Oximetry 09/19/18 19:00 09/19/18 20:00 09/19/18 20:59 Temperature 98.5 F Pulse Rate 96 H 90 Respiratory Rate 18 Blood Pressure 123/60 Pulse Oximetry 92 L 94 L 09/19/18 21:00 09/19/18 22:00 09/19/18 23:00 Temperature Pulse Rate 92 H 70 86 Respiratory Rate 16 Blood Pressure 135/65 Pulse Oximetry 95 09/20/18 00:00 09/20/18 01:00 09/20/18 02:00 Temperature Pulse Rate 76 72 66 Respiratory Rate Blood Pressure Pulse Oximetry 09/20/18 03:00 09/20/18 04:00 09/20/18 05:00 Temperature Pulse Rate 73 80 82 Respiratory Rate 18 Blood Pressure 111/50 L Pulse Oximetry 98 09/20/18 06:00 09/20/18 07:00 09/20/18 08:00 Temperature 99.5 F Pulse Rate 86 82 90 Respiratory Rate 16 Blood Pressure 138/60 Pulse Oximetry 97 09/20/18 09:00 09/20/18 10:00 09/20/18 11:00 Temperature 98.2 F Pulse Rate 110 H 88 86 Respiratory Rate 16 Blood Pressure 105/50 L Pulse Oximetry 96 Intake & Output 09/19/18 09/20/18 09/20/18 18:59 06:59 18:59 Intake Total 75 / 75 480 / 480 Output Total 900 / 900 1150 / 1150 Balance -825 / -825 -670 / -670 Weight 73.5 kg Intake: IV 75 / 75 Azithromycin Inj 500 MG In NS 75 / 75 Inj 250 ML @ 250 mls/hr IV.SIG Q24H [facility] Rx#:[id number] Oral 480 / 480 Output: Urine Amount (Catheter) 900 / 900 1150 / 1150 Indwelling Urethral Catheter 900 / 900 1150 / 1150 Other: Date of Last Bowel Movement 09/19/18 09/19/18 09/20/18 # Bowel Movements 1 0 Narrative: General patient complains of some shortness of breath when ambulating. She says she is comfortable at rest. HEENT extraocular movements are intact, clear oropharyngeal mucosa, nasal cannula in place. Cardiovascular S1-S2 audible, RRR, no murmurs rubs or gallops Respiratory clear to auscultation bilaterally Abdomen soft, nontender, nondistended, normal bowel sounds Extremities complains of some left hip pain. She is status post left hip arthroplasty. Cath site appears clean no signs of infection, no hematoma Neuro cranial nerves II through XII intact - Urinary Catheter Management Indwelling Urethral Catheter Cath placed during this visit: yes Reason for continuing: Chronic Urinary Retention Insertion date: 09/17/18 Insertion time: 03:00 Results - Labs CBC & Chem 7: 09/20/18 09:17 09/20/18 09:17 Laboratory Results - last 24 hr 09/20/18 09/20/18 09/20/18 09:17 09:17 11:39 WBC 11.7 H RBC 2.24 L Hgb 7.6 L Hct 21.1 L MCV 94.3 MCH 33.9 MCHC 36.0 RDW 13.4 Plt Count 340 MPV 7.5 Prelim Diff (Auto) Slide review pending Neut % (Auto) 83.8 H Lymph % (Auto) 9.9 [place] % (Auto) 5.0 Eos % (Auto) 0.9 Baso % (Auto) 0.4 Neut # (Auto) 9.8 H Lymph # (Auto) 1.2 [place] # (Auto) 0.6 Eos # (Auto) 0.1 Baso # (Auto) 0.1 WBC Differential Manual diff final Seg Neuts % (Manual) 83 H Band Neuts % (Manual) 3 Lymphocytes % (Manual) 10 Monocytes % (Manual) 2 Eosinophils % (Manual) 2 Abs Neuts (Manual) 10.1 H Nucleated RBCs/100 WBC 1 H Differential Comment . Platelet Estimate Normal Platelet Morphology Normal Sodium 138 Potassium 4.1 Chloride 105 Carbon Dioxide 24.5 Anion Gap 9 BUN 28 H Creatinine 0.77 Estimated GFR 71 L Random Glucose 148 H Calcium 7.9 L Magnesium 2.7 H MTS Gel Crossmatch See Detail Microbiology 09/17/18 03:10 Blood - Peripheral Aerobic Blood Culture - Preliminary No growth in 3 days 09/17/18 03:10 Blood - Peripheral Anaerobic Blood Culture - Preliminary No growth in 3 days 09/17/18 03:15 Blood - Peripheral Aerobic Blood Culture - Preliminary No growth in 3 days 09/17/18 03:15 Blood - Peripheral Anaerobic Blood Culture - Preliminary No growth in 3 days - Imaging Impressions Chest X-Ray 09/20/18 00:00 CONCLUSION: Bibasilar densities and small left pleural effusion. - Procedures Cardiac catheterization Assessment and Plan - Assessment (1) NSTEMI (non-ST elevated myocardial infarction) Code(s): I21.4 - Non-ST elevation (NSTEMI) myocardial infarction Status: Acute (2) Hypoxia Code(s): R09.02 - Hypoxemia Status: Acute (3) PNA (pneumonia) Code(s): J18.9 - Pneumonia, unspecified organism Status: Acute (4) Status post total replacement of left hip Code(s): Z96.642 - Presence of left artificial hip joint Status: Acute - Plan This patient is a 83-year-old female with a diagnosis of hypertension, dyslipidemia, cauda equina syndrome, and history of left hip arthroplasty which was done a week ago and was sent from her rehab center for complaints of shortness of breath. As per the EMS report the patient was found to be hypoxic with an O2 saturation of around 75% on room air. Patient denied any chest pain no fevers or chills. She was brought into the emergency department for evaluation and care. 1. Acute symptomatic anemia The patient has shortness of breath when she moves from the bed to a chair or attempts to ambulate. At rest she is not hypoxic however her oxygen saturation does drop when she begins to ambulate. Her hemoglobin has dropped since undergoing the left hip arthroplasty and is down 9-7.5 during this hospitalization. I have ordered a chest x-ray and we will also give the patient 1 unit PRBC as she will likely benefit from a blood transfusion. Ultimately the plan is for the patient to be discharged to [facility] given her recent left hip arthroplasty and will need to start physical therapy. I believe the transfusion will help with her symptoms. 2. Non-ST segment elevation MO 3. Acute hypoxic respiratory failure likely secondary to #1 The patient underwent cardiac cath which showed a lesion in the circumflex however no intervention was done given the diseased LAD. Patient would be at high risk for intervention to the circumflex. Cardiology following the patient. Continue aspirin, statin, Plavix, beta-ivonne, Imdur I will await recommendations from cardiology today. Continue supplemental oxygen as needed. 4. Recent left hip arthroplasty We will continue with pain medications as needed. Patient is afebrile. No signs of infection near the surgical site. DVT prophylaxis, patient is currently on heparin drip. (3) PNA (pneumonia) Qualifiers: Pneumonia type: due to unspecified organism Laterality: right Lung location : lower lobe of lung Qualified Code(s): J18.1 - Lobar pneumonia, unspecified organism
[2018-09-20] MEDS: Enoxaparin Inj 40 MG/0.4 ML Syringe SQ SCH (12:32)
--- NOTE | 2018-09-20 13:45 | P.PNCA ---
Subjective Interval history: Patient denies any chest pain, pressure, palpitations, dizziness or edema. Patient does complain of shortness of breath with any activity. Medications and Allergies Allergies Allergy/AdvReac Type Severity Reaction Status Date / Time ciprofloxacin Allergy Severe rash Verified 09/13/18 06:05 diatrizoate meglumine Allergy Severe hives Verified 09/13/18 06:05 gadobenic acid Allergy Severe hives Verified 09/13/18 06:05 gadodiamide Allergy Severe hives Verified 09/13/18 06:05 gadoteridol Allergy Severe hives Verified 09/13/18 06:05 hydrochlorothiazide Allergy Severe Itching, Verified 09/13/18 06:05 Generalized iodixanol Allergy Severe hives Verified 09/13/18 06:05 iohexol Allergy Severe hives Verified 09/13/18 06:05 milk [Dairy] Allergy Severe Swelling Verified 09/13/18 06:05 of Lip/Tongue/Throat penicillin G Allergy Severe rash Verified 09/13/18 06:05 Sulfa (Sulfonamide Allergy Severe rash Verified 09/13/18 06:05 Antibiotics) epinephrine AdvReac Severe elevated Verified 09/13/18 06:05 HEART RATE Home Medications Medication Instructions Recorded Confirmed Type amlodipine [Norvasc] 10 mg PO HS 09/02/18 09/17/18 History calcium carbonate [Calcium 500] 500 mg PO BID 09/02/18 09/17/18 History cholecalciferol (vitamin D3) 2,000 unit PO DAILY 09/02/18 09/17/18 History [Vitamin D3] clopidogrel [Plavix] 75 mg PO DAILY 09/02/18 09/17/18 History docusate sodium [Stool Softener] 50 mg PO HS 09/02/18 09/17/18 History fexofenadine [Dena Allergy] 180 mg PO Q24H PRN 09/02/18 09/17/18 History gabapentin [Neurontin] 1 cap PO TID 09/02/18 09/17/18 History magnesium 250 mg PO DAILY 09/02/18 09/17/18 History metoprolol tartrate 25 mg PO DAILY 09/02/18 09/17/18 History metoprolol tartrate 50 mg PO HS 09/02/18 09/17/18 History olmesartan [Benicar] 20 mg PO BID 09/02/18 09/17/18 History omega 5-[id number]-zby-fish oil [Fish Oil] 2 cap PO DAILY 09/02/18 09/17/18 History rosuvastatin [Crestor] 10 mg PO DAILY 09/02/18 09/17/18 History spironolactone 25 mg PO DAILY 09/02/18 09/17/18 History bisacodyl [Dulcolax (bisacodyl)] 10 mg WA Q8H PRN 09/17/18 09/17/18 History magnesium citrate [Citroma] 296 ml PO Q8H PRN 09/17/18 09/17/18 History Active Medications: Active Medications Acetaminophen (Tylenol) 650 mg PO Q4H PRN PRN Reason: Temp > 100.4 Last Admin: 09/20/18 06:37 Dose: 650 mg Hydrocodone Bitart/Acetaminophen (Riley 5/325) 1 tab PO Q6H PRN PRN Reason: BACK PAIN Al Hydroxide/Mg Hydroxide (Milk Of Magnesia Liq) 30 ml PO Q12H PRN PRN Reason: Mild Constipation Last Admin: 09/18/18 09:13 Dose: 30 ml Albuterol (Duoneb Neb (Prn)) 1 ampul NEB Q4HR NEB PRN PRN Reason: SOB/WHEEZING Aspirin (Aspirin Chew) 81 mg PO DAILY [facility] Last Admin: 09/20/18 09:15 Dose: 81 mg Atorvastatin Calcium (Lipitor) 80 mg PO HS [facility] Last Admin: 09/19/18 21:00 Dose: 80 mg Azithromycin (Zithromax) 250 mg PO DAILY [facility] Last Admin: 09/20/18 09:16 Dose: 250 mg Bisacodyl (Dulcolax Supp) 10 mg RECTAL DAILY PRN PRN Reason: SEVERE CONSITIPATION Last Admin: 09/19/18 11:36 Dose: 10 mg Clopidogrel Bisulfate (Plavix) 75 mg PO DAILY [facility] Last Admin: 09/20/18 09:15 Dose: 75 mg Enoxaparin Sodium (Lovenox Inj) 40 mg SQ DAILY@1200 [facility] Last Admin: 09/20/18 12:32 Dose: 40 mg Gabapentin (Neurontin) 300 mg PO TID [facility] Last Admin: 09/20/18 12:32 Dose: 300 mg Sodium Chloride (Ns Inj) 250 mls @ 15 mls/hr IV.SIG ONCE [facility] Stop: 09/21/18 04:39 Isosorbide Mononitrate (Imdur) 30 mg PO DAILY@0700 [facility] Last Admin: 09/20/18 06:37 Dose: 30 mg Lactulose (Lactulose Liq) 30 ml PO DAILY PRN PRN Reason: SEVERE CONSITIPATION Metoprolol Tartrate (Lopressor) 12.5 mg PO BID [facility] Last Admin: 09/20/18 09:15 Dose: 12.5 mg Multi-Ingredient Mouthwash/Gargle (Magic Mouthwash Adult Liq) 15 ml SWISH-SPIT Q12H PRN PRN Reason: MOUTH PAIN Last Admin: 09/20/18 06:40 Dose: 15 ml Ondansetron HCl (Zofran Inj) 4 mg IV.PUSH Q6H PRN PRN Reason: NAUSEA OR VOMITING Senna/Docusate Sodium (Anh-Colace) 1 tab PO BID [facility] Last Admin: 09/20/18 09:15 Dose: 1 tab Sennosides (Senokot) 17.2 mg PO Q12H PRN PRN Reason: Moderate Constipation Sodium Chloride (Ns Flush) 2 ml IV.FLUSH BID [facility] Last Admin: 09/20/18 09:17 Dose: 2 ml Sodium Chloride (Ns Flush) 2 ml IV.FLUSH PRN PRN PRN Reason: FLUSH AFTER USING IV ACCESS Physical Exam Vital signs: Vital Signs 09/19/18 14:00 09/19/18 15:00 09/19/18 16:00 Temperature 98.3 F Pulse Rate 84 85 90 Respiratory Rate 16 Blood Pressure 148/63 H Pulse Oximetry 92 L 09/19/18 17:00 09/19/18 18:00 09/19/18 19:00 Temperature 98.5 F Pulse Rate 94 H 98 H 96 H Respiratory Rate 18 Blood Pressure 123/60 Pulse Oximetry 92 L 09/19/18 20:00 09/19/18 20:59 09/19/18 21:00 Temperature Pulse Rate 90 92 H Respiratory Rate Blood Pressure Pulse Oximetry 94 L 09/19/18 22:00 09/19/18 23:00 09/20/18 00:00 Temperature Pulse Rate 70 86 76 Respiratory Rate 16 Blood Pressure 135/65 Pulse Oximetry 95 09/20/18 01:00 09/20/18 02:00 09/20/18 03:00 Temperature Pulse Rate 72 66 73 Respiratory Rate 18 Blood Pressure 111/50 L Pulse Oximetry 98 09/20/18 04:00 09/20/18 05:00 09/20/18 06:00 Temperature Pulse Rate 80 82 86 Respiratory Rate Blood Pressure Pulse Oximetry 09/20/18 07:00 09/20/18 08:00 09/20/18 09:00 Temperature 99.5 F Pulse Rate 82 90 110 H Respiratory Rate 16 Blood Pressure 138/60 Pulse Oximetry 97 09/20/18 10:00 09/20/18 11:00 Temperature 98.2 F Pulse Rate 88 86 Respiratory Rate 16 Blood Pressure 105/50 L Pulse Oximetry 96 Intake & Output 09/19/18 09/20/18 09/20/18 18:59 06:59 18:59 Intake Total 75 / 75 480 / 480 Output Total 900 / 900 1150 / 1150 Balance -825 / -825 -670 / -670 Weight 73.5 kg Intake: IV 75 / 75 Azithromycin Inj 500 MG In NS 75 / 75 Inj 250 ML @ 250 mls/hr IV.SIG Q24H [facility] Rx#:[id number] Oral 480 / 480 Output: Urine Amount (Catheter) 900 / 900 1150 / 1150 Indwelling Urethral Catheter 900 / 900 1150 / 1150 Other: Date of Last Bowel Movement 09/19/18 09/19/18 09/20/18 # Bowel Movements 1 0 - Constitutional no acute distress - Routine HEENT Exam Head: Present: normocephalic Eye: Present: PERRL ENT: Present: mucous membranes moist - Routine Neck Exam Present: full ROM - Routine Respiratory Exam Present: CTA bilaterally - Routine Cardiovascular Exam Present: S1, S2. Absent: murmur, gallop, rubs - Routine Abdominal Exam Present: normoactive bowel sounds - Routine Extremities Exam Present: full ROM, pulses intact, normal capillary refill. Absent: cyanosis, clubbing, edema - Routine Skin Exam Present: intact - Routine Neurological Exam Present: oriented X3 - Detailed Neurological Exam: Coma Scale Eye Opening: Spontaneous Verbal Response: Oriented Motor Response: Obey commands Dominick Coma Scale Total: 15 - Routine Psychiatric Exam Present: normal affect - Urinary Catheter Management Indwelling Urethral Catheter Cath placed during this visit: yes Reason for continuing: Chronic Urinary Retention Insertion date: 09/17/18 Insertion time: 03:00 Results 09/20/18 09:17 09/20/18 09:17 CBC 09/19/18 09/20/18 Range/Units 07:39 09:17 WBC 14.8 H 11.7 H (4.0-11.0) th/mm3 RBC 2.36 L 2.24 L (4.00-5.30) mil/mm3 Hgb 7.6 L 7.6 L (11.6-15.3) gm/dL Hct 22.4 L 21.1 L (35.0-46.0) % Plt Count 338 340 (150-450) th/mm3 Neut # (Auto) 12.2 H 9.8 H (1.8-7.7) th/mm3 Lymph # (Auto) 1.4 1.2 (1.0-4.8) th/mm3 [place] # (Auto) 1.1 H 0.6 (0.0-0.9) th/mm3 Eos # (Auto) 0.0 0.1 (0.0-0.4) th/mm3 Baso # (Auto) 0.0 0.1 (0.0-0.2) th/mm3 Comprehensive Metabolic Panel 09/19/18 09/20/18 Range/Units 07:39 09:17 Sodium 138 138 (136-145) meq/L Potassium 4.3 4.1 (3.5-5.1) meq/L Chloride 101 105 (98-107) meq/L Carbon Dioxide 26.4 24.5 (21.0-32.0) meq/L BUN 46 H 28 H (7-18) mg/dL Creatinine 0.98 0.77 (0.50-1.00) mg/dL Calcium 8.1 L 7.9 L (8.5-10.1) mg/dL Intake and Output 09/19/18 09/20/18 09/20/18 22:59 06:59 14:59 Intake Total 480 / 480 Output Total 900 / 900 1150 / 1150 Balance -900 / -900 -670 / -670 Intake: Oral 480 / 480 Output: Urine Amount (Catheter) 900 / 900 1150 / 1150 Indwelling Urethral Catheter 900 / 900 1150 / 1150 Other: Date of Last Bowel Movement 09/19/18 09/19/18 09/20/18 # Bowel Movements 1 0 Weight 73.5 kg - Imaging and Cardiology Imaging: Impressions Lower Extremity Ultrasound 09/19/18 10:00 CONCLUSION: 1. Femoral vessels are patent. 2. No evidence of pseudoaneurysm. Chest X-Ray 09/20/18 00:00 CONCLUSION: Bibasilar densities and small left pleural effusion. Assessment and Plan - Assessment (1) NSTEMI (non-ST elevated myocardial infarction) Code(s): I21.4 - Non-ST elevation (NSTEMI) myocardial infarction Status: Acute (2) Hypertension Code(s): I10 - Essential (primary) hypertension Status: Chronic (3) Hyperlipidemia Code(s): E78.5 - Hyperlipidemia, unspecified Status: Chronic (4) DDD (degenerative disc disease), lumbar Code(s): M51.36 - Other intervertebral disc degeneration, lumbar region Status : Chronic (5) Cauda equina syndrome with neurogenic bladder Code(s): G83.4 - Cauda equina syndrome Status: Chronic (6) Hypoxia Code(s): R09.02 - Hypoxemia Status: Acute (7) PNA (pneumonia) Code(s): J18.9 - Pneumonia, unspecified organism Status: Acute (8) Status post total replacement of left hip Code(s): Z96.642 - Presence of left artificial hip joint Status: Acute - Plan Cardiac cath done on 09-17-2018 showed 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 The risk of PCI of left circumflex artery is too high due to left main coronary stenosis. We will treat the patient medically at this time and continue aggressive modification of cardiac risk factors. Pulmonary function test was done on 09-17-2018 which showed a low probability for PE. Patient has shortness of breath which is possibly related to her anemia. She will be receiving a blood transfusion today. Continue treatment for congestive heart failure. We will continue to monitor patient during her hospitalization. The patient was seen and evaluated by Dr. Huitron who participated in care, management and decision making. - Attending Attestation Patient seen and examined. I reviewed and agree with the evaluation and plan as presented. Still c/o dyspnea. Proceed with transfusion as planned. Continue current program including aggressive risk factor modification. (2) Hypertension Qualifiers: Hypertension type: unspecified Qualified Code(s): I10 - Essential (primary) hypertension (7) PNA (pneumonia) Qualifiers: Pneumonia type: due to unspecified organism Laterality: right Lung location : lower lobe of lung Qualified Code(s): J18.1 - Lobar pneumonia, unspecified organism
[2018-09-21] MEDS: Isosorbide Mononitrate 30 MG ER 24HR Tablet (Imdur) PO SCH (06:01)
--- NOTE | 2018-09-21 08:59 | P.PNCA ---
Subjective Interval history: Patient denies any CP, pressure, palpitations, dizziness or edema. Patient states that her SOB is getting better. Medications and Allergies Allergies Allergy/AdvReac Type Severity Reaction Status Date / Time ciprofloxacin Allergy Severe rash Verified 09/21/18 17:13 diatrizoate meglumine Allergy Severe hives Verified 09/21/18 17:13 gadobenic acid Allergy Severe hives Verified 09/21/18 17:13 gadodiamide Allergy Severe hives Verified 09/21/18 17:13 gadoteridol Allergy Severe hives Verified 09/21/18 17:13 hydrochlorothiazide Allergy Severe Itching, Verified 09/21/18 17:13 Generalized iodixanol Allergy Severe hives Verified 09/21/18 17:13 iohexol Allergy Severe hives Verified 09/21/18 17:13 milk [Dairy] Allergy Severe Swelling Verified 09/21/18 17:13 of Lip/Tongue/Throat penicillin G Allergy Severe rash Verified 09/21/18 17:13 Sulfa (Sulfonamide Allergy Severe rash Verified 09/21/18 17:13 Antibiotics) epinephrine AdvReac Severe elevated Verified 09/21/18 17:13 HEART RATE Home Medications Medication Instructions Recorded Confirmed Type calcium carbonate [Calcium 500] 500 mg PO BID 09/02/18 09/21/18 History cholecalciferol (vitamin D3) 2,000 unit PO DAILY 09/02/18 09/21/18 History [Vitamin D3] docusate sodium [Stool Softener] 50 mg PO HS 09/02/18 09/21/18 History fexofenadine [Dena Allergy] 180 mg PO Q24H PRN 09/02/18 09/21/18 History magnesium 250 mg PO DAILY 09/02/18 09/21/18 History olmesartan [Benicar] 20 mg PO BID 09/02/18 09/21/18 History omega 4-syq-ath-fish oil [Fish Oil] 2 cap PO DAILY 09/02/18 09/21/18 History spironolactone 25 mg PO DAILY 09/02/18 09/21/18 History bisacodyl [Dulcolax (bisacodyl)] 10 mg [place] Q8H PRN 09/17/18 09/21/18 History magnesium citrate [Citroma] 296 ml PO Q8H PRN 09/17/18 09/21/18 History Active Medications: Active Medications Acetaminophen (Tylenol) 650 mg PO Q4H PRN PRN Reason: Temp > 100.4 Last Admin: 09/20/18 13:53 Dose: 650 mg Hydrocodone Bitart/Acetaminophen ([place] 5/325) 1 tab PO Q6H PRN PRN Reason: BACK PAIN Last Admin: 09/21/18 02:41 Dose: 1 tab Al Hydroxide/Mg Hydroxide (Milk Of Magnesia Liq) 30 ml PO Q12H PRN PRN Reason: Mild Constipation Last Admin: 09/18/18 09:13 Dose: 30 ml Albuterol (Duoneb Neb (Prn)) 1 ampul NEB Q4HR NEB PRN PRN Reason: SOB/WHEEZING Aspirin (Aspirin Chew) 81 mg PO DAILY [facility] Last Admin: 09/20/18 09:15 Dose: 81 mg Atorvastatin Calcium (Lipitor) 80 mg PO HS [facility] Last Admin: 09/20/18 20:47 Dose: 80 mg Azithromycin (Zithromax) 250 mg PO DAILY [facility] Last Admin: 09/20/18 09:16 Dose: 250 mg Bisacodyl (Dulcolax Supp) 10 mg RECTAL DAILY PRN PRN Reason: SEVERE CONSITIPATION Last Admin: 09/19/18 11:36 Dose: 10 mg Clopidogrel Bisulfate (Plavix) 75 mg PO DAILY [facility] Last Admin: 09/20/18 09:15 Dose: 75 mg Enoxaparin Sodium (Lovenox Inj) 40 mg SQ DAILY@1200 [facility] Last Admin: 09/20/18 12:32 Dose: 40 mg Gabapentin (Neurontin) 300 mg PO TID [facility] Last Admin: 09/20/18 17:35 Dose: 300 mg Isosorbide Mononitrate (Imdur) 30 mg PO DAILY@0700 [facility] Last Admin: 09/21/18 06:01 Dose: 30 mg Lactulose (Lactulose Liq) 30 ml PO DAILY PRN PRN Reason: SEVERE CONSITIPATION Metoprolol Tartrate (Lopressor) 12.5 mg PO BID [facility] Last Admin: 09/20/18 20:47 Dose: 12.5 mg Multi-Ingredient Mouthwash/Gargle (Magic Mouthwash Adult Liq) 15 ml SWISH-SPIT Q12H PRN PRN Reason: MOUTH PAIN Last Admin: 09/20/18 19:34 Dose: 15 ml Ondansetron HCl (Zofran Inj) 4 mg IV.PUSH Q6H PRN PRN Reason: NAUSEA OR VOMITING Senna/Docusate Sodium (Anh-Colace) 1 tab PO BID [facility] Last Admin: 09/20/18 20:47 Dose: 1 tab Sennosides (Senokot) 17.2 mg PO Q12H PRN PRN Reason: Moderate Constipation Sodium Chloride (Ns Flush) 2 ml IV.FLUSH BID [facility] Last Admin: 09/20/18 20:46 Dose: 2 ml Sodium Chloride (Ns Flush) 2 ml IV.FLUSH PRN PRN PRN Reason: FLUSH AFTER USING IV ACCESS Physical Exam Vital signs: Vital Signs 09/20/18 09:00 09/20/18 10:00 09/20/18 11:00 Temperature 98.2 F Pulse Rate 110 H 88 86 Respiratory Rate 16 Blood Pressure 105/50 L Pulse Oximetry 96 09/20/18 12:00 09/20/18 13:00 09/20/18 14:00 Temperature Pulse Rate 90 92 H 98 H Respiratory Rate Blood Pressure Pulse Oximetry 09/20/18 14:37 09/20/18 14:49 09/20/18 14:59 Temperature 98.6 F 98.6 F 98.6 F Pulse Rate 95 H 93 H 93 H Respiratory Rate 16 16 16 Blood Pressure 146/64 H 145/62 H 153/57 H Pulse Oximetry 92 L 91 L 09/20/18 15:00 09/20/18 15:16 09/20/18 16:00 Temperature 98.3 F 98.3 F Pulse Rate 80 94 H 72 Respiratory Rate 16 16 Blood Pressure 153/57 H 127/49 L Pulse Oximetry 90 L 90 L 09/20/18 17:00 09/20/18 17:45 09/20/18 18:00 Temperature Pulse Rate 96 H 88 Respiratory Rate Blood Pressure Pulse Oximetry 94 L 09/20/18 18:40 09/20/18 19:00 09/20/18 19:52 Temperature 98.1 F Pulse Rate 91 H 96 H Respiratory Rate 16 16 16 Blood Pressure 153/94 H 143/64 H Pulse Oximetry 90 L 94 L 09/20/18 20:00 09/20/18 21:00 09/20/18 22:00 Temperature Pulse Rate 87 78 77 Respiratory Rate Blood Pressure Pulse Oximetry 09/20/18 23:00 09/21/18 00:00 09/21/18 01:00 Temperature 97.9 F Pulse Rate 80 72 84 Respiratory Rate 18 Blood Pressure 142/72 H Pulse Oximetry 97 09/21/18 02:00 09/21/18 03:00 09/21/18 04:00 Temperature 98.2 F Pulse Rate 85 82 83 Respiratory Rate 18 Blood Pressure 156/70 H Pulse Oximetry 94 L 09/21/18 05:00 09/21/18 06:00 Temperature Pulse Rate 79 91 H Respiratory Rate Blood Pressure Pulse Oximetry Intake & Output 09/20/18 09/21/18 09/21/18 18:59 06:59 18:59 Intake Total 720 / 720 1130 / 1130 Output Total 600 / 600 1200 / 1200 Balance 120 / 120 -70 / -70 Weight 70.5 kg Intake: IV 250 / 250 NS Inj 250 ML @ 15 mls/hr IV. 250 / 250 SIG ONCE MAUREEN Rx#:[id number] Oral 720 / 720 480 / 480 Intake (Blood Product) Amt 0 / 0 400 / 400 Rbc As-3 Leukoreduced Unit 0 / 0 400 / 400 [id number] Output: Urine 600 / 600 Urine Amount (Catheter) 1200 / 1200 Indwelling Urethral Catheter 1200 / 1200 Other: Date of Last Bowel Movement 09/20/18 09/20/18 - Constitutional no acute distress - Routine HEENT Exam Head: Present: normocephalic Eye: Present: PERRL ENT: Present: mucous membranes moist - Routine Neck Exam Present: full ROM - Routine Respiratory Exam Present: crackles Comments: fine crackles noted bilateral lower lobes. - Routine Cardiovascular Exam Present: S1, S2. Absent: murmur, gallop, rubs - Routine Abdominal Exam Present: normoactive bowel sounds - Routine Extremities Exam Present: full ROM, pulses intact, normal capillary refill. Absent: cyanosis, clubbing, edema - Routine Skin Exam Present: intact - Routine Neurological Exam Present: oriented X3 - Detailed Neurological Exam: Coma Scale Eye Opening: Spontaneous Verbal Response: Oriented Motor Response: Obey commands Dominick Coma Scale Total: 15 - Routine Psychiatric Exam Present: normal affect - Urinary Catheter Management Indwelling Urethral Catheter Cath placed during this visit: yes Reason for continuing: Chronic Urinary Retention Insertion date: 09/17/18 Insertion time: 03:00 Results 09/21/18 10:50 09/20/18 09:17 CBC 09/19/18 09/20/18 Range/Units 07:39 09:17 WBC 14.8 H 11.7 H (4.0-11.0) th/mm3 RBC 2.36 L 2.24 L (4.00-5.30) mil/mm3 Hgb 7.6 L 7.6 L (11.6-15.3) gm/dL Hct 22.4 L 21.1 L (35.0-46.0) % Plt Count 338 340 (150-450) th/mm3 Neut # (Auto) 12.2 H 9.8 H (1.8-7.7) th/mm3 Lymph # (Auto) 1.4 1.2 (1.0-4.8) th/mm3 [place] # (Auto) 1.1 H 0.6 (0.0-0.9) th/mm3 Eos # (Auto) 0.0 0.1 (0.0-0.4) th/mm3 Baso # (Auto) 0.0 0.1 (0.0-0.2) th/mm3 Comprehensive Metabolic Panel 09/19/18 09/20/18 Range/Units 07:39 09:17 Sodium 138 138 (136-145) meq/L Potassium 4.3 4.1 (3.5-5.1) meq/L Chloride 101 105 (98-107) meq/L Carbon Dioxide 26.4 24.5 (21.0-32.0) meq/L BUN 46 H 28 H (7-18) mg/dL Creatinine 0.98 0.77 (0.50-1.00) mg/dL Calcium 8.1 L 7.9 L (8.5-10.1) mg/dL Intake and Output 09/20/18 09/21/18 09/21/18 22:59 06:59 14:59 Intake Total 1370 / 1370 480 / 480 Output Total 600 / 600 1200 / 1200 Balance 770 / 770 -720 / -720 Intake: IV 250 / 250 NS Inj 250 ML @ 15 mls/hr IV. 250 / 250 SIG ONCE MAUREEN Rx#:[id number] Oral 720 / 720 480 / 480 Intake (Blood Product) Amt 400 / 400 Rbc As-3 Leukoreduced Unit 400 / 400 [id number] Output: Urine 600 / 600 Urine Amount (Catheter) 1200 / 1200 Indwelling Urethral Catheter 1200 / 1200 Other: Date of Last Bowel Movement 09/20/18 09/20/18 Weight 70.5 kg - Imaging and Cardiology Imaging: Impressions Lower Extremity Ultrasound 09/19/18 10:00 CONCLUSION: 1. Femoral vessels are patent. 2. No evidence of pseudoaneurysm. Chest X-Ray 09/20/18 00:00 CONCLUSION: Bibasilar densities and small left pleural effusion. Assessment and Plan - Assessment (1) NSTEMI (non-ST elevated myocardial infarction) Code(s): I21.4 - Non-ST elevation (NSTEMI) myocardial infarction Status: Acute (2) Hypertension Code(s): I10 - Essential (primary) hypertension Status: Chronic (3) Hyperlipidemia Code(s): E78.5 - Hyperlipidemia, unspecified Status: Chronic (4) DDD (degenerative disc disease), lumbar Code(s): M51.36 - Other intervertebral disc degeneration, lumbar region Status : Chronic (5) Cauda equina syndrome with neurogenic bladder Code(s): G83.4 - Cauda equina syndrome Status: Chronic (6) Hypoxia Code(s): R09.02 - Hypoxemia Status: Acute (7) PNA (pneumonia) Code(s): J18.9 - Pneumonia, unspecified organism Status: Acute (8) Status post total replacement of left hip Code(s): Z96.642 - Presence of left artificial hip joint Status: Acute - Plan Patient received a blood transfusion yesterday and states she is feeling much better. We will order a repeat CBC to evaluate the anemia. We will continue treatment for congestive heart failure. We will continue to monitor the patient during her hospitalization. Anticipate discharge to rehab soon. F/u w Dr. Do as outpatient. The patient was seen and evaluated by Dr. Huitron who participated in care, management and decision making. - Attending Attestation Patient seen and examined. I reviewed and agree with the evaluation and plan as presented. No new cardiac issues. Anticipate discharge soon. F/u w Dr. Do as outpatient. (2) Hypertension Qualifiers: Hypertension type: essential hypertension Qualified Code(s): I10 - Essential (primary) hypertension (3) Hyperlipidemia Qualifiers: Hyperlipidemia type: mixed hyperlipidemia Qualified Code(s): E78.2 - Mixed hyperlipidemia (7) PNA (pneumonia) Qualifiers: Pneumonia type: due to unspecified organism Laterality: right Lung location : lower lobe of lung Qualified Code(s): J18.1 - Lobar pneumonia, unspecified organism
[2018-09-21] MEDS: Sodium Chloride 0.9% 2 ML Flush BID IV.FLUSH SCH (09:30)
[2018-09-21] MEDS: Metoprolol Tartrate 25 MG Tablet PO SCH (09:42)
[2018-09-21] MEDS: Gabapentin 300 MG Capsule PO SCH ×2 (09:42→12:30)
[2018-09-21] MEDS: Senna/Docusate Sodium 8.6/50 MG Tablet PO SCH (09:42)
[2018-09-21] MEDS: Acetaminophen 325 MG Tablet PO PRN (09:42)
[2018-09-21] MEDS: Azithromycin 250 MG Tablet PO SCH (09:42)
[2018-09-21 10:59] LABS: Baso # (Auto) 0.1 th/mm3 (0.0-0.2); Baso % (Auto) 0.6 % (0.0-2.0); Eos # (Auto) 0.1 th/mm3 (0.0-0.4); Eos % (Auto) 0.8 % (0.0-4.0); Hematocrit 28.4 % (35.0-46.0); Hemoglobin 9.7 gm/dL (11.6-15.3); Lymph # (Auto) 1.3 th/mm3 (1.0-4.8); Lymph % (Auto) 8.6 % (9.0-44.0); Mean Corpuscular HGB Conc 34.2 % (32.0-36.0); Mean Corpuscular Volume 93.6 fL (80.0-100.0); Mean Platelet Volume 7.2 fL (7.0-11.0); Mono # (Auto) 0.9 th/mm3 (0.0-0.9); Mono % (Auto) 5.9 % (0.0-8.0); Neut # (Auto) 12.8 th/mm3 (1.8-7.7); Neut % (Auto) 84.1 % (16.0-70.0); Platelet Count 380 th/mm3 (150-450); Red Blood Count 3.04 mil/mm3 (4.00-5.30); Red Cell Distribution Width 13.9 % (11.6-17.2); White Blood Count 15.3 th/mm3 (4.0-11.0)
[2018-09-21 12:06] LABS: Dimorphic RBC Present; Lymphocytes 2 % (9-44); Monocytes 8 % (0-8)
[2018-09-21 12:07] LABS: Platelet Estimate Normal (Normal); Platelet Morphology Normal (Normal); Promyelocyte 1 % (0-0)
[2018-09-21] MEDS ORDERED: Metoprolol Tartrate 25 MG Tablet PO ONE (12:30)
[2018-09-21] MEDS: Enoxaparin Inj 40 MG/0.4 ML Syringe SQ SCH (12:30)
--- NOTE | 2018-09-21 15:11 | P.PNIM ---
Subjective Interval history: Patient is laying down in bed. She is looking forward to starting rehab. Physical Exam Vital signs: Vital Signs 09/20/18 15:16 09/20/18 16:00 09/20/18 17:00 Temperature 98.3 F Pulse Rate 94 H 72 96 H Respiratory Rate 16 Blood Pressure 127/49 L Pulse Oximetry 90 L 09/20/18 17:45 09/20/18 18:00 09/20/18 18:40 Temperature Pulse Rate 88 91 H Respiratory Rate 16 Blood Pressure 153/94 H Pulse Oximetry 94 L 90 L 09/20/18 19:00 09/20/18 19:52 09/20/18 20:00 Temperature 98.1 F Pulse Rate 96 H 87 Respiratory Rate 16 16 Blood Pressure 143/64 H Pulse Oximetry 94 L 09/20/18 21:00 09/20/18 22:00 09/20/18 23:00 Temperature 97.9 F Pulse Rate 78 77 80 Respiratory Rate 18 Blood Pressure 142/72 H Pulse Oximetry 97 09/21/18 00:00 09/21/18 01:00 09/21/18 02:00 Temperature Pulse Rate 72 84 85 Respiratory Rate Blood Pressure Pulse Oximetry 09/21/18 03:00 09/21/18 04:00 09/21/18 05:00 Temperature 98.2 F Pulse Rate 82 83 79 Respiratory Rate 18 Blood Pressure 156/70 H Pulse Oximetry 94 L 09/21/18 06:00 09/21/18 07:00 09/21/18 08:00 Temperature 98.3 F Pulse Rate 91 H 89 78 Respiratory Rate 20 Blood Pressure 165/63 H Pulse Oximetry 91 L 09/21/18 09:00 09/21/18 10:00 09/21/18 11:00 Temperature 97.6 F Pulse Rate 78 82 84 Respiratory Rate 16 Blood Pressure 164/68 H Pulse Oximetry 94 L 09/21/18 13:29 Temperature Pulse Rate 90 Respiratory Rate Blood Pressure Pulse Oximetry Intake & Output 09/20/18 09/21/18 09/21/18 18:59 06:59 18:59 Intake Total 720 / 720 1130 / 1130 Output Total 600 / 600 1200 / 1200 Balance 120 / 120 -70 / -70 Weight 70.5 kg Intake: IV 250 / 250 NS Inj 250 ML @ 15 mls/hr IV. 250 / 250 SIG ONCE MAUREEN Rx#:[id number] Oral 720 / 720 480 / 480 Intake (Blood Product) Amt 0 / 0 400 / 400 Rbc As-3 Leukoreduced Unit 0 / 0 400 / 400 [id number] Output: Urine 600 / 600 Urine Amount (Catheter) 1200 / 1200 Indwelling Urethral Catheter 1200 / 1200 Other: Date of Last Bowel Movement 09/20/18 09/20/18 09/21/18 Narrative: General patient says she feels somewhat better than she did yesterday after the transfusion. HEENT extraocular movements are intact, clear oropharyngeal mucosa, nasal cannula in place. Cardiovascular S1-S2 audible, RRR, no murmurs rubs or gallops Respiratory clear to auscultation bilaterally Abdomen soft, nontender, nondistended, normal bowel sounds Extremities complains of some left hip pain. She is status post left hip arthroplasty. Neuro cranial nerves II through XII intact - Urinary Catheter Management Indwelling Urethral Catheter Cath placed during this visit: yes Reason for continuing: Chronic Urinary Retention Insertion date: 09/17/18 Insertion time: 03:00 Results - Labs CBC & Chem 7: 09/21/18 10:50 09/20/18 09:17 Laboratory Results - last 24 hr 09/20/18 09/21/18 11:39 10:50 WBC 15.3 H RBC 3.04 L Hgb 9.7 L D Hct 28.4 L MCV 93.6 MCH 32.0 MCHC 34.2 RDW 13.9 Plt Count 380 MPV 7.2 Prelim Diff (Auto) Slide review pending Neut % (Auto) 84.1 H Lymph % (Auto) 8.6 L [place] % (Auto) 5.9 Eos % (Auto) 0.8 Baso % (Auto) 0.6 Neut # (Auto) 12.8 H Lymph # (Auto) 1.3 [place] # (Auto) 0.9 Eos # (Auto) 0.1 Baso # (Auto) 0.1 WBC Differential Manual diff final Seg Neuts % (Manual) 89 H Lymphocytes % (Manual) 2 L Monocytes % (Manual) 8 Promyelocytes % (Man) 1 H Abs Neuts (Manual) 13.8 H Differential Comment . Platelet Estimate Normal Platelet Morphology Normal Dimorphic RBCs Present H MTS Gel Crossmatch See Detail Microbiology 09/17/18 03:10 Blood - Peripheral Aerobic Blood Culture - Preliminary No growth in 4 days 09/17/18 03:10 Blood - Peripheral Anaerobic Blood Culture - Preliminary No growth in 4 days 09/17/18 03:15 Blood - Peripheral Aerobic Blood Culture - Preliminary No growth in 4 days 09/17/18 03:15 Blood - Peripheral Anaerobic Blood Culture - Preliminary No growth in 4 days - Procedures Cardiac catheterization Assessment and Plan - Assessment (1) NSTEMI (non-ST elevated myocardial infarction) Code(s): I21.4 - Non-ST elevation (NSTEMI) myocardial infarction Status: Acute (2) Hypoxia Code(s): R09.02 - Hypoxemia Status: Acute (3) PNA (pneumonia) Code(s): J18.9 - Pneumonia, unspecified organism Status: Acute (4) Status post total replacement of left hip Code(s): Z96.642 - Presence of left artificial hip joint Status: Acute - Plan This patient is a 83-year-old female with a diagnosis of hypertension, dyslipidemia, cauda equina syndrome, and history of left hip arthroplasty which was done a week ago and was sent from her rehab center for complaints of shortness of breath. As per the EMS report the patient was found to be hypoxic with an O2 saturation of around 75% on room air. Patient denied any chest pain no fevers or chills. She was brought into the emergency department for evaluation and care. 1. Acute symptomatic anemia 2. Recent left hip arthroplasty The patient received 1 unit PRBC yesterday. She says she feels somewhat better today. Hemoglobin improved from yesterday. Patient will continue physical therapy at [facility] today. We will continue with pain medications as needed. Patient is afebrile. No signs of infection near the surgical site. Continue to monitor he hemoglobin levels. 2. Non-ST segment elevation DE 3. Acute hypoxic respiratory failure likely secondary to #1 The patient underwent cardiac cath which showed a lesion in the circumflex however no intervention was done given the diseased LAD. Patient would be at high risk for intervention to the circumflex. Cardiology following the patient. Continue aspirin, statin, Plavix, beta-ivonne, Imdur I will await recommendations from cardiology today. Continue supplemental oxygen as needed. If patient continues to have shortness of breath and/or hypoxia I recommend consulting pulmonology for further recommendations. 4. Questionable pneumonia Continue azithromycin p.o. for 2 more days. 5. Urinary retention Patient has a history of cauda equina syndrome. She self caths at home. I recommend removing the Mack catheter and continuing with self catheterizations if possible as this is what the patient does while at home. 6. Hypertension Patient's beta-ivonne dose was increased to 25 mg p.o. twice daily. She was also started on losartan today, patient takes an ARB at home. Continue to monitor her blood pressure and adjust her medications as needed. Lovenox for DVT prophylaxis. (3) PNA (pneumonia) Qualifiers: Pneumonia type: due to unspecified organism Laterality: right Lung location : lower lobe of lung Qualified Code(s): J18.1 - Lobar pneumonia, unspecified organism
[2018-09-21] MEDS ORDERED: Metoprolol Tartrate 25 MG Tablet PO SCH (21:00)
== END 2018-09-21 15:45 ==
LOC: NEPC 02:50 → NEDA 04:51 → HCIS 06:48
PROVIDERS: ADMIT Hospitalist; ATTEND Hospitalist